=== PATIENT | male | born 1990 | race Caucasian/White ===

== ENCOUNTER 2018-07-18 16:07 | Emergency (ER) | payer BC, MEDICAID, SELFPAY ==
[2018-07-18 16:08] VITALS: BP 150/89; PULSE 78; RESP 16; TEMP 36.6; O2SAT 99; BMI 22.0
--- NOTE | 2018-07-18 16:44 | ED.VISSUMM ---
- ER Visit Summary Date of Service: 07/18/18 Chief Complaint: Right lower jaw dental pain. History of Present Illness: The patient is a 28 M lower jaw pain. Denies any fever. No swelling. Also pain radiating to his right ear. He does not have a primary care physician or a dentist. Physical Examination: Well appearing young male. Vital signs are stable. Afebrile. H EENT exam his face is unremarkable. There is no facial swelling. He is can easily open and close his mouth. There is no trismus. His right lower jaw the last molar on the right is very decayed. Large cavity large hole. The surrounding gum is swollen and tender. There is no drainable abscess. Other dentition are in reasonable shape. The upper dentition is unremarkable. Neck nontender no lymphadenopathy. Lungs clear to auscultation bilaterally. Heart regular rate and rhythm no murmur. Abdomen soft nontender. Otherwise exam unremarkable. Test Results: None Emergency Department Course and Treatment: Discharge follow-up with a oral surgeon. Treatment Plan: Evaluation by an oral surgeon at the right lower molar removed. Clindamycin for possible infection. Naprosyn for pain. Disposition: Discharge Impression: Right lower jaw molar pain secondary to dental cavity and dental infection This note was generated with [employer] dictation software. It may contain incorrect words, spelling, and punctuation that were not noted in review of the chart prior to signing ED Disposition - Plan for ED Patient: Chief Complaint: Dental Referrals: NOT,DEFINED [Primary Care Provider] -
--- NOTE | 2018-07-18 16:46 | ED.DEP ---
ED Disposition - Plan for ED Patient: Disposition: Home or Assisted Living Chief Complaint: Dental Instructions: ED Cavity Dental Prescriptions: Naproxen [Naprosyn] 500 mg PO BID PRN #20 tab Clindamycin [Cleocin] 300 mg PO 4X/DAY 10 Days cap Referrals: Bentley Milner DDS [STAFF PHYSICIAN] - As soon as possible Additional Instructions: Naprosyn for pain. Clindamycin for dental infection. Call and follow-up with Dr. Milner a local oral surgeon to be evaluated to possibly have that right lower molar tooth pulled.
[2018-07-18 16:59] VITALS: PULSE 82; RESP 17; O2SAT 98
== END 2018-07-18 17:00 | disposition home or self-care (01) ==
LOC: ED 16:56
PROVIDERS: Emergency Provider Emergency Medicine
DX: K02.9 Dental caries, unspecified (principal); K04.7 Periapical abscess without sinus; Z72.0 Tobacco use
CPT/HCPCS: 99282

== ENCOUNTER 2019-05-24 17:42 | Emergency (ER) | payer BC, MEDICAID, SELFPAY ==
[2019-05-24 17:43] VITALS: BP 129/84; PULSE 123; RESP 15; TEMP 36.6; O2SAT 97; BMI 22.0
--- NOTE | 2019-05-24 18:02 | ED.DCSUM_ITS ---
- ER Visit Summary Date of Service: 05/24/19 Chief Complaint: Left eye pain and swelling History of Present Illness: The patient is a 29 M who has pain and swelling of the left eye. Started a week ago. Is not getting any better. He is tried ibuprofen without any relief. Denies any visual changes. He denies any drainage. He does not wear any corrective lenses. He believes it may be a stye. Denies any injuries. Physical Examination: Vital signs reviewed. Left eye exam reveals a stye on the left lower eyelid. No drainage. No significant erythema. Extra ocular motions are intact without pain. Pupils are equal round reactive. Test Results: None performed Emergency Department Course and Treatment: Patient will be treated with bacitracin ophthalmic of the eye which will help on the lower eyelid. He will use warm compresses at home. Continue ibuprofen for pain. He will follow-up with ophthalmology Treatment Plan: [] Disposition: Discharge Impression: Left eye stye This note was generated with [employer] dictation software. It may contain incorrect words, spelling, and punctuation that were not noted in review of the chart prior to signing ED Disposition - Plan for ED Patient: Referrals: Care Physician,No Primary [Primary Care Provider] -
--- NOTE | 2019-05-24 18:04 | ED.DEP ---
ED Disposition - Plan for ED Patient: Disposition: Home or Assisted Living Instructions: Sty Referrals: Care Physician,No Primary [Primary Care Provider] - Butch Aguirre MD [STAFF PHYSICIAN] -
== END 2019-05-24 18:14 | disposition home or self-care (01) ==
LOC: ED 18:09
PROVIDERS: Emergency Provider Emergency Medicine
DX: H00.015 Hordeolum externum left lower eyelid (principal); Z72.0 Tobacco use
CPT/HCPCS: 99283

== ENCOUNTER 2019-07-16 22:45 | Emergency (ER) | payer BC, MEDICAID, SELFPAY ==
[2019-07-16 22:46] VITALS: BP 147/95; PULSE 114; RESP 16; TEMP 37.1; O2SAT 98; BMI 19.1
[2019-07-16 22:58] VITALS: TEMP 37.1
--- NOTE | 2019-07-16 23:13 | ED.DCSUM_ITS ---
- ER Visit Summary Date of Service: 07/16/19 Chief Complaint: Rash History of Present Illness: The patient is a 29 M with no primary care physician. He reports that last night he was stacking wood. States that he went to bed fine. Woke up this morning at 8 AM and had 2 lesions on his left arm and one on his right thumb. Reports that over the day he has had a red line that has extended from these. These areas do itch. He took a dose of Benadryl at 5 PM with relief of the itching. However, the red streaking continued to extend. Patient denies any constitutional symptoms. No fever, chills, nausea, or vomiting. On review of systems he does complain of pain to his left mandibular third molar. He states that he was supposed to have this pulled by Dr. Milner, but he had to reschedule this because his kids have been ill. Physical Examination: Vitals: Stable. Afebrile. General: Well-nourished and well-developed. Head: Normocephalic atraumatic. Dental: Left mandibular third molar is eroded to the gumline. There is no focal abscess. He has no trismus or edema the floor of his mouth. Neck: Supple, no lymphadenopathy. No JVD. Nontender. Cardiovascular: Regular rate and rhythm. No murmurs. Respiratory: No respiratory distress. Clear to auscultation bilaterally. Abdominal: Soft, nontender, nondistended, normal bowel sounds. No guarding, rebound, or peritoneal signs. Back: Nontender. Extremities: Nontender, no edema. Skin: Distal medial left forearm there is approximately 7 mm hive with what appears to be a 1 to 2 mm puncture in the middle of this. There is mild erythema. There is no induration or fluctuance. There is lymphangitic spread from this up into the antecubital fossa. The medial proximal left forearm there is a 4 cm hive. This looks similar to the other. There is no induration or fluctuance. However, there is no lymphangitic spread from this. On the lateral side of his right first metacarpal there is a 5 mm high. There is no induration or fluctuance here. However he has lymphangitic spread all the way up to the medial bicep. Neurologic: Alert and oriented ?3. Cranial nerves II through XII are intact. Normal strength and sensation. Psych: Normal affect. Emergency Department Course and Treatment: Patient was given a dose of clindamycin and prednisone p.o. Had a prolonged discussion with him about the possibility Jaelyn brown recluse bite. Clinically this does not appear to be c onsistent with this. There is no necrotic tissue. This appears to be a localized allergic reaction with lymphangitic spread. Treatment Plan: Patient will be discharged on clindamycin and 5 days of prednisone. Instructed to follow-up with Dr. Rain, who is next on list for no doc, in 2 days for a wound check. He is instructed to follow-up with Dr. Milner as previously scheduled for his dental extraction. He is also given the name of Dr. de to follow-up with that if this does end up being a brown recluse bite. He is instructed to return to the emergency department for any worsening symptoms. Disposition: To home in improved and stable condition. Impression: 1. Localized allergic reaction with lymphangitic spread to upper extremities bilaterally. 2. Dental pain. This note was generated with [employer] dictation software. It may contain incorrect words, spelling, and punctuation that were not noted in review of the chart prior to signing ED Disposition - Plan for ED Patient: Disposition: Home or Assisted Living Instructions: ALLERGIC REACTION, Other (Local) Prescriptions: Clindamycin [Cleocin] 300 mg PO 4X/DAY #80 cap Prescription Printed Prednisone [Deltasone] 60 mg PO DAILY #15 tab Prescription Printed Referrals: Mushtaq Galloway MD [STAFF PHYSICIAN] - 1 Week if not improving Bentley Milner DDS [STAFF PHYSICIAN] - Keep Rigoberto appointment Blessing Rain DO [STAFF PHYSICIAN] - 2 Days for wound check
[2019-07-16] MEDS: predniSONE 20 MG Tablet 60 MG PO (23:29)
[2019-07-16] MEDS: Clindamycin HCl 150 MG Capsule 300 MG PO (23:29)
[2019-07-16 23:33] VITALS: RESP 15
== END 2019-07-16 23:34 | disposition home or self-care (01) ==
LOC: ED 23:06
PROVIDERS: Emergency Provider Emergency Medicine
DX: T78.40XA Allergy, unspecified, initial encounter (principal); X58.XXXA Exposure to other specified factors, initial encounter; K08.89 Other specified disorders of teeth and supporting structures; Z72.0 Tobacco use
CPT/HCPCS: 99283

== ENCOUNTER 2021-04-04 19:06 | Emergency (ER) | payer BC, MEDICAID, SELFPAY ==
[2021-04-04 19:06] VITALS: BP 139/79; PULSE 92; RESP 18; TEMP 36.7; O2SAT 98; BMI 21.2
[2021-04-04 19:25] LABS: Bacteria 0 SEEN /hpf (None Seen); Mucous, Urine 0 SEEN /hpf (<or=2+); Red Blood Cells-Urine 0 SEEN /hpf (0-5); Squamous Epithelial Cells - UA 0 SEEN /hpf (0-5); White Blood Cells 0 SEEN /hpf (0-5)
[2021-04-04 19:27] LABS: Color, Urine Yellow (Yellow); Glucose, Dipstick Normal (Normal); Ketone-Dipstick Negative (Negative); Leukocyte Esterase-Dipstick Negative /ul (Negative); Nitrite-Dipstick Negative (Negative); Occult Blood-Urine Negative /ul (Negative); Protein-Dipstick Negative (Negative); Specific Gravity, Urine 1.005 (1.002-1.030); Urine Bilirubin Dipstick Negative (Negative); Urine Clarity Sl. Cloudy (Clear); Urine Urobilinogen Normal (Normal)
[2021-04-04 20:21] LABS: Absolute Lymphocyte Count 3.26 X10^3/uL (0.83-4.51); Absolute Neutrophil Count 7.7 X10^3/uL (2.0-7.7); Basophil# 0.06 X10^3/uL; Basophil% 0.5 % (0-1); Eosinophil# 0.18 X10^3/uL; Eosinophils% 1.5 % (0-5); Hematocrit 42.8 % (40-54); Hemoglobin 14.8 g/dL (13.0-16.5); Lymphocyte # 3.26 X10^3/ul (0.83-4.51); Lymphocyte % 27.2 % (19-41); Mean Corp Hgb Conc 34.6 g/dL (32-36); Mean Corpuscular Hgb 31.1 pg (27.0-32.0); Mean Corpuscular Volume 89.9 fL (80-94); Mean Platelet Vol. 9.5 fl (6.2-12.0); Monocyte# 0.72 X10^3/uL; NRBC Flagged by Analyzer 0 % (0-5); Neutrophil # 7.74 X10^3/uL (2.7-7.7); Neutrophil % 64.5 % (47-70); Platelet Count 271 K/mm3 (150-450); RBC Distribution Width CV 12.7 % (11.6-14.6); RBC Distribution Width SD 42.3 fl (35.1-43.9); Red Blood Count 4.76 M/mm3 (4.6-6.2)
[2021-04-04 20:34] LABS: Anion Gap 6 (5-15); BUN 14 mg/dL (7-18); BUN/Creat Ratio 14.3 RATIO (10-20); Chloride 106 mmol/L (98-107); Creatinine, Serum 0.98 mg/dL (0.70-1.30); EST Glomerular Filtration Rate 95 mL/min (>60); Est Glom Filt Rate - Afr Amer 116 mL/min (>60); Glucose 91 mg/dL (74-106); Potassium 3.9 mmol/L (3.5-5.1); Sodium Level 138 mmol/L (136-145)
[2021-04-04 21:54] LABS: AST(SGOT) 29 U/L (15-37); Alanine Aminotransfer ALT/SGPT 38 U/L (16-61); Albumin, Serum 4.3 g/dL (3.2-5.0); Alkaline Phosphatase 121 U/L (45-117); Bilirubin, Direct 0.19 mg/dL (0.00-0.30); Globulin 3.2 g/dL (2.2-4.2); Lipase 68 U/L (73-393); Protein, Total 7.5 g/dL (6.4-8.2)
--- NOTE | 2021-04-04 21:57 | EDS_ITS ---
HPI History of Present Illness Chief Complaint: Abd Pain Informant: patient Narrative Narrative: Patient is a 31-year-old male who presents to the emergency department for epigastric abdominal discomfort. This has been going on since this past Wednesday. This happens after eating. He is currently denying any significant pain. He denies any episodes of vomiting. He has not been nauseous. He denies any fevers or chills. No chest pain or shortness of breath. No radiation of the pain to his back. He had a few episodes of loose stools. No urinary symptoms. He states he does have a history of duodenal ulcers. He did take some Pepcid which gave him some mild relief. He does have a history of right inguinal hernia repair but no other abdominal surgeries. No urinary symptoms. PFSH PFSH Home Medications pantoprazole [Protonix] 40 mg PO DAILY #30 tab 04/04/21 [Rx Last Taken Unknown] Allergy/AdvReac Type Severity Reaction Status Date / Time Penicillins Allergy Hives Verified 04/04/21 19:08 Social History Smoking Status: Current every day smoker tobacco type: cigarettes ROS ROS ED Constitutional Constitutional ED: Denies chills or fever(s) Eyes Eyes: Denies change in vision ENT ENT ED: Denies epistaxis or rhinorrhea Cardiovascular Cardiovascular: Denies chest pain or palpitations Respiratory/Chest Respiratory/Chest: Denies cough, dyspnea or dyspnea on exertion Gastrointestinal Gastrointestinal: Reports abdominal pain and diarrhea; Denies constipation, melena or vomiting Genitourinary Genitourinary ED: Denies dysuria, hematuria or urinary frequency Musculoskeletal Musculoskeletal: Denies back pain or neck pain Integumentary Denies rash Neurologic Neurologic: Denies dizziness, headache(s) or weakness EXAM Physical Exam Const Vital Signs: 04/04/21 19:06 04/04/21 23:02 Temperature 98.1 F Temperature Source Temporal Pulse Rate 92 74 Respiratory Rate 18 17 Blood Pressure 139/79 H 123/71 H Blood Pressure Mean 99 Pulse Ox 98 99 Oxygen Delivery Method Room Air Positive well nourished and well developed General Appearance ED: well developed and NAD HEENT Reports normocephalic, head/scalp atraumatic and moist mucous membranes Eyes PERRL and EOMs intact bilaterally Neck supple Resp normal respiratory effort and clear to auscultation bilaterally Auscultation: Negative for rales, rhonchi or wheezes Cardio regular rate, regular rhythm and no murmurs GI normal to inspection, nondistended, normoactive bowel sounds and non-tender GI Narrative: Negative Kat sign. No pain over McBurney's point. Palpation: soft; Negative for guarding or rebound tenderness present Back/Spine no CVA tenderness Extremity normal to inspection General Extremety ED: Negative for edema or tenderness General Extremity: Negative for edema Neuro oriented x3, CN's II-XII intact bilaterally and no sensory deficits noted Sensorium / Orientation: alert Motor Exam: strength 5/5 throughout Psych mental status grossly normal Skin no rashes or lesions noted MDM MDM MDM Narrative Medical decision making narrative: Patient presents to the emergency department for epigastric pain. This is worse after eating. On arrival he is feeling better. He has no reproducible pain on my examination. Vital signs within normal limits. Basic lab work obtained. Patient's lab work did not reveal any significant acute abnormality. His white blood cell count was only minimally high. No elevation of his bilirubin or AST/ALT. His alkaline phos is mildly elevated. No urinary tract infection. He is resting comfortably in no symptoms throughout ED stay. Will recommend Protonix. This continues he may need ultrasound or EGD. He is to follow-up with his PCP. Return precautions are reviewed. He understands and is agreeable this plan. Lab Data Labs: Laboratory Results - last 24 hr 04/04/21 04/04/21 04/04/21 19:20 20:12 20:12 WBC 12.0 H RBC 4.76 Hgb 14.8 Hct 42.8 MCV 89.9 MCH 31.1 MCHC 34.6 RDW Std Deviation 42.3 RDW Coeff of Pipp[place] 12.7 Plt Count 271 MPV 9.5 Immature Gran % (Auto) 0.300 Neut % (Auto) 64.5 Lymph % (Auto) 27.2 [place] % (Auto) 6.0 Eos % (Auto) 1.5 Baso % (Auto) 0.5 Absolute Neuts (auto) 7.7 Absolute Lymphs (auto) 3.26 Nucleated RBC % 0 Sodium 138 Potassium 3.9 Chloride 106 Carbon Dioxide 26.0 Anion Gap 6 BUN 14 Creatinine 0.98 Estim Creat Clear Calc 99.00 Est GFR (MDRD) Af Amer 116 Est GFR (MDRD) Non-Af 95 BUN/Creatinine Ratio 14.3 Glucose 91 Calcium 9.0 Total Bilirubin Direct Bilirubin AST ALT Alkaline Phosphatase Total Protein Albumin Globulin Lipase Urine Color Yellow Urine Clarity Sl. Cloudy Urine pH 7.0 Ur Specific [place] 1.005 Urine Protein Negative Urine Glucose (UA) Normal Urine Ketones Negative Urine Occult Blood Negative Urine Nitrite Negative Urine Bilirubin Negative Urine Urobilinogen Normal Ur Leukocyte Esterase Negative Urine RBC 0 SEEN Urine WBC 0 SEEN Ur Squamous Epith Cells 0 SEEN Urine Bacteria 0 SEEN Urine Mucus 0 SEEN 04/04/21 20:12 WBC RBC Hgb Hct MCV MCH MCHC RDW Std Deviation RDW Coeff of [place] Plt Count MPV Immature Gran % (Auto) Neut % (Auto) Lymph % (Auto) [place] % (Auto) Eos % (Auto) Baso % (Auto) Absolute Neuts (auto) Absolute Lymphs (auto) Nucleated RBC % Sodium Potassium Chloride Carbon Dioxide Anion Gap BUN Creatinine Estim Creat Clear Calc Est GFR (MDRD) Af Amer Est GFR (MDRD) Non-Af BUN/Creatinine Ratio Glucose Calcium Total Bilirubin 0.60 Direct Bilirubin 0.19 AST 29 ALT 38 Alkaline Phosphatase 121 H Total Protein 7.5 Albumin 4.3 Globulin 3.2 Lipase 68 L Urine Color Urine Clarity Urine pH Ur Specific [place] Urine Protein Urine Glucose (UA) Urine Ketones Urine Occult Blood Urine Nitrite Urine Bilirubin Urine Urobilinogen Ur Leukocyte Esterase Urine RBC Urine WBC Ur Squamous Epith Cells Urine Bacteria Urine Mucus Discharge Plan Triage Chief Complaint: Abd Pain ED Provider: Santiago Childers Dx/Rx/DC Orders Clinical Impression: Abdominal pain Instructions: Abdominal Pain Prescriptions: New pantoprazole [Protonix] 40 mg tablet,delayed release (DR/EC) 40 mg PO DAILY Qty: 30 RF: 0 Primary Care Provider: Care Physician,No Primary Referrals: Care Physician,No Primary [Primary Care Provider] - 3-5 Days Disposition Disposition: Home, Self Care Discharge Date/Time: 04/04/21 23:02
[2021-04-04 23:02] VITALS: BP 123/71; PULSE 74; RESP 17; O2SAT 99
== END 2021-04-04 23:02 | disposition home or self-care (01) ==
PROVIDERS: Emergency Provider Emergency Medicine
DX: R10.13 Epigastric pain (principal); F17.210 Nicotine dependence, cigarettes, uncomplicated; Z87.11 Personal history of peptic ulcer disease
CPT/HCPCS: 80048; 80076; 81001; 83690; 85025; 99282; A4216

== ENCOUNTER 2021-12-18 07:28 | Emergency (ER) | payer BC, MEDICAID, SELFPAY ==
[2021-12-18 07:28] VITALS: BP 152/82; PULSE 71; RESP 16; TEMP 36.2; O2SAT 99; BMI 19.8
--- NOTE | 2021-12-18 08:03 | RAD_ITS ---
EXAM: XR CERVICAL SPINE, 4 OR 5 VIEWS CLINICAL INDICATION: neck pain TECHNIQUE: Frontal, lateral and bilateral oblique views of the cervical spine. This report was created using [employer] report generation technology. COMPARISON: None. FINDINGS: VERTEBRAE: Mild cervical kyphosis. Normal vertebral body heights and endplates. No spondylolisthesis. No significant facet arthropathy. DISC SPACES: Minimal C5-C6 disc space height narrowing. Normal remaining disc space heights. Normal bilateral cervical intervertebral neural foramina. SOFT TISSUES: Unremarkable. No prevertebral soft tissue widening. LUNG APICES: Clear. RAD/Cerv Spine 4 or 5 Views IMPRESSION: Minimal narrowing of the C5-C6 disc space height otherwise negative cervical spine radiographs. Electronically Signed: Db Garcia MD at 8:40 EDT ,
--- NOTE | 2021-12-18 08:04 | EX.ED.GENINJ ---
HPI History of Present Illness Chief Complaint: Other, Pain/Inj Narrative Narrative: 31-year-old male presenting with neck pain. He states it started after he was lifting heavy object on Wednesday. He states the pain is in his left trapezius and radiates to the lateral aspect of his left elbow. He denies any neck trauma. He states that he worked overnight and he was having trouble finishing his shift due to pain. He tried to make a appointment with his primary care physician but cannot get in until Wednesday. PFSH [facility] Medical History (Updated 12/18/21 @ 10:00 by Kitty Shaffer) Neck ache Home Medications pantoprazole [Protonix] 40 mg PO DAILY #30 tab 04/04/21 [Rx Last Taken Unknown] naproxen [Naprosyn] 500 mg PO BID PRN #20 tab 12/18/21 [Rx Last Taken Unknown] tizanidine [Zanaflex] 4 mg PO QHS PRN #14 tab 12/18/21 [Rx Last Taken Unknown] Allergy/AdvReac Type Severity Reaction Status Date / Time Penicillins Allergy Hives Verified 04/04/21 19:08 Social History Smoking Status: Current every day smoker tobacco type: cigarettes ROS ROS ED Constitutional Constitutional ED: Denies chills or fever(s) Eyes Eyes: Denies blurry vision ENT ENT ED: Denies rhinorrhea or sore throat Cardiovascular Cardiovascular: Denies chest pain or palpitations Respiratory/Chest Respiratory/Chest: Denies cough or dyspnea Gastrointestinal Gastrointestinal: Denies abdominal pain, nausea or vomiting Genitourinary Genitourinary ED: Denies dysuria or hematuria Musculoskeletal Musculoskeletal: Reports neck pain; Denies back pain Integumentary Denies rash Neurologic Neurologic: Denies headache(s), paresthesias or weakness EXAM Physical Exam Const Vital Signs: 12/18/21 07:28 Temperature 97.1 F L Temperature Source Temporal Pulse Rate 71 Respiratory Rate 16 Blood Pressure 152/82 H Blood Pressure Mean 105 Pulse Ox 99 Oxygen Delivery Method Room Air Positive well nourished General Appearance ED: NAD HEENT atraumatic Eyes PERRL and EOMs intact bilaterally Neck Neck Narrative: No midline spinal tenderness, deformity, step-off. There is tenderness to the left trapezius centrally. Left shoulder is nontender. He has full range of motion of the left shoulder. No pain palpated in the left upper extremity. Resp normal respiratory effort and clear to auscultation bilaterally Cardio regular rhythm Rate: regular rate Extremity normal to inspection and full ROM Neuro oriented x3 and CN's II-XII intact bilaterally Sensorium / Orientation: alert Skin no rashes or lesions noted and No no jaundice MDM MDM MDM Narrative Medical decision making narrative: Patient presenting with pain in the trapezius that radiates to the left side of his arm. It does not radiate into the hand. Patient given Toradol and Norflex IM. I obtained x-rays of the cervical spine which on my interpretation show no fracture or subluxation. The radiologist reads this as minimal disc narrowing at C5-C6. Patient felt improved with treatment. He is given Naprosyn and Zanaflex for home. Patient will follow up with PCP to resolution. Impression: 1. Cervical strain Radiography Diagnostic Testing: Clinical Impression(s) from Imaging Studies Cervical Spine X-Ray 12/18/21 08:03 IMPRESSION: Minimal narrowing of the C5-C6 disc space height otherwise negative cervical spine radiographs. Electronically Signed: Db Garcia MD at 8:40 EDT , Discharge Plan Triage Chief Complaint: Other, Pain/Inj ED Provider: Tani Merida Dx/Rx/DC Orders Instructions: Radiculopathy Cervical Prescriptions: New tizanidine [Zanaflex] 4 mg tablet 4 mg PO QHS PRN (Reason: muscle spasticity) Qty: 14 RF: 0 naproxen [Naprosyn] 500 mg tablet 500 mg PO BID PRN (Reason: pain) Qty: 20 RF: 0 No Action pantoprazole [Protonix] 40 mg tablet,delayed release (DR/EC) 40 mg PO DAILY Qty: 30 RF: 0 Stand Alone Forms: ED Work / School Excuse Primary Care Provider: Aristides Black Referrals: Aristides Black, PA [Primary Care Provider] - Disposition Disposition: Home, Self Care Discharge Date/Time: 12/18/21 10:01
[2021-12-18] MEDS: Orphenadrine 60 MG/2 ML Ampul IM (09:41)
[2021-12-18] MEDS: Ketorolac 15 MG/ML Vial IM (09:41)
== END 2021-12-18 10:01 | disposition home or self-care (01) ==
PROVIDERS: Emergency Provider Student in an Organized Health Care Education/Training Program; PCP Physician Assistant; Visit Provider Student in an Organized Health Care Education/Training Program
DX: S16.1XXA Strain of muscle, fascia and tendon at neck level, initial encounter (principal); F17.210 Nicotine dependence, cigarettes, uncomplicated; X58.XXXA Exposure to other specified factors, initial encounter
CPT/HCPCS: 72050; 96372; 99282

== ENCOUNTER → 2022-01-28 | Outpatient (CLI) | payer BC, MEDICAID, SELFPAY ==
--- NOTE | 2022-01-28 13:04 | MRI_ITS ---
STUDY: MRI CERVICAL SPINE WITHOUT CONTRAST REASON FOR EXAM: Male, 31 years old. pain, HNP c5-c6 left; neck and left arm pain TECHNIQUE: Standardized fat and water weighted pulse sequences were obtained in the sagittal and axial planes. Mild motion artifact is present. COMPARISON: Cervical spine x-ray dated December 18, 2021 FINDINGS: Normal foramen magnum and brainstem-cervical cord junction. Normal craniovertebral junction. Normal anterior atlantoaxial articulation. Normal odontoid process. There is straightening of the normal cervical lordosis. C2-3: Normal endplates. Mild disc desiccation. Normal disc height and morphology. Normal central canal and intervertebral neural foramina. C3-4: Normal endplates. Mild disc desiccation. Normal disc height and morphology. Normal central canal and intervertebral neural foramina. C4-5: Normal endplates. Mild disc desiccation. Normal disc height and morphology. Mild intrinsic central canal stenosis. Normal bilateral intervertebral neural foramina. C5-6: Normal endplates. Diffuse disc desiccation, mild disc space narrowing, and minimal annular bulging contributing to mild mass effect on anterior aspect of the cord and mild central canal stenosis. Moderate left foraminal stenosis at the origin with nerve root compression secondary to uncovertebral hypertrophy. Normal right neural foramen. C6-7: Normal endplates. Diffuse disc desiccation with mild disc space narrowing, with a left paracentral/foraminal disc protrusion contributing to moderate foraminal stenosis and compression of the nerve root at its origin. Mild intrinsic central canal stenosis and mass effect is also present on the anterior aspect of the cord asymmetric to the left. Normal right neural foramen. C7-T1: Normal endplates. Diffuse disc desiccation and mild posterior disc space narrowing with a shallow midline disc protrusion. Normal central canal and intervertebral neural foramina. Normal cervical cord. There is no demonstrated cervical cord syrinx cavity. Normal visualized soft tissue structures. MRI/Spine Cervical (Routine) IMPRESSION: 1. Multilevel degenerative changes, as described above. 2. C5-C6 and C6-C7 mild central canal stenosis and mild mass effect on anterior aspect of the cord and left foraminal stenosis with nerve root compression Electronically Signed: Miller Salinas MD at 16:09 EDT ,
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
== END | disposition home or self-care (01) ==
LOC: MRI 13:04
PROVIDERS: PCP Physician Assistant; Referring Provider Orthopaedic Surgery; Visit Provider Orthopaedic Surgery
DX: M50.222 Other cervical disc displacement at C5-C6 level (principal)
CPT/HCPCS: 70030; 72141

== ENCOUNTER 2022-02-17 07:29 | Observation (INO) | payer BC, MEDICAID, SELFPAY ==
--- NOTE | 2022-02-12 09:42 | EKG12_ITS ---
Test Reason : PREOP Blood Pressure : / mmHG Vent. Rate : 094 BPM Atrial Rate : 094 BPM P-R Int : 130 ms QRS Dur : 088 ms QT Int : 346 ms P-R-T Axes : 070 054 046 degrees QTc Int : 432 ms Normal sinus rhythm Normal ECG Confirmed by MELBA JARQUIN, SAMARA ([id number]), subeditor KORTNEY BRANNON [id number]) on 02/13/2022 10:33:40 A M Referred By: DOMINGUEZ Confirmed By:EMILY REILLY MD
[2022-02-12 10:15] LABS: Absolute Lymphocyte Count 2.39 X10^3/uL (0.83-4.51); Absolute Neutrophil Count 4.2 X10^3/uL (2.0-7.7); Basophil# 0.06 X10^3/uL; Basophil% 0.8 % (0-1); Eosinophil# 0.29 X10^3/uL; Eosinophils% 3.9 % (0-5); Hematocrit 44.1 % (40-54); Hemoglobin 15.2 g/dL (13.0-16.5); Lymphocyte # 2.39 X10^3/ul (0.83-4.51); Lymphocyte % 32.3 % (19-41); Mean Corp Hgb Conc 34.5 g/dL (32-36); Mean Corpuscular Hgb 32.5 pg (27.0-32.0); Mean Corpuscular Volume 94.2 fL (80-94); Mean Platelet Vol. 11.7 fl (6.2-12.0); Monocyte# 0.46 X10^3/uL; Monocyte% 6.2 % (0-10); NRBC Flagged by Analyzer 0 % (0-5); Neutrophil # 4.18 X10^3/uL (2.7-7.7); Neutrophil % 56.5 % (47-70); POSITIVE COUNT YES; Platelet Count 181 K/mm3 (150-450); RBC Distribution Width CV 14.2 % (11.6-14.6); RBC Distribution Width SD 49.1 fl (35.1-43.9); Red Blood Count 4.68 M/mm3 (4.6-6.2); White Blood Count 7.4 K/mm3 (4.4-11.0)
[2022-02-12 10:21] LABS: Prothrombin Time (Protime)PT. 12.9 SECONDS (11.7-14.9)
[2022-02-12 10:22] LABS: Partial Thromboplast Time 29.3 Seconds (24.1-36.2)
[2022-02-12 10:39] LABS: AST(SGOT) 26 U/L (15-37); Alanine Aminotransfer ALT/SGPT 38 U/L (16-61); Alkaline Phosphatase 108 U/L (45-117); Bilirubin, Direct 0.14 mg/dL (0.00-0.30); Globulin 3.2 g/dL (2.2-4.2); Magnesium 2.1 mg/dL (1.6-2.6); Protein, Total 7.2 g/dL (6.4-8.2)
[2022-02-12 10:54] LABS: Differential Indicated SCAN CRITERIA MET
[2022-02-12 11:08] LABS: Anion Gap 9 (5-15); BUN 10 mg/dL (7-18); BUN/Creat Ratio 12.1 RATIO (10-20); Calcium,Total 8.9 mg/dL (8.5-10.1); Chloride 109 mmol/L (98-107); Creatinine, Serum 0.83 mg/dL (0.70-1.30); EST Glomerular Filtration Rate 115 mL/min (>60); Est Glom Filt Rate - Afr Amer 140 mL/min (>60); Glucose 103 mg/dL (74-106); Sodium Level 141 mmol/L (136-145)
[2022-02-12 11:11] LABS: HIV - WCH Non-Reactive (Nonreactive); Hepatitis B Surface Antibody Non-Reactive; Hepatitis C Antibody Non-Reactive (Nonreactive)
[2022-02-12 14:38] LABS: Differential Comment SCANNED
[2022-02-13 11:06] LABS: Hepatitis A AB, Total Negative (Negative)
--- NOTE | 2022-02-16 14:18 | PCM.HP.BLA ---
History and Physical Date of Admission: 02/16/22 Wo Intake Vital Signs 01/09/22 08:31 Height 5 ft 8 in Weight: 131 lb BMI 19.9 Intake Visit Reasons: CERVICAL SPINE Allergies No Known Allergies Allergy (Verified 01/09/22 08:37) COUNTS INCLUDE 234 BEDS AT THE [facility] Medical History Neck ache Social History Smoking Status: Current every day smoker tobacco type: cigarettes HPI CERVICAL SPINE Details: Parts of this documentation were recorded by a scribe, this documentation accurately reflects the service provided and the decisions made by me, Dr. Oswaldo Snyder, DO 01/09/22 0829. RAMOS BLAKE is a 31 year old M NEW Pt here today for neck pain. Pt states 3 weeks ago he was moving a heavy TV and noticed a gradual pain in his neck which worsened over a few days. Pt states pain is on the left side with a burning nerve pain down his left arm and numbness in his thumb, index, and middle fingers. Pt states he has gone to 2 sessions of PT. Pt denies any previous injuries, surgeries, or injections on neck. Pt has had x-rays and a CT scan which he brought the disc for today. 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 This means he has to look up all the time. Is been very difficult to do of late after 3 weeks ago when he had the problem start lifting the heavy television. He describes a perfect C6 dermatome. The patient's pain has been severe. Medrol Dosepak barely touched it. On examination he has positive Spurling's to the left. He has pain down the arm with extension of his cervical spine. He has some weakness of the extensors of the wrist on the left. However the strange thing is that he also has weakness of the triceps with atrophy of the triceps on the left as compared to the right suggesting that its not only C6 but possibly also C7 nerve root unless he has an anomalous innervation. He has no long tract signs. Clonus is absent Babinski's are downgoing. 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 This completely straightens up the neck. We will order an MRI scan of the cervical spine as soon as is reasonably possible. He has 2 neurological deficits including the C6 and C7 nerve roots. Note that I can easily overpower his left triceps. I will see him after the MRI scan. He will probably need surgical intervention. Incidentally I will review the CT scan that was ordered but an MRI is still necessary. Ortho Exam General General: Yes no acute distress Neurologic: Yes alert and Yes oriented x3 Psychologic: Yes reasonable and appropriate Coding Level of Care Code Off vis,new,level 3 Diagnoses Herniated nucleus pulposus, Time Spent (min) 30 Assessment and Plan Assessment and Plan (1) Herniated nucleus pulposus,
[2022-02-17] VITALS (15 sets, daily range): BP systolic 111–134; BP diastolic 60–87; PULSE 79–93; RESP 12–18; TEMP 36.7–37.3; O2SAT 90–100; BMI 20.4
--- NOTE | 2022-02-17 | DISC_PTH ---
PATIENT: THELMA BLAKE LOC: MS3 U#:[id number] AGE/SX: 31/M [place] [facility] [place] [place]02/17/[address]: Dr. Oswaldo Snyder DO : 1990 BED: 1 DIS: 02/18/2022 SPEC #: [id number] RECD: 02/17/22 12:51 STATUS: MIO REShawna #: [id number] NATALIE: 02/17/22 00:[address]: Oswaldo Snyder DEPT: SURGICAL PATHOLOGY RECD BY: Jhon Bolaños ENTERED: 02/17/22 12:51 SP TYPE: DISC OTHR DR: ALIYA Zee Tissues: Intervertebral disc, NOS Procedures: Surgery Specimen Level III HEADER OPERATION: ERAS, anterior cervical fusion C6-7 PRE-OP DIAGNOSIS: Herniated nucleus polposus C6-7 TISSUE SUBMITTED: Cervical disc MICROSCOPIC DIAGNOSIS Intervertebral disc, C6-7, discectomy: Degenerative and reparative change. AM:mia 02/18/2022 MICROSCOPIC DESCRIPTION Slides are reviewed. GROSS DESCRIPTION Received in fixative is one container labeled with the patient's name and designated cervical disc. The specimen consists of multiple irregular fragments of shelton, indurated tissue that in aggregate measure 4 x 3.5 x 1 cm. Materials Tech sections are submitted in two cassettes. / SJ:mia 02/17/2022 TC:5 CPT: 53118
[2022-02-17] MEDS: dexAMETHasone 10 MG/ML Vial 8 MG IV (06:02)
[2022-02-17] MEDS: Lactated Ringers 1,000 ML 15 ML IV ×2 (06:04→11:13)
[2022-02-17] MEDS: Acetaminophen 500 MG Tablet 1000 MG PO (06:20)
[2022-02-17 06:21] LABS: Bedside Glucose 109 mg/dL (74-106)
[2022-02-17] MEDS: Clindamycin 900 MG/50 ML BAG 75 MG IV ×2 (08:00→16:13)
--- NOTE | 2022-02-17 08:15 | RAD_ITS ---
STUDY: X-RAY - CERVICAL SPINE REASON FOR EXAM: Male, 31 years old. POSITION CHECK #1 C6-7 ERAS, CERVICAL FUSION TECHNIQUE: 1 lateral view(s) of the cervical spine were obtained. COMPARISON: MRI of the cervical spine dated JANUARY 28, 2022 FINDINGS: The patient is intubated. A radiopaque/metallic surgical marker overlies the C6-C7 anterior aspect and intervertebral disc space. Normal anterior atlantoaxial articulation. Normal odontoid process. Normal cervical lordosis. There is multi-level endplate spondylosis. Minimal disc space narrowing at several levels. The soft tissue structures are unremarkable. RAD/Spine 1 View Any Level IMPRESSION: 1. A radiopaque/metallic surgical marker overlies the C6-C7 anterior aspect and intervertebral disc space Electronically Signed: Miller Salinas MD at 8:46 EDT ,
[2022-02-17] MEDS: Heparin 10,000 UNITS/10 ML Vial 10000 UNITS (08:46)
[2022-02-17] MEDS: THROMBIN (RECOMBINANT) 20,000 UNIT VIAL 20000 UNIT TOPICAL (08:46)
--- NOTE | 2022-02-17 09:05 | RAD_ITS ---
INDICATION: ERAS, ANTERIOR CERVICAL FUSION C5-7, C6-7 EXAMINATION/TECHNIQUE: X-RAY - XR Spine Cervical 1 View COMPARISON: Intraoperative single lateral view cervical spine radiograph from same day. FINDINGS: Intraoperative single lateral view of the left cervical spine was obtained for position check of the surgical pin. Surgical pin terminates in the C6-C7 intervertebral disc space. Remainder of the exam is unchanged. RAD/Spine 1 View Any Level IMPRESSION: Surgical pin now terminates in the C6-C7 intervertebral disc space.. Electronically Signed: Joce Connolly, at 9:42 EDT ,
--- NOTE | 2022-02-17 10:15 | RAD_ITS ---
EXAM: XR CERVICAL SPINE, 1 VIEW CLINICAL INDICATION: IMAGE 3 neck pain fusion TECHNIQUE: Lateral view of the cervical spine. This report was created using [employer] report generation technology. COMPARISON: Study done earlier today. FINDINGS: VERTEBRAE: Unremarkable. Preserved vertebral body height. No acute fracture. No spondylolisthesis. Preservation of the normal cervical lordosis. No significant facet arthropathy. DISC SPACES: Spinal fixation hardware noted in the spine at C6-7. There is/ are disc spacer(s) in place. SOFT TISSUES: Unremarkable. No prevertebral soft tissue widening. LUNG APICES: Clear. RAD/Spine 1 View Any Level IMPRESSION: Spinal fixation hardware noted in the spine at C6-7. There is/ are disc spacer(s) in place. Electronically Signed: Pietro Nath MD at 16:49 EDT ,
--- NOTE | 2022-02-17 10:42 | OP.PCM_ITS ---
Report of Operation Date of Procedure: 02/17/22 Description of Surgical Findings:: Preoperative diagnosis: Herniated disc C6-7 with severe left C7 radiculopathy Postoperative diagnosis: The same Procedures: #1 anterior cervical fusion C6-7 CPT code 07903 #2 anterior spine plate C6-7 CPT code 12920/59 #3 insertion of titanium cage C6-7 CPT code 24601 Surgeon: Dr. Snyder First assistants: No PISANO and Court Maloney NP Anesthesia: General endotracheal anesthesia administered by [facility] Estimated blood loss: Less than 30 cc Drains: 1/4 inch Turtlepoint Complications: None Procedure: Patient was taken to the OR where he was placed in the supine position on the operating table he was then placed under general endotracheal anesthesia. A Goldsmith catheter was inserted. Neuro monitoring placed their leads on the patient. A Kerlix was placed from 1 wrist to the other around the feet purposes of pulling down the shoulders during x-ray taking. Then prepped the right crest and the cervical area in the standard fashion. Initially was made a small incision over the right iliac crest and unit using a Jamshidi needle through the small incision and then into the bone and tamped into place 60 cc of BMA were obtained that were handed off to the technicians in the room the the stem cells from the rest of the cells and concentrated the stem cells 8-10 times. These were returned to us. Alignment incision starting in the midline at the predetermined point. At that point was made with a very small incision using the end of a needle and it was done preoperatively prior to the prep. Incision was carried to the right sternocleidomastoid muscle subcutaneous tissues were incised length of skin incision. We then elevated the subcutaneous tissues both cephalad and caudad exposing the platysma. Platysma was split along its medial border and the planes then exploited. First I opened the superficial cervical fascia followed by the exploitation of the pretracheal fascia. This fashion the trachea and esophagus were pulled to the left the carotid which was of course identified was then pulled to the right exposing the precervical fascia. We then identified what was thought to be C6-7 however needle was placed in there and the x-ray demonstrated that we were at C7-T1 so we simply moved up 1 level took another x-ray to confirm that it was 6 7 which it was before removal of the needle then cauterized a hole in the center of the disc to prevent losing the level. I then first to cauterize the anterior longitudinal ligament and periosteum above and below the space I then cauterized the edge of the coli muscles on each side and elevated them gently off of the disc space. Self-retaining belt maker retractors were then put in place giving us good access. We used a 15 blade to cut the anterior annulus removed it with pituitary rongeurs and then removed more nucleus from within the disc space with pituitary rongeurs and eventually with curettes. The curettes were also used to remove the thickened cartilage off of both endplates. Gave us good access by putting a distractor in on the right side giving us more exposure. Using a carlos bur I was able to remove the uncinate process posteriorly and large it and remove a little bit also of C6. In this fashion we took the pressure completely off of the base of the C7 nerve root. It was then checked with a nerve hook was found to be quite open in its foramen. I then used the carlos bur to bur the anterior osteophytes and flatten them out. I then used a trial 14 x 16-1/2 cage first we used an 8 and then we trialed up to a 9. This was the correct size. We had anesthesia pulled on the head for this of course. We then used the broaches to broach the space and the appropriate 9 mm large cage was opened. Filled it with demineralized bone matrix and we then soaked the bone matrix in the patient's own stem cells. Esthesia pulling on the head it was then tamped into place and countersunk a couple of millimeters. We then used a 26 mm spider plate centered at placed [address] and then used the awl to punch the other 3 holes 1 at a time followed by insertion of 14mm screws at each point and lastly we removed the locking pin and replaced it with another 14 mm screw. This was observed with a lateral x-ray was found to be satisfactory with excellent position of the cage the plate and the screws. Irri gation was carried out we then used a amniotic membrane on top of the plate to prevent adhesions to the trachea or the esophagus. Closure was then begun noted we did put in 1/4 inch Turtlepoint drain. Was platysma running fashion with 5-0 Vicryl and the skin was approximated using 5-0 Vicryl in interrupted fashion. 0 dressings were then applied and a safety pin was placed through the drain to prevent a suction into the wound. The patient was then recovered in the OR moved to his hospital bed and taken to recovery in satisfactory condition. This is the end of operative summary on Ramos Ruggiero. This is Dr. Snyder dictating.
--- NOTE | 2022-02-17 13:32 | PN.HOSP_ITS ---
Subjective Subjective Follow-up on postop medical management: 31y/o male with no significant PMHx except for nicotine dependence who comes in for elective neck surgery. Patient has been having neck pain that was noticed after moving a heavy TV. Associated with burning nerve pain down his left arm and numbness in his thumb index and middle fingers. 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 MRI of the cervical spine showed multilevel degenerative changes. There was C5-C6 and C6-7 mild central canal stenosis mass-effect on anterior protocol and left foraminal stenosis with nerve root compression. He had evidence of left triceps with weakness and atrophy. He had anterior cervical fusion of C6-7, anterior spine plate C6-C7, insertion of titanium cage C6-C7. Patient was seen in the postop period. He denied any new pain. He stated that his numbness and tingling was gone. He is able to move his upper extremities and lower extremities. Rest of review of systems is negative. Objective Data Objective Data Vital Signs: Vital Signs Temp Pulse Resp BP Pulse Ox 98.3 F 89 18 121/71 H 94 02/17/22 13:08 02/17/22 13:08 02/17/22 13:08 02/17/22 13:08 02/17/22 13:08 Oxygen Flow Rate (L/min) 4 Oxygen Delivery Method Room Air Weight: 61 kg Body Mass Index (BMI) 20.4 Intake & Output: Intake and Output for Last 24 Hours 02/15/22 02/16/22 02/17/22 23:59 23:59 23:59 Intake Total 2152 / 2152 Output Total 1000 / 1000 Balance 1152 / 1152 Lab / Micro Data Result Diagrams: 02/12/22 09:28 02/12/22 09:28 Labs: Laboratory Results - last 24 hr 02/17/22 06:10: POC Glucose 109 H Micro: Microbiology 02/12/22 09:28 Swab (Method) Nasal Screen MRSA/MSSA - Final Radiography Diagnostic Testing: Radiology Impression Spine X-Ray 02/17/22 08:15 IMPRESSION: 1. A radiopaque/metallic surgical marker overlies the C6-C7 anterior aspect and intervertebral disc space Electronically Signed: Miller Salinas MD at 8:46 EDT Reading Location ID and State: [facility] / [place] , Service support , Spine X-Ray 02/17/22 09:05 IMPRESSION: Surgical pin now terminates in the C6-C7 intervertebral disc space.. Electronically Signed: Joce Connolly, at 9:42 EDT , Physical Exam Narrative Physical exam: General: Alert, Oriented x3, Cooperative, No apparent distress HEENT: Soft cervical spine in place Oral: Moist Mucosa Neck: Supple Lungs: Clear to auscultation Cardiovascular: HS I+II, regular, no murmurs Abdomen: Bowel Sounds Present, Soft, Non Tender Extremities: No edema Skin: No rashes, No breakdown Neurological: Grossly intact Psych/Mental Status: Appropriate Assessment & Plan Assessment/Plan (1) Herniated nucleus pulposus, C5-6 left: (2) Herniated nucleus pulposus, C6-7 left: PLAN: 1. POD #0, s/p cervical spine surgery?anterior cervical fusion, anterior cervical plate C6-C7 Patient with herniated disc (C6-7)with severe left C7 radiculopathy Pain is fairly controlled, continue on dexamethasone, pain medication, IV fluids PT and OT to evaluate and treat Follow-up on recommendations from neurosurgery. 2. Nicotine dependence, on replacement 3. DVT prophylaxis?SCDs Charges/Coding Visit Charges Office Visits / Consults: 44873 OV L4 New
[2022-02-17] MEDS: oxyCODONE 5 MG Tablet PO ×3 (13:37→21:40)
[2022-02-17] MEDS: dexAMETHasone 4 MG/ML Vial IV ×2 (13:38→18:46)
[2022-02-17] MEDS: 0.9% Saline Lock 10 ML Syringe IV ×2 (13:38→22:44)
[2022-02-17] MEDS: Nicotine Polacrilex 2 MG GUM PO ×2 (15:23→18:45)
[2022-02-17] MEDS: Lactated Ringers 1,000 ML 100 ML IV (16:13)
[2022-02-17] MEDS: Ensure Surgery 237 ML LIQUID PO (16:13)
[2022-02-17] MEDS: Morphine 2 MG/ML Syringe IV (22:44)
[2022-02-18] MEDS: Clindamycin 900 MG/50 ML BAG 75 MG IV (00:02)
[2022-02-18] MEDS: 0.9% Saline Lock 10 ML Syringe IV ×3 (00:02→09:09)
[2022-02-18] MEDS: dexAMETHasone 4 MG/ML Vial 2 MG IV ×2 (00:03→05:44)
[2022-02-18] MEDS: Lactated Ringers 1,000 ML 100 ML IV (03:28)
[2022-02-18] MEDS: oxyCODONE 5 MG Tablet PO ×3 (03:30→13:31)
[2022-02-18 03:42] VITALS: BP 119/74; PULSE 67; RESP 18; TEMP 36.8; O2SAT 98
[2022-02-18 05:17] LABS: Absolute Lymphocyte Count 0.86 X10^3/uL (0.83-4.51); Absolute Neutrophil Count 14.2 X10^3/uL (2.0-7.7); Basophil# 0.01 X10^3/uL; Basophil% 0.1 % (0-1); Hematocrit 38.6 % (40-54); Hemoglobin 13.3 g/dL (13.0-16.5); Lymphocyte # 0.86 X10^3/ul (0.83-4.51); Lymphocyte % 5.3 % (19-41); Mean Corp Hgb Conc 34.5 g/dL (32-36); Mean Corpuscular Hgb 32.5 pg (27.0-32.0); Mean Corpuscular Volume 94.4 fL (80-94); Monocyte# 1.01 X10^3/uL; Monocyte% 6.2 % (0-10); NRBC Flagged by Analyzer 0 % (0-5); Neutrophil # 14.17 X10^3/uL (2.7-7.7); Neutrophil % 87.7 % (47-70); Platelet Count 230 K/mm3 (150-450); RBC Distribution Width CV 14.1 % (11.6-14.6); RBC Distribution Width SD 49.2 fl (35.1-43.9); Red Blood Count 4.09 M/mm3 (4.6-6.2); White Blood Count 16.2 K/mm3 (4.4-11.0)
[2022-02-18 05:40] LABS: ALB/GLOB Ratio 1.1 RATIO (0.9-2.4); AST(SGOT) 25 U/L (15-37); Alanine Aminotransfer ALT/SGPT 36 U/L (16-61); Albumin, Serum 3.4 g/dL (3.2-5.0); Alkaline Phosphatase 92 U/L (45-117); Anion Gap 6 (5-15); BUN 7 mg/dL (7-18); BUN/Creat Ratio 12.7 RATIO (10-20); Calcium,Total 8.7 mg/dL (8.5-10.1); Chloride 106 mmol/L (98-107); Creatinine, Serum 0.55 mg/dL (0.70-1.30); EST Glomerular Filtration Rate 184 mL/min (>60); Est Glom Filt Rate - Afr Amer 223 mL/min (>60); Estimated Creatinine Clearance 169.44 ml/min; Glucose 147 mg/dL (74-106); Potassium 4.1 mmol/L (3.5-5.1); Protein, Total 6.4 g/dL (6.4-8.2); Sodium Level 138 mmol/L (136-145)
[2022-02-18 09:08] VITALS: BP 111/75; PULSE 81; RESP 18; TEMP 37; O2SAT 99
--- NOTE | 2022-02-18 09:51 | PN.HOSP_ITS ---
Subjective Subjective Follow-up on postop medical management: Patient was seen and examined. Patient complained of neck pain. He denied any fever or chills. He is able to move all extremities. Objective Data Objective Data Vital Signs: Vital Signs Temp Pulse Resp BP Pulse Ox 98.6 F 81 18 111/75 99 02/18/22 09:08 02/18/22 09:08 02/18/22 09:08 02/18/22 09:08 02/18/22 09:08 Oxygen Flow Rate (L/min) 4 Oxygen Delivery Method Room Air Weight: 61 kg Body Mass Index (BMI) 20.4 Intake & Output: Intake and Output for Last 24 Hours 02/16/22 02/17/22 02/18/22 23:59 23:59 23:59 Intake Total 4175.33 / 4175.33 1090.00 / 1090.00 Output Total 3800 / 5650 2550 / 2550 Balance 375.33 / -1474.67 -1460.00 / -1460.00 Lab / Micro Data Result Diagrams: 02/18/22 05:06 02/18/22 05:06 Labs: Laboratory Results - last 24 hr 02/18/22 05:06: WBC 16.2 H, RBC 4.09 L, Hgb 13.3, Hct 38.6 L, MCV 94.4 H, MCH 32.5 H, MCHC 34.5, RDW Std Deviation 49.2 H, RDW Coeff of Pippa 14.1, Plt Count 230, MPV 10.0, Immature Gran % (Auto) 0.700, Neut % (Auto) 87.7 H, Lymph % (Auto) 5.3 L, [place] % (Auto) 6.2, Eos % (Auto) 0.0, Baso % (Auto) 0.1, Absolute Neuts (auto) 14.2 H, Absolute Lymphs (auto) 0.86, Nucleated RBC % 0 02/18/22 05:06: Sodium 138, Potassium 4.1, Chloride 106, Carbon Dioxide 26.0, Anion Gap 6, BUN 7, Creatinine 0.55 L, Estim Creat Clear Calc 169.44, Est GFR (MDRD) Af Amer 223, Est GFR (MDRD) Non-Af 184, BUN/Creatinine Ratio 12.7, Glucose 147 H, Calcium 8.7, Total Bilirubin 0.70, AST 25, ALT 36, Alkaline Phosphatase 92, Total Protein 6.4, Albumin 3.4, Globulin 3.0, Albumin/Globulin Ratio 1.1 Micro: Microbiology 02/12/22 09:28 Swab (Method) Nasal Screen MRSA/MSSA - Final Radiography Diagnostic Testing: Radiology Impression Spine X-Ray 02/17/22 10:15 IMPRESSION: Spinal fixation hardware noted in the spine at C6-7. There is/ are disc spacer(s) in place. Electronically Signed: Pietro Nath MD at 16:49 EDT Reading Location ID and State: [facility] / [place] , Service support , Physical Exam Narrative General: Alert, Oriented x3, Cooperative, No apparent distress HEENT: Soft cervical spine in place Oral: Moist Mucosa Neck: Supple Lungs: Clear to auscultation Cardiovascular: HS I+II, regular, no murmurs Abdomen: Bowel Sounds Present, Soft, Non Tender Extremities: No edema Skin: No rashes, No breakdown Neurological: Grossly intact Psych/Mental Status: Appropriate Assessment & Plan Assessment/Plan (1) Herniated nucleus pulposus, C5-6 left: (2) Herniated nucleus pulposus, C6-7 left: PLAN: 1. POD #1, s/p cervical spine surgery?anterior cervical fusion, anterior cervical plate C6-C7 Patient with herniated disc (C6-7)with severe left C7 radiculopathy Continue on dexamethasone, pain medication, IV fluids PT/OT to evaluate and treat Follow-up on recommendations from neurosurgery. 2. Nicotine dependence, on replacement 3. DVT prophylaxis?SCDs Charges/Coding Visit Charges Inpatient E&M: 60711 Subs Hosp L2
--- NOTE | 2022-02-18 10:30 | CASEMGMT ---
RN STEPHANIE Assessment: Face to Face with pt for initial transition planning/care coordination assessment. RN CM introduced self and role at [facility], pt voices understanding and consents to assessment. Pt is A/O x4 and answers all questions appropriately at this time. Pt sitting up in bed in no distress. Care providers, pharmacy, and demographics verified/updated. Admitting Dx: Anterior cervical fusion PCP:ALIYA Cates Specialists:Claudio, spine surgeon Preferred Pharmacy: [facility] Retail Insurance: [employer] [place] [employer] Prescription Benefit: yes LW/HPOA: Pt denies having a LW/DPOA and denies need for info regarding AD. LNOK: Froylan Ruggiero, father; Emily Ruggiero, Living Arrangements: Pt lives with and 4 children in a three story home with 5 steps to enter with a rail. Pt reports he is I in ADL's and denies concerns at home. Transportation: Pt drives self and denies concerns with transportation. Pt able to transport until pt able to drive. DME/HHC/SNF: Pt has crutches at home, does not typically use AD. Pt denies hx of HHC or SNF stays. Pt states no concerns with going home at time of dc. Pt states no further concerns/needs. CM to follow. Advised pt to ask CM if any further question/concerns/needs arise, voices understanding. Pt Goal: Home Plan: Home
[2022-02-18] MEDS: Acetaminophen 500 MG Tablet 1000 MG PO (12:17)
--- NOTE | 2022-02-18 13:03 | PCM.DC ---
Discharge Instructions Follow Up Care Test Results: Test results from this visit will be discussed in further detail at your follow-up appointment, if applicable. Discharge Plan Admission Admit Date/Time: 02/17/22 07:29 Primary Reason for Your Visit: cervical fusion Attending Provider: Oswaldo Snyder Primary Care Provider: Aristides Black Consulting Providers: Kaya Yepez Discharge Orders/Prescriptions Prescriptions: No Action cyclobenzaprine 10 mg Tablet 10 mg PO TID PRN (Reason: Pain) RF: 0 naproxen 500 mg Tablet,Delayed Release (Dr/Ec) 500 mg PO BID RF: 0 Referrals / Follow Up: Aristides Black, PA [Primary Care Provider] - Disposition Disposition (needs filled in before D/C Order can be placed): Home, Self Care
--- NOTE | 2022-02-18 13:04 | PCM.DC.SUM ---
Providers Date of Admission: 02/17/22 Primary Care Physician: ALIYA Zee Consultations 02/17/22 12:52 Consult: Hospitalist Routine Consulting Provider: Kaya Yepez Reason for Consult: med management EMERGENT Consult: No MD Notified: Yes Date Notified: 02/17/22 Time Notified: 13:12 Method of Notification: Text Reason For Visit: ANTERIOR CERVICAL FUSION Diagnosis Discharge Diagnosis (1) Herniated nucleus pulposus, C5-6 left: Status: Acute Code(s): M50.222 - Other cervical disc displacement at C5-C6 level (2) Herniated nucleus pulposus, C6-7 left: Status: Acute Code(s): M50.223 - Other cervical disc displacement at C6-C7 level Medications at Discharge Home Medications cyclobenzaprine 10 mg PO TID PRN 02/09/22 naproxen 500 mg PO BID 02/09/22 Hospital Course Summary of Care Provided Hospital Course: This patient was admitted yesterday. He underwent anterior cervical fusion at the C6-7 level. He tolerated the procedure well. Today he reports his his left arm pain is completely gone. His tricep strength has increased. His voice is clear. He has no Carl syndrome. Change the dressing and remove the drain. Incision is dry and healing well. I gave him directions regarding his activities. He is also to make an appointment 1 week from to see me in the office. He is given oxycodone 01/27/2025's for pain #40. Weight / BMI Weight Weight: 134 lb 7.712 oz Body Mass Index (BMI) 20.4 ABG / Lab / Microbiology Data Result Diagrams: 02/18/22 05:06 02/18/22 05:06 Laboratory: Laboratory Results - last 24 hr 02/18/22 05:06: WBC 16.2 H, RBC 4.09 L, Hgb 13.3, Hct 38.6 L, MCV 94.4 H, MCH 32.5 H, MCHC 34.5, RDW Std Deviation 49.2 H, RDW Coeff of Pippa 14.1, Plt Count 230, MPV 10.0, Immature Gran % (Auto) 0.700, Neut % (Auto) 87.7 H, Lymph % (Auto) 5.3 L, [place] % (Auto) 6.2, Eos % (Auto) 0.0, Baso % (Auto) 0.1, Absolute Neuts (auto) 14.2 H, Absolute Lymphs (auto) 0.86, Nucleated RBC % 0 02/18/22 05:06: Sodium 138, Potassium 4.1, Chloride 106, Carbon Dioxide 26.0, Anion Gap 6, BUN 7, Creatinine 0.55 L, Estim Creat Clear Calc 169.44, Est GFR (MDRD) Af Amer 223, Est GFR (MDRD) Non-Af 184, BUN/Creatinine Ratio 12.7, Glucose 147 H, Calcium 8.7, Total Bilirubin 0.70, AST 25, ALT 36, Alkaline Phosphatase 92, Total Protein 6.4, Albumin 3.4, Globulin 3.0, Albumin/Globulin Ratio 1.1 Microbiology: Microbiology 02/12/22 09:28 Swab (Method) Nasal Screen MRSA/MSSA - Final Radiography Diagnostic Testing: Radiology Impression Spine X-Ray 02/17/22 10:15 IMPRESSION: Spinal fixation hardware noted in the spine at C6-7. There is/ are disc spacer(s) in place. Electronically Signed: Pietro Nath MD at 16:49 EDT Reading Location ID and State: [facility] [place] / [place] , Service support , Meaningful Use Info Meaningful Use Diagnoses (Choose all that apply): None applicable Discharge Plan Admission Admit Date/Time: 02/17/22 07:29 Primary Reason for Your Visit: cervical fusion Attending Provider: Oswaldo Snyder Primary Care Provider: Aristides Black Consulting Providers: Kaya Yepez Discharge Orders/Prescriptions Prescriptions: No Action cyclobenzaprine 10 mg Tablet 10 mg PO TID PRN (Reason: Pain) RF: 0 naproxen 500 mg Tablet,Delayed Release (Dr/Ec) 500 mg PO BID RF: 0 Referrals / Follow Up: Aristides Black PA [Primary Care Provider] - Disposition Disposition (needs filled in before D/C Order can be placed): Home, Self Care
[2022-02-18 15:21] VITALS: BP 115/73; PULSE 78; RESP 18; TEMP 36.9; O2SAT 98
== END 2022-02-18 16:38 | disposition home or self-care (01) ==
LOC: SDC 11:35 → MS3 11:35
PROVIDERS: Anesthesiology; Internal Medicine; Admitting Provider Orthopaedic Surgery; PCP Physician Assistant; Referring Provider Orthopaedic Surgery; Visit Provider Orthopaedic Surgery
PROC: (CPT 22551; principal; 2022-02-17 07:00)
DX: M47.22 Other spondylosis with radiculopathy, cervical region (principal); F17.210 Nicotine dependence, cigarettes, uncomplicated; M48.02 Spinal stenosis, cervical region; M50.222 Other cervical disc displacement at C5-C6 level
CPT/HCPCS: 22551; 22845; 22853; 00670; 20931; 36415; 72020; 80048; 80053; 80076; 82962; 83735; 85025; 85610; 85730; 86703; 86706; 86708; 86803; 87081; 88304; 93005; 96361; 96365; 96366; 96375; 96376; 97161; 99218; 99251; 99406; C1713; J7120; A4216; G0378; G0463; J3475

== ENCOUNTER 2025-05-19 13:49 | Emergency (ER) | payer BC, MEDICAID, SELFPAY ==
[2025-05-19 13:50] VITALS: BP 148/103; PULSE 92; RESP 16; TEMP 37.2; O2SAT 100; BMI 21.4
--- NOTE | 2025-05-19 13:59 | RAD_ITS ---
PROCEDURE: HAND MIN 3 VIEWS 05/19/2025 REASON FOR EXAM: FALL, PAIN/SWELLING. Initial encounter. TECHNIQUE: HAND MIN 3 VIEWS Laterality: Right COMPARISON: None. FINDINGS: Bones: No fracture appreciated. Joints: No significant arthritis Soft tissues: Difficult to assess soft tissues. Palmar surface swelling may be present. Other: RAD/Hand Min 3 Views IMPRESSION: No acute fracture appreciated. Reading Location: [facility]
--- NOTE | 2025-05-19 15:33 | EX.ED.UPPERE ---
HPI History of Present Illness Chief Complaint: Upper Extremity Injury Narrative Narrative: 35-year-old male who denies significant past medical history, [id number], presents with injury to his right hand that he sustained yesterday evening. He states that he was in a foot race, running in the street, when he fell forward and tumbled falling onto his hands. He now has pain in his right hand at the base of his right thumb. He denies other injuries. He states he is here because he wants to make sure that his hand is not broken. His pain is located in the thenar eminence and he denies any wrist pain or elbow pain. [facility] Medical History Anxiety Alcohol use History of steroid therapy Arthritis Excessive bleeding Injury of head and neck Heartburn Smoker Neck ache Allergy/AdvReac Type Severity Reaction Status Date / Time Penicillins Allergy Hives Verified 05/19/25 13:50 horseradish AdvReac PT UNSURE Verified 05/19/25 13:50 OF REACTION tramadol (From Ultram) AdvReac Swelling Verified 05/19/25 13:50 Family History no significant family his Surgical History Hx of wisdom tooth extraction Hx of inguinal hernia surgery Social History Smoking Status: Current every day smoker tobacco type: cigarettes ROS ROS ED ROS Narrative Review of systems positive for right hand pain at the base of the right thumb. Worse with palpation and movement of his right thumb. No wrist pain, no elbow pain, denies other injuries. EXAM Physical Exam Narrative Exam Narrative: GCS 15. ABCs are intact. Cardiovascular examination regular rate and rhythm. Lungs clear to auscultation bilaterally. Abdomen soft nontender without guarding or rebound. Positive bowel sounds. Focused examination of the right hand does show mild tenderness to palpation in the right palmar thenar eminence. He is able to oppose his thumb. Good capillary refill of thumb. No tenderness to distal radius. Full range of motion of wrist. Palpable radial pulse. Const Vital Signs: 05/19/25 13:50 Temperature 99.0 F Temperature Source Oral Pulse Rate 92 Respiratory Rate 16 Blood Pressure 148/103 H Blood Pressure Mean 118 Pulse Ox 100 Oxygen Delivery Method Room Air MDM MDM MDM Narrative Medical decision making narrative: Differential diagnosis includes but not limited to hand contusion versus fracture versus sprain/strain. Patient declines any oral analgesics and declined ice pack. X-rays were obtained of the right hand and 3 views per protocol and interpreted by myself independently. On my independent interpretation of x-rays of the right hand, there is no evidence of acute fracture or dislocation. I reviewed the radiology report which confirms my independent interpretation. At this point in time I feel he can be discharged to take [id number] medications like Tylenol and ibuprofen and continue ice and elevation as needed for pain. He was agreeable to a Velcro thumb spica splint for support. He will follow-up with his primary care provider. Return instructions reviewed. Disposition is discharged home in stable condition. History & Record Review Discussion w/independent historian: Patient Discharge Plan Triage Chief Complaint: Upper Extremity Injury ED Provider: Db Lund Dx/Rx/DC Orders Clinical Impression: Contusion of hand, right, Sprain of right thumb Instructions: ED Hand Contusion Primary Care Provider: Care Physician,No Primary Referrals: Aristides Black PA [Non-Staff] - 1 Week if not improving Activity Restrictions/Additional Instructions: [id number] medications like Tylenol or ibuprofen as needed for pain. Wear the thumb spica splint for support. You may remove it for bathing and sleeping. Exercise your right thumb a few times a day. Follow-up with your primary care provider. Return with new or worsening symptoms. Print Language: Liberian Disposition Disposition: Home, Self Care
--- OUTSIDE RECORDS SUMMARY | 2025-05-19 15:41 | XMS RPT_ITS | CCD ---
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 or subluxations are noted. The disc spaces are well preserved. There is mild osteophyte formation. The neural foramina are patent. The prevertebral soft tissues are normal. IMPRESSION IMPRESSION: Status post C6-7 anterior spinal fusion. Cervical spine mild degenerative changes. Mall Plant Caretaker: [facility] Transcribe Date/Time: Feb 16 2023 1:51P Dictated by : DOMINICK KELSEY MD This examination was interpreted and the report reviewed and electronically signed by: DOMINICK KELSEY MD on Feb 16 2023 1:53PM [facility] XR HAND 3V PA/LAT/OBL LTon 0 02-16-2023 XR HAND 3V PA/LAT/OBL LT * * *Final Report* * * DATE OF EXAM: Feb 16 2023 1:49PM WOX 5345 - XR HAND 3V PA/LAT/OBL LT / PROCEDURE REASON: Fall, initial encounter * * * * Physician Interpretation * * * * Examination: XR WRIST 3V PA/LAT/OBL LT, XR HAND 3V PA/LAT/OBL LT History: Fall, initial encounter Technique: XR WRIST 3V PA/LAT/OBL LT, XR HAND 3V PA/LAT/OBL LT Comparison: None RESULT: 3 views of the left hand and 3 views of the left wrist show no fracture or focal bony abnormality. Normal mineralization and alignment. Joint spaces are maintained IMPRESSION: NO EVIDENCE OF ACUTE FRACTURE Mall Plant Caretaker: [place] Transcribe Date/Time: Feb 16 2023 1:53P Dictated by : ZANDRA KWAN MD This examination was interpreted and the report reviewed and electronically signed by: ZANDRA KWAN MD on Feb 16 2023 1:56PM EST [id number] Normal [facility] XR Hand - left PA and Latera l and Obliqueon 02-16-2023 * * *Final Report* * * DATE OF EXAM: Feb 16 2023 1:49PM WOX 5345 - XR HAND 3V PA/LAT/OBL LT / PROCEDURE REASON: Fall, initial encounter * * * * Physician Interpretation * * * * Examination: XR WRIST 3V PA/LAT/OBL LT, XR HAND 3V PA/LAT/OBL LT History: Fall, initial encounter Technique: XR WRIST 3V PA/LAT/OBL LT, XR HAND 3V PA/LAT/OBL LT Comparison: None RESULT: 3 views of the left hand and 3 views of the left wrist show no fracture or focal bony abnormality. Normal mineralization and alignment. Joint spaces are maintained DIVISION OF RADIOLOGY Provider, [facility] - 02/16/2023 * * *Final Report* * * DATE OF EXAM: Feb 16 2023 1:49PM WOX 5345 - XR HAND 3V PA/LAT/OBL LT / PROCEDURE REASON: Fall, initial encounter * * * * Physician Interpretation * * * * Examination: XR WRIST 3V PA/LAT/OBL LT, XR HAND 3V PA/LAT/OBL LT History: Fall, initial encounter Technique: XR WRIST 3V PA/LAT/OBL LT, XR HAND 3V PA/LAT/OBL LT Comparison: None RESULT: 3 views of the left hand and 3 views of the left wrist show no fracture or focal bony abnormality. Normal mineralization and alignment. Joint spaces are maintained IMPRESSION IMPRESSION: NO EVIDENCE OF ACUTE FRACTURE Mall Plant Caretaker: [facility] Transcribe Date/Time: Feb 16 2023 1:53P Dictated by : ZANDRA KWAN MD This examination was interpreted and the report reviewed and electronically signed by: ZANDRA KWAN MD on Feb 16 2023 1:56PM EST [facility] XR WRIST 3V PA/LAT/OBL LTon 02-16-2023 XR WRIST 3V PA/LAT/OBL LT * * *Final Report* * * DATE OF EXAM: Feb 16 2023 1:49PM WOX 5270 - XR WRIST 3V PA/LAT/OBL LT / PROCEDURE REASON: Fall, initial encounter * * * * Physician Interpretation * * * * Examination: XR WRIST 3V PA/LAT/OBL LT, XR HAND 3V PA/LAT/OBL LT History: Fall, initial encounter Technique: XR WRIST 3V PA/LAT/OBL LT, XR HAND 3V PA/LAT/OBL LT Comparison: None RESULT: 3 views of the left hand and 3 views of the left wrist show no fracture or focal bony abnormality. Normal mineralization and alignment. Joint spaces are maintained IMPRESSION: NO EVIDENCE OF ACUTE FRACTURE Mall Plant Caretaker: [facility] Transcribe Date/Time: Feb 16 2023 1:53P Dictated by : ZANDRA KWAN MD This examination was interpreted and the report reviewed and electronically signed by: ZANDRA KWAN MD on Feb 16 2023 1:56PM EST [id number] Normal [facility] XR Wrist - left PA and Later al and Obliqueon 02-16-2023 * * *Final Report* * * DATE OF EXAM: Feb 16 2023 1:49PM WOX 5270 - XR WRIST 3V PA/LAT/OBL LT / PROCEDURE REASON: Fall, initial encounter * * * * Physician Interpretation * * * * Examination: XR WRIST 3V PA/LAT/OBL LT, XR HAND 3V PA/LAT/OBL LT History: Fall, initial encounter Technique: XR WRIST 3V PA/LAT/OBL LT, XR HAND 3V PA/LAT/OBL LT Comparison: None RESULT: 3 views of the left hand and 3 views of the left wrist show no fracture or focal bony abnormality. Normal mineralization and alignment. Joint spaces are maintained DIVISION OF RADIOLOGY Provider, [facility] - 02/16/2023 * * *Final Report* * * DATE OF EXAM: Feb 16 2023 1:49PM WOX 5270 - XR WRIST 3V PA/LAT/OBL LT / PROCEDURE REASON: Fall, initial encounter * * * * Physician Interpretation * * * * Examination: XR WRIST 3V PA/LAT/OBL LT, XR HAND 3V PA/LAT/OBL LT History: Fall, initial encounter Technique: XR WRIST 3V PA/LAT/OBL LT, XR HAND 3V PA/LAT/OBL LT Comparison: None RESULT: 3 views of the left hand and 3 views of the left wrist show no fracture or focal bony abnormality. Normal mineralization and alignment. Joint spaces are maintained IMPRESSION IMPRESSION: NO EVIDENCE OF ACUTE FRACTURE Mall Plant Caretaker: [place] Transcribe Date/Time: Feb 16 2023 1:53P Dictated by : ZANDRA KWAN MD This examination was interpreted and the report reviewed and electronically signed by: ZADNRA KWAN MD on Feb 16 2023 1:56PM [facility] US ABD RIGHT UPPER QUADRANTo n 05-18-2022 US ABD RIGHT UPPER QUADRANT * * *Final Report* * * DATE OF EXAM: May 18 2022 4:39PM WRU 1032 - US ABD RIGHT UPPER QUADRANT / PROCEDURE REASON: RUQ abdominal pain * * * * Physician Interpretation * * * * EXAM TITLE: US ABD RIGHT UPPER QUADRANT, US ABD SPLEEN -NB HISTORY: Right upper quadrant abdominal pain. TECHNIQUE: Sonography of the right upper quadrant and spleen was performed. Images were obtained and stored in a permanent archive. MQ: URUQ_1 COMPARISON: None. RESULT: Pancreas: Normal sonographic appearance in the visualized portions. Portions obscured: tail Liver: Echotexture: Homogeneous Echogenicity: Normal Surface contour: Smooth Lesions: None. Biliary: No intrahepatic biliary duct dilation. CBD: 3 mm in diameter. Gallbladder: Normal caliber -Contents: No cholelithiasis -Wall: 1 mm in thickness -Other: Negative sonographic Kat's sign. Kidneys: Within normal limits, measuring 11 cm in length of the right kidney and 12.2 cm in length of the left kidney. Spleen: No splenomegaly or mass lesion identified. The spleen measures 9.1 x 4.7 x 8.6 cm. IMPRESSION: Unremarkable sonographic exam of the upper abdomen. Mall Plant Caretaker: [facility] Transcribe Date/Time: May 18 2022 4:53P Dictated by : DOMINICK KELSEY MD This examination was interpreted and the report reviewed and electronically signed by: DOMINICK KELSEY MD on May 18 2022 4:55PM EST [id number] Normal [facility] US ABD SPLEEN -NBon 05-18-20 US ABD SPLEEN -NB * * *Final Report* * * DATE OF EXAM: May 18 2022 4:39PM [facility] 1232 - US ABD SPLEEN -NB / PROCEDURE REASON: RUQ abdominal pain * * * * Physician Interpretation * * * * EXAM TITLE: US ABD RIGHT UPPER QUADRANT, US ABD SPLEEN -NB HISTORY: Right upper quadrant abdominal pain. TECHNIQUE: Sonography of the right upper quadrant and spleen was performed. Images were obtained and stored in a permanent archive. MQ: URUQ_1 COMPARISON: None. RESULT: Pancreas: Normal sonographic appearance in the visualized portions. Portions obscured: tail Liver: Echotexture: Homogeneous Echogenicity: Normal Surface contour: Smooth Lesions: None. Biliary: No intrahepatic biliary duct dilation. CBD: 3 mm in diameter. Gallbladder: Normal caliber -Contents: No cholelithiasis -Wall: 1 mm in thickness -Other: Negative sonographic Kat's sign. Kidneys: Within normal limits, measuring 11 cm in length of the right kidney and 12.2 cm in length of the left kidney. Spleen: No splenomegaly or mass lesion identified. The spleen measures 9.1 x 4.7 x 8.6 cm. IMPRESSION: Unremarkable sonographic exam of the upper abdomen. Mall Plant Caretaker: [facility] Transcribe Date/Time: May 18 2022 4:53P Dictated by : DOMINICK KELSEY MD This examination was interpreted and the report reviewed and electronically signed by: DOMINICK KELSEY MD on May 18 2022 4:55PM EST [id number] Normal [facility] RAM[facility] RUGG[facility]ERO ([id number]) 1990 M Date Time Provider Department 05/11/22 Aristides BLACK During your visit today, we recorded the following information about you: Aristides Black PA-C 05/11/2022 6:09 PM Signed Called regarding patient questions, left message. See myc message. ThanksJohnny PA-C Allergies As of Date: 05/11/2022 Noted Allergy Reaction PENICILLIN 01/18/2019 4 - Hives Date Reviewed: 05/07/2022 Reviewed by: Leslie Venegas Ma - Fully Assessed Reason for Visit: Results [95] Prescriptions as of 05/11/2022 - gabapentin (NEURONTIN) 300 mg capsule Take 1 capsule by mouth three times daily for 90 days. - pantoprazole DR (PROTONIX) 20 mg tablet Take 1 tablet by mouth daily before breakfast. Take on empty stomach, 1/2 hr before meal. 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] 01/01/2022 Encounter Status:Closed by Aristides BLACK on 05/11/22 [facility]20[facility]FAMFrank & OakWS[facility] RAMOS RUGGIERO ([id number]) 1990 M Date Time Provider Department 05/08/22 Aristides BLACK During your visit today, we recorded the following information about you: Aristides Black PA-C 05/08/2022 6:46 PM [facility] week Telephone on 05/08/22 ALK PHOS ISOENZYM BL HEPATIC FUNCTION PNL Johnny Black PA-C Allergies As of Date: 05/08/2022 Noted Allergy Reaction PENICILLIN 01/18/2019 4 - Hives Date Reviewed: 05/07/2022 Reviewed by: Leslie Venegas Ma - Fully Assessed Reason for Visit: Orders [681] Primary Visit Diagnosis:RUQ abdominal pain [R10.11] Other Visit Diagnosis:Elevated alkaline phosphatase level [R74.8] Order(s):ALK PHOS ISOENZYM BL [SQALKISO] Order #: [id number] FUTURE HEPATIC FUNCTION PNL [SQHFP] Order #: [id number] FUTURE Prescriptions as of 05/08/2022 - gabapentin (NEURONTIN) 300 mg capsule Take 1 capsule by mouth three times daily for 90 days. - pantoprazole DR (PROTONIX) 20 mg tablet Take 1 tablet by mouth daily before breakfast. Take on empty stomach, 1/2 hr before meal. 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 CBC W Auto Differential pane l (Bld)on 05-07-2022 Basophils (Bld) [#/Vol] 0.08 10*3/uL Normal <0.[address] [facility] Comment on above: Order Comment: Speci men Type: BLOOD SPECIMENOrdering Facility: [facility] Address: [address] [place] [address] Performed By: #### 5 7021-8 ####[facility] LABCLIA [id number] [place] [address] [place] Basophils/100 WBC (Bld) 0.7 % Normal [facility] Comment on above: Order Comment: Speci men Type: BLOOD SPECIMENOrdering Facility: [facility] Address: [address] [address] Performed By: #### 5 7021-8 ####[facility] LABCLIA [id number] [place] [id number] [place] Differential cell count method Nom (Bld) Auto Normal [facility] Comment on above: Order Comment: Speci men Type: BLOOD SPECIMENOrdering Facility: [facility] Address: [address] [place] [address] Performed By: #### 5 7021-8 ####[facility] LABCLIA [id number] [place] [address] [place] Eosinophils (Bld) [#/Vol] 0.21 10*3/uL Normal <0.[address] [facility] Comment on above: Order Comment: Speci men Type: BLOOD SPECIMENOrdering Facility: [facility] Address: [address] [place] [address] Performed By: #### 5 7021-8 ####[facility] LABCLIA [id number] [address] [place] Eosinophils/100 WBC (Bld) 1.9 % Normal [facility] Comment on above: Order Comment: Speci men Type: BLOOD SPECIMENOrdering Facility: [facility] Address: [address] [place], [place] [address] Performed By: #### 5 7021-8 ####[facility] LABCLIA [id number] [place] [address] [place] Erythrocyte distribution width (RBC) [Ratio] 13.1 % Normal 11.5-15.[address] [facility] Comment on above: Order Comment: Speci men Type: BLOOD SPECIMENOrdering Facility: [facility] Address: [address] [place], [place] [address] Performed By: #### 5 7021-8 ####[facility] LABCLIA [id number] [place] [address] [place] Hematocrit (Bld) [Volume fraction] 41.8 % Normal 39.0-51.[address] [facility] Comment on above: Order Comment: Speci men Type: BLOOD SPECIMENOrdering Facility: [facility] Address: [address] [place], [place] [address] Performed By: #### 5 7021-8 ####[facility] LABCLIA [id number] [place] [address] [place] Hemoglobin (Bld) [Mass/Vol] 14.2 g/dL Normal 13.0-17.[address] [facility] Comment on above: Order Comment: Speci men Type: BLOOD SPECIMENOrdering Facility: [facility] Address: [address] [place] [address] Performed By: #### 5 7021-8 ####[facility] LABIA [id number] [address] [place] IMMATURE GRAN % 1.4 % Normal [facility] Comment on above: Order Comment: Speci men Type: BLOOD SPECIMENOrdering Facility: [facility] Address: [address] [place], [place] [address] Performed By: #### 5 7021-8 ####[facility] LABIA [id number] [place] [address] [place] IMMATURE GRAN ABS 0.16 k/uL High <0.10 [facility] Comment on above: Order Comment: Speci men Type: BLOOD SPECIMENOrdering Facility: [facility] Address: [address] [place], [place] [address] Performed By: #### 5 7021-8 ####[facility] LABIA [id number] [place] [address] [place] Lymphocytes (Bld) [#/Vol] 2.29 10*3/uL Normal 1.00-4.[address] [facility] Comment on above: Order Comment: Speci men Type: BLOOD SPECIMENOrdering Facility: [facility] Address: [address] [place], [place] [address] Performed By: #### 5 7021-8 ####[facility] LABCLIA [id number] [place] [address] [place] Lymphocytes/100 WBC (Bld) 20.7 % Normal [facility] Comment on above: Order Comment: Speci men Type: BLOOD SPECIMENOrdering Facility: [facility] Address: [address] [place], [place] [address] Performed By: #### 5 7021-8 ####[facility] LABIA [id number] [address] STATES [facility] MCH (RBC) [Entitic mass] 33.5 pg Normal 26.0-34.[address] [facility] Comment on above: Order Comment: Speci men Type: BLOOD SPECIMENOrdering Facility: [facility] Address: [address] [place] [address] Performed By: #### 5 7021-8 ####[facility] LABIA [id number] [place] [address] [place] MCHC (RBC) [Mass/Vol] 34.0 g/dL Normal 30.5-36.0 [facility] Comment on above: Order Comment: Speci men Type: BLOOD SPECIMENOrdering Facility: [facility] Address: [address] [place], [place] [address] Performed By: #### 5 7021-8 ####[facility] LABIA [id number] [place] [address] [place] MCV (RBC) [Entitic vol] 98.6 fL Normal 80.0-100.[address] [facility] Comment on above: Order Comment: Speci men Type: BLOOD SPECIMENOrdering Facility: [facility] Address: [address] [place], [place] [address] Performed By: #### 5 7021-8 ####[facility] LABCLIA [id number] [place] [address] [place] Monocytes (Bld) [#/Vol] 1.02 10*3/uL High <0.[address] [facility] Comment on above: Order Comment: Speci men Type: BLOOD SPECIMENOrdering Facility: [facility] Address: [address] [place] [address] Performed By: #### 5 7021-8 ####[facility] LABCLIA [id number] [place] [address] [place] Monocytes/100 WBC (Bld) 9.2 % Normal [facility] Comment on above: Order Comment: Speci men Type: BLOOD SPECIMENOrdering Facility: [facility] Address: [address] [place], [place] [address] Performed By: #### 5 7021-8 ####[facility] LABIA [id number] [place] [address] [place] Neutrophils (Bld) [#/Vol] 7.29 10*3/uL Normal 1.45-7.[address] [facility] Comment on above: Order Comment: Speci men Type: BLOOD SPECIMENOrdering Facility: [facility] Address: [address] [place], [place] [address] Performed By: #### 5 7021-8 ####[facility] LABCLIA [id number] [place] [address] [place] Neutrophils/100 WBC (Bld) 66.1 % Normal [facility] Comment on above: Order Comment: Speci men Type: BLOOD SPECIMENOrdering Facility: [facility] Address: [address] [place] [address] Performed By: #### 5 7021-8 ####[facility] LABCLIA [id number] [place] [address] [place] Nucleated RBC (Bld) [#/Vol] 10*3/uL Normal <0.[address] [facility] Comment on above: Order Comment: Speci men Type: BLOOD SPECIMENOrdering Facility: [facility] Address: [address] [place] [address] Performed By: #### 5 7021-8 ####[facility] LABIA [id number] [place] [address] [place] Nucleated RBC/100 WBC (Bld) [Ratio] 0.0 /100 WBC Normal [facility] Comment on above: Order Comment: Speci men Type: BLOOD SPECIMENOrdering Facility: [facility] Address: [address] [place], [place] [address] Performed By: #### 5 7021-8 ####[facility] LABIA [id number] [place] [address] [place] Platelet mean volume (Bld) [Entitic vol] 10.5 fL Normal 9.0-12.[address] [facility] Comment on above: Order Comment: Speci men Type: BLOOD SPECIMENOrdering Facility: [facility] Address: [address] [place] [address] Performed By: #### 5 7021-8 ####[facility] LABIA [id number] [place] [address] [place] Platelets (Bld) [#/Vol] 276 10*3/uL Normal 150-[address] [facility] Comment on above: Order Comment: Speci men Type: BLOOD SPECIMENOrdering Facility: [facility] Address: [address] [place], [place] [address] Performed By: #### 5 7021-8 ####[facility] LABIA [id number] [place] [address] [place] RBC (Bld) [#/Vol] 4.24 10*6/uL Normal 4.20-6.00 [facility] Comment on above: Order Comment: Speci men Type: BLOOD SPECIMENOrdering Facility: [facility] Address: [address] [place], [place] [address] Performed By: #### 5 7021-8 ####[facility] LABIA [id number] [address] [place] WBC (Bld) [#/Vol] 11.05 10*3/uL High 3.70-11.00 [facility] Comment on above: Order Comment: Speci men Type: BLOOD SPECIMENOrdering Facility: [facility] Address: [address] [place] [address] Performed By: #### 5 7021-8 ####[facility] LABCLIA [id number] [facility] [address] [facility] CNOVon 05-07-2022 CNOV Office Visit (FAMPWS ) RAMOS RUGGIERO ([id number]) 1990 Aristides Date Time Provider Department 05/07/22 10:00 AM [facility] visit today, we recorded the following information about you: Temperature Pulse Respiration Blood pressure 98 degrees 71/minute 16/minute 118/66 Weight 65.3 kg M Jeyson Black PA-C 05/07/2022 11:04 AM Signed 32 year old male with c/o pain in right upper stomach indicating lateral upper right. Annoying , gnawing, dull pain. Comes and goes, 5-10 minutes and a few hours later recurrent. No heartburn or acid reflux. No nausea or vomiting. Light yellow colored stool, no change in pattern otherwise Hx right inguinal hernia, no other surgeries. Rare use NSAIDS. ETOH 2 beers a day, 12 pk on Wednesday PGF cirrhosis. No Fh IBD or colorectal cancer Doing well following cervical laminectomy. Only pain at surgical site: very happy with results. This was first week back to work. HISTORIES FAMILY HISTORY Problem Relation Age of Onset Emphysema Father Hypertension Father other (lung mass) Father unsure if it is cancer Heart Maternal Grandmother Osteoporosis Maternal Grandmother Heart Failure Maternal Grandfather Emphysema Paternal Grandmother other (cirrhosis) Paternal Grandfather Hypertension Mother PAST MEDICAL HISTORY Diagnosis Date NEGATIVE MEDICAL HISTORY PAST SURGICAL HISTORY Procedure Laterality Date EXTRACTION ERUPTED TOOTH/EXR 09/2019 RPR 1ST INGUN HRNA AGE 5 YRS/> REDUCIBLE 11/14/2019 Hernia repair, inguinal Social History Tobacco Use Smoking status: Every Day Packs/day: 0.50 Years: 11.00 Pack years: 5.50 Types: Cigarettes Start date: 11/02/2008 Smokeless tobacco: Never Vaping Use Vaping Use: Never used Substance Use Topics Alcohol use: Yes Alcohol/week: 15.0 - 30.0 standard drinks Types: 6 - 12 Cans of Beer (12oz) per week Comment: every weekend Drug use: Never ACTIVE PROBLEM LIST Cervical Disc Disorder At C6-C7 Level With Radiculopathy Foraminal Stenosis of Cervical Region Current Outpatient Medications Medication Sig Dispense Refill gabapentin (NEURONTIN) 300 mg capsule Take 1 capsule by mouth three times daily for 90 days. [address] (PROTONIX) 20 mg tablet Take 1 tablet by mouth daily before breakfast. Take on empty stomach, 1/2 hr before meal. (Patient not taking: Reported on 05/07/2022) 30 tablet 1 No current facility-administered medications for this visit. HEPATITIS B(1 of 3 - 3-dose series) Never done EXAM: BP 118/66 Pulse 71 Temp 36.7 ?C (98 ?F) (Tympanic) Resp 16 Wt 65.3 kg (144 lb) SpO2 98% BMI 21.90 kg/m? Pleasant well appearing young man in no acute distress. Alert and oriented all spheres. Normal affect and cognition. Speech normal. No deficits to learning or comprehension. Skin warm, dry, pink to lips and nailbeds. Normal turgor. Respirations regular and unlabored. HEENT: NCAT. No scleral icterus or conjunctival injection. TM's clear. Nose and oropharynx free from injection or lesion. Oral membranes moist and pink. No cervical lymph nodes. Thyroid non-tender, no masses, or enlargement. Carotids pulses 2+/4+ without bruits. Chest is normal shape. Lungs are clear to all oliva with good air exchange through out. HRRR without murmur or gallop. No lifts, heaves, or rubs. Abdomen: active bowel sounds throughout, soft, nontender, no masses or organomegaly. No CVAT. No inguinal nodes or pulsatile masses. Extrem: no clubbing or cyanosis. Edema: none. Extremities are warm and pink with prompt capillary refill. ASSESSMENT/PLAN: 1. RUQ abdominal pain - ICD9: 789.01, ICD10: R10.11 Cut ETOH - CBC + DIFF - COMP METABOLIC PANEL - LIPASE BLD - US ABD RT UPPER QUADRANT Soft,bland diet, Cut back on ETOH- discussed risks of more than 7-10 per week. F/u after results LORETTA Zee PA-C 05/07/2022 10:36 AM Signed Try to cut back on alcohol to half at least. Soft , bland diet with avoidance of fatty foods particularly. If any severe pain, vomiting, fever: go to ER Referring Provider: SELF [200] Allergies As of Date: 05/07/2022 Noted Allergy Reaction PENICILLIN 01/18/2019 4 - Hives Date Reviewed: 05/07/2022 Reviewed by: Leslie Venegas Ma - Fully Assessed Reason for Visit: Abdominal Pain [1] Cmt: RUQ, 1 month Primary Visit Diagnosis:RUQ abdominal pain [R10.11] Order(s):CBC + DIFF [SQCBCDIF] Order #: [id number] FUTURE COMP METABOLIC PANEL [SQCMP] Order #: [id number] FUTURE LIPASE BLD [SQLIPA] Order #: [id number] FUTURE US ABD RT UPPER QUADRANT [3060930] Order #: [id number] FUTURE Prescriptions as of 05/07/2022 - gabapentin (NEURONTIN) 300 mg capsule Take 1 capsule by mouth three times daily for 90 days. - pantoprazole DR (PROTONIX) 20 mg tablet Take 1 tablet by mouth daily before breakfast. Take on empty (more content not included)... Normal [facility] Comprehensive metabolic 2000 panelon 05-07-2022 Albumin [Mass/Vol] 4.8 g/dL Normal 3.9-4.9 [facility] Comment on above: Order Comment: Speci men Type: BLOOD SPECIMENOrdering Facility: [facility] Address: [address] [place] [place] [id number] Performed By: #### 2 4323-8, 3040-3 ####[facility] LABCLIA [id number] [place] [address] [place] ALP [Catalytic activity/Vol] 117 U/L High 38-[address] [facility] Comment on above: Order Comment: Speci men Type: BLOOD SPECIMENOrdering Facility: [facility] Address: [address] [place], [place] [address] Performed By: #### 2 4323-8, 3040-3 ####[facility] LABCLIA [id number] [place] [address] [place] ALT [Catalytic activity/Vol] 30 U/L Normal 10-[address] [facility] Comment on above: Order Comment: Speci men Type: BLOOD SPECIMENOrdering Facility: [facility] Address: [address] [place] [address] Performed By: #### 2 4323-8, 0-3 ####[facility] LABCLIA [id number] [place] [address] [place] Anion gap [Moles/Vol] 14 mmol/L Normal 9-18 [facility] Comment on above: Order Comment: Speci men Type: BLOOD SPECIMENOrdering Facility: [facility] Address: [address] [place], [place] [address] Performed By: #### 2 4323-8, 3040-3 ####[facility] LABCLIA [id number] [place] [address] [place] AST [Catalytic activity/Vol] 34 U/L Normal 14-[address] [facility] Comment on above: Order Comment: Speci men Type: BLOOD SPECIMENOrdering Facility: [facility] Address: [address] [place], [place] [address] Performed By: #### 2 4323-8, 3040-3 ####[facility] LABCLIA [id number] [place] [id number] [place] Bilirubin [Mass/Vol] 0.5 mg/dL Normal 0.2-1.3 [facility] Comment on above: Order Comment: Speci men Type: BLOOD SPECIMENOrdering Facility: [facility] Address: [address] [place] [address] Performed By: #### 2 4323-8, 3039-3 ####[facility] LABCLIA [id number] [place] [address] [place] Calcium [Mass/Vol] 9.9 mg/dL Normal 8.5-10.2 [facility] Comment on above: Order Comment: Speci men Type: BLOOD SPECIMENOrdering Facility: [facility] Address: [address] [place] [address] Performed By: #### 2 4323-8, 3039-3 ####[facility] LABCLIA [id number] [place] [address] [place] Chloride [Moles/Vol] 103 mmol/L Normal 97-105 [facility] Comment on above: Order Comment: Speci men Type: BLOOD SPECIMENOrdering Facility: [facility] Address: [address] [place], [place] [address] Performed By: #### 2 4323-8, 3039-3 ####[facility] LABCLIA [id number] [place] [address] [place] CO2 [Moles/Vol] 22 mmol/L Normal 22-[address] [facility] Comment on above: Order Comment: Speci men Type: BLOOD SPECIMENOrdering Facility: [facility] Address: [address] [place] [id number] Performed By: #### 2 4323-8, 3039-3 ####[facility] LABCLIA [id number] [place] [address] [place] Creatinine [Mass/Vol] 0.81 mg/dL Normal 0.73-1.22 [facility] Comment on above: Order Comment: Speci men Type: BLOOD SPECIMENOrdering Facility: [facility] Address: [address] [place] [address] Performed By: #### 2 4323-8, 3040-3 ####[facility] LABIA [id number] [place] [address] [place] ESTIMATED GLOMERULAR FILTRATION RATE 121 mL/min/1.73m??? Normal >=[address] [facility] Comment on above: Order Comment: Luke singletary Type: BLOOD SPECIMENOrdering Facility: [facility] Address: [address] [place] [address] Result Comment: Temitope mated Glomerular Filtration Rate (eGFR) is calculated using the 2020 CKD-EPI creatinine equation. This equation utilizes serum creatinine, sex, and age as parameters. The creatinine assay has traceable calibration to isotope dilution-mass spectrometry. Refer to KDIGO guidelines for clinical interpretation. In patients with unstable renal function, e.g. those with acute kidney injury, the eGFR may not accurately reflect actual GFR. Performed By: #### 2 4323-8, 3039-3 ####[facility] LABIA [id number] [place] [address] [place] Glucose [Mass/Vol] 82 mg/dL Normal 74-99 [facility] Comment on above: Order Comment: Luke singletary Type: BLOOD SPECIMENOrdering Facility: [facility] Address: [address] [place] [address] Result Comment: The [place] Diabetes Association (ADA) provides guidance for cutoff values for fasting glucose and random glucose. The ADA defines fasting as no caloric intake for at least 8 hours. Fasting plasma glucose results between 100 to 125 mg/dL indicate increased risk for diabetes (prediabetes). Fasting plasma glucose results greater than or equal to 126 mg/dL meet the criteria for diagnosis of diabetes. In the absence of unequivocal hyperglycemia, results should be confirmed by repeat testing. In a patient with classic symptoms of hyperglycemia or hyperglycemic crisis, random plasma glucose results greater than or equal to 200 mg/dL meet the criteria for diagnosis of diabetes. Reference: Standards of Medical Care in Diabetes 2016, [place] [employer]. Diabetes Care. 2016.39(Suppl 1). Performed By: #### 2 432-8, 3039-3 ####[facility] LABCLIA [id number] [place] [id number] [place] Potassium [Moles/Vol] 4.5 mmol/L Normal 3.7-5.1 [facility] Comment on above: Order Comment: Speci men Type: BLOOD SPECIMENOrdering Facility: [facility] Address: [address] [place] [address] Performed By: #### 2 8, 3039-3 ####[facility] LABCLIA [id number] [place] [address] [place] Protein [Mass/Vol] 6.9 g/dL Normal 6.3-8.0 [facility] Comment on above: Order Comment: Speci men Type: BLOOD SPECIMENOrdering Facility: [facility] Address: [address] [place], [place] [address] Performed By: #### 2 4323-04, 3 ####[facility] LABIA [id number] [place] [address] [place] Sodium [Moles/Vol] 139 mmol/L Normal 136-144 [facility] Comment on above: Order Comment: Speci men Type: BLOOD SPECIMENOrdering Facility: [facility] Address: [address] [place] [address] Performed By: #### 2 4323-04, 3 ####[facility] LABCLIA [id number] [place] [id number] [place] Urea nitrogen [Mass/Vol] 11 mg/dL Normal 9-[address] [facility] Comment on above: Order Comment: Speci men Type: BLOOD SPECIMENOrdering Facility: [facility] Address: [address] [place] [address] Performed By: #### 2 4328, 3039-3 ####[facility] LABCLIA [id number] [place] [address] [place] Lipase SerPl-cCncon 05-07-20 22 Lipase [Catalytic activity/Vol] 23 U/L Normal 16-[address] [facility] Comment on above: Order Comment: Speci men Type: BLOOD SPECIMENOrdering Facility: [facility] Address: [address] [place] [address] Performed By: #### 2 4323-8, 3040-3 ####[facility] LABCLIA [id number] [place] [address] [place] Cerv Spine 2 or 3 Viewson Cerv Spine 2 or 3 Views [facility] [address] [facility] [place] [place] [address] Cerv Spine 2 or 3 Views MR#: [id number] Acct: [id number] Name: RAMOS RUGGIERO Rep #: [id number] : 1990 M 32 From: Kemar narvaez MD PCP: ALIYA Zee Status: DEP AMB Study: Cerv Spine 2 or 3 Views Date of Exam: 04/01/22 Exam# [id number] Ordering Dr: Oswaldo Snyder DO STUDY: X-RAY - CERVICAL SPINE REASON FOR EXAM: Male, 32 years old. Pain TECHNIQUE: 2 view(s) of the cervical spine were obtained. COMPARISON: Comparison is made with prior study 12/18/2021. FINDINGS: Normal anterior atlantoaxial articulation. Normal odontoid process. There is straightening of the normal cervical lordosis. The patient is status post anterior fusion and prosthetic disc placement at the C6-C7 level. Normal visualized intervertebral neuroforamina. The soft tissue structures are unremarkable. RAD/Cerv Spine 2 or 3 Views IMPRESSION: Status post anterior fusion at the C6-C7 level with prosthetic disc placement. Electronically Signed: Kemar Dunham MD at 15:43 EDT Reading Location ID and State: [facility] / [place] , Service support , CC: ALIYA Black; Dr. 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 Oswaldo maurice DO Age/Sex: 32/M Location: [facility] [place] Status: Signed Intake Vital Signs 02/17/22 13:08 Height 5 ft 8 in Intake Visit Reasons: CERVICAL Allergies Penicillins Allergy (Verified 02/17/22 06:03) Hives horseradish Adverse Reaction (Verified 02/17/22 06:03) PT UNSURE OF REACTION tramadol [From Ultram] Adverse Reaction (Verified 02/18/22 11:30) Swelling PFSH Medical History Alcohol use Anxiety Arthritis Excessive bleeding Heartburn History of steroid therapy Injury of head and neck Neck ache Smoker Surgical History (Updated 02/27/22 @ 11:[address] Oswaldo Snyder DO) Hx of inguinal hernia surgery Hx of wisdom tooth extraction Social History Smoking Status: Current every day smoker tobacco type: cigarettes HPI CERVICAL Details: Parts of this documentation were recorded by a scribe, this documentation accurately reflects the service provided and the decisions made by me, Dr. Oswaldo Snyder DO 04/01/22 1041. RAMOS RUGGIERO is a 32 year old M here today for s/p anterior cervical fusion C6-7 dos 02/17/22. Patient notes that he is doing well. He has no complaints and is happy with the surgery procedure. Patient notes that he has no radiating pain. Ramos is doing remarkably well. His swallowing now is just about normal. His voice is clear. His left arm pain is completely gone. His tricep strength has increased dramatically I cannot even begin to overcome it as I used to before surgery. Incision is healing well. We had a discussion regarding activities at this point I will let him start using his compound bow of about 60 pounds to start practicing getting ready for . He starts his new job on 17 May. He will be able to do that I will see him just before that in about 6 weeks and x-rayed at that time. The x- ray taken today demonstrates good position of the plate the screws and the cage. I will see him again in 6 weeks. Coding Level of Care Code Global Post Op Diagnoses S/P cervical spinal fusion Z98.1 Time Spent (min) 20 Assessment and Plan Assessment and Plan (1) S/P cervical spinal fusion: Status: Acute Orders: Orders Cerv Spine 2 or 3 Views Today Z98.1 - Arthrodesis status 04/01/22 1114 Date Oswaldo Snyder DO [facility] Signature: Date (if applicable) CC: ALIYA Black Normal [facility] Orthopedic Visit Reporton Orthopedic Visit Report [facility] [address] [place] [address] OFFICE VISIT Date of Service: 03/02/22 MR#: [id number] Acct: [id number] Name: RAMOS RUGGIERO Rep #: [id number] : 1990 Provider: Dr. Oswaldo maurice DO Age/Sex: 31/M Location: [facility] [place] Status: Signed Intake Intake Visit Reasons: cervical Allergies Penicillins Allergy (Verified 02/17/22 06:03) Hives horseradish Adverse Reaction (Verified 02/17/22 06:03) PT UNSURE OF REACTION tramadol [From Ultram] Adverse Reaction (Verified 02/18/22 11:30) Swelling Medications naproxen 500 mg PO BID 02/09/22 [History Confirmed 03/02/22] hydrocodone-acetaminop hen 5-325mg 5mg-325mg 1 tab PO Q8H PRN 10 Days #30 tab 02/27/22 [Rx Confirmed 03/02/22] PFSH Medical History Alcohol use Anxiety Arthritis Excessive bleeding Heartburn History of steroid therapy Injury of head and neck Neck ache Smoker Surgical History (Updated 02/27/22 @ 11:[address] Oswlado Snyder DO) Hx of inguinal hernia surgery Hx of wisdom tooth extraction Social History Smoking Status: Current every day smoker tobacco type: cigarettes HPI cervical Details: Parts of this documentation were recorded by a scribe, this documentation accurately reflects the service provided and the decisions made by me, Dr. Oswaldo Snyder DO 03/02/22 0918. RAMOS RUGGIERO is a 31 year old M here today for 2 week post op from anterior cervical fusion C6-7. He denies any arm pain at this time. Denies numbness, tingling or other associated symptoms.He does have neck stiffness and states that his neck feels weak after wearing the cervical collar for 1 week post op. Denies any other concern at this time. Ramos is doing great about 2 weeks postop. His left arm pain is completely resolved. He states that his neck is just a tiny bit stiff and that is about it his only complaint is that he still has little trouble swallowing but that is getting better. His incision is dry and healing well. His tricep strength is increased. In addition of that he was offered a first shift job starting on 17 May. It will also provide a $10 an hour pay raise. He is extremely happy about that. I think he will be able to do that job. I will see him again in 4 weeks I would like an AP lateral cervical x-ray at that time. Coding Level of Care Code Global Post Op Diagnoses S/P cervical spinal fusion Z98.1 Time Spent (min) 15 Assessment and Plan Assessment and Plan (1) S/P cervical spinal fusion: Status: Acute 03/02/22935 Date [facility] Signature: Date (if applicable) CC: ALIYA Black Normal [facility] Absolute lymphocyte counton 02-18-2022 Lymphocytes Auto (Unsp spec) [#/Vol] 0.86 10*3/uL 0.83-4.51 [facility] Work Phone: Basophil percentageon 2021 Basophils/100 WBC (Bld) 0.1 % 0-1 [facility] Work Phone: Bilirubin [Mass/Vol] 0.70 mg/dL 0.20-1.00 [facility] Work Phone: Comment on above: For patients on eltr ombopag therapy, use of Dimension Purcell TBIL is not recommended. Chloride [Moles/Vol] 106 mmol/L 98-107 [facility] Work Phone: Eosinophils/100 WBC (Bld) 0.0 % 0-5 [facility] Work Phone: Glucose [Mass/Vol] 147 mg/dL 74-106 [facility] Work Phone: [phone] Comment on above: Fasting Glucose resu lt greater than or equal to 126 mg/dL suggests DIABETES MELLITUS per A.D.A. criteria. Neutrophils (Bld) [#/Vol] 14.2 10*3/uL 2.0-7.7 [facility] Work Phone: [phone] Neutrophils/100 WBC (Bld) 87.7 % 47-70 [facility] Work Phone: Potassium [Moles/Vol] 4.1 mmol/L 3.5-5.1 [facility] Work Phone: Protein [Mass/Vol] 6.4 g/dL 6.4-8.2 [facility] Work Phone: Sodium [Moles/Vol] 138 mmol/L 136-145 [facility] Work Phone: WBC (Bld) [#/Vol] 16.2 10*3/uL 4.4-11.0 [facility] Work Phone: Blood erythrocytes count (nu mber/volume)on 02-18-2022 RBC (Bld) [#/Vol] 4.09 10*6/uL 4.6-6.2 [facility] Work Phone: Blood hemoglobin measurement (mass/volume)on 02-18-2022 Hemoglobin (Bld) [Mass/Vol] 13.3 g/dL 13.0-16.5 [facility] Work Phone: Blood lymphocytes/100 leukoc yteson 02-18-2022 Lymphocytes/100 WBC (Bld) 5.3 % 19-41 [facility] Work Phone: Blood monocytes/100 leukocyt eson 02-18-2022 Monocytes/100 WBC (Bld) 6.2 % 0-10 [facility] Work Phone: Blood platelet mean volumeon 02-18-2022 Platelet mean volume (Bld) [Entitic vol] 10.0 fL 6.2-12.0 [facility] Work Phone: CBC W/Diff, Automatedon - Absolute Lymph 0.86 X10 3/uL Normal 0.83-4.51 [facility] Comment on above: Performed By: #### L 500.4050, L100.0100 ####[facility] [address] [place], [address] Absolute Neut 14.2 X10 3/uL High 2.0-7.7 [facility] Comment on above: Performed By: #### L 500.4050, L100.0100 ####[facility] [address] [place], [address] Basophils/100 WBC (Bld) 0.1 % Normal 0-1 [facility] Comment on above: Performed By: #### L 500.4050, L100.0100 ####[facility] [address] [place], [address] Eosinophils/100 WBC (Bld) 0.0 % Normal 0-5 [facility] Comment on above: Performed By: #### L 500.4050, L100.0100 ####[facility] [address] [place], [address] Erythrocyte distribution width (RBC) [Ratio] 14.1 % Normal 11.6-14.6 [facility] Comment on above: Performed By: #### L 500.4050, L100.0100 ####[facility] [address] [place], [address] Hematocrit (Bld) [Volume fraction] 38.6 % Low 40-54 [facility] Comment on above: Performed By: #### L 500.4050, L100.0100 ####[facility] [address] [place], [address] Hemoglobin (Bld) [Mass/Vol] 13.3 g/dL Normal 13.0-16.5 [facility] Comment on above: Performed By: #### L 500.4050, L100.0100 ####[facility] [address] [place], [address] IG% 0.700 Normal 0.0-0.9 [facility] Comment on above: Result Comment: IG% - Immature Granulocytes (promyelocytes, myelocytes and metamyelocytes) > 1% indicates that a LEFT SHIFT is Present. Performed By: #### L 500.4050, L100.0100 ####[facility] [address] [place], [address] Lymphocytes/100 WBC (Bld) 5.3 % Low 19-41 [facility] Comment on above: Performed By: #### L 500.4050, L100.0100 ####[facility] [address] [place], [address] MCH (RBC) [Entitic mass] 32.5 pg High 27.0-32.0 [facility] Comment on above: Performed By: #### L 500.4050, L100.0100 ####[facility] [address] [place], [address] MCHC (RBC) [Mass/Vol] 34.5 g/dL Normal 32-36 [facility] Comment on above: Performed By: #### L 500.4050, L100.0100 ####[facility] [address] [place], [address] MCV (RBC) [Entitic vol] 94.4 fL High 80-94 [facility] Comment on above: Performed By: #### L 500.4050, L100.0100 ####[facility] [address] [place], [address] Monocytes/100 WBC (Bld) 6.2 % Normal 0-10 [facility] Comment on above: Performed By: #### L 500.4050, L100.0100 ####[facility] [address] [place], [address] Neutrophils/100 WBC (Bld) 87.7 % High 47-70 [facility] Comment on above: Performed By: #### L 500.4050, L100.0100 ####[facility] [address] [place], [address] Nucleated RBC (Bld) [#/Vol] 0 10*3/uL Normal 0-5 [facility] Comment on above: Performed By: #### L 500.4050, L100.0100 ####[facility] [address] [place], [address] Platelet mean volume (Bld) [Entitic vol] 10.0 fL Normal 6.2-12.0 [facility] Comment on above: Performed By: #### L 500.4050, L100.0100 ####[facility] [address] [place], [address] Platelets (Bld) [#/Vol] 230 10*3/uL Normal 150-450 [facility] Comment on above: Performed By: #### L 500.4050, L100.0100 ####[facility] [address] [place], [address] RBC (Bld) [#/Vol] 4.09 10*6/uL Low 4.6-6.2 [facility] Comment on above: Performed By: #### L 500.4050, L100.0100 ####[facility] [address] [place], [address] RDW SD 49.2 fl High 35.1-43.9 [facility] Comment on above: Performed By: #### L 500.4050, L100.0100 ####[facility] [address] [place], [address] WBC (Bld) [#/Vol] 16.2 10*3/uL High 4.4-11.0 [facility] Comment on above: Performed By: #### L 500.4050, L100.0100 ####[facility] [address] [place], [address] Comprehensive Metabolic Prof ilon 02-18-2022 Albumin [Mass/Vol] 3.4 g/dL Normal 3.2-5.0 [facility] Comment on above: Performed By: #### L 500.4050, L100.0100 ####[facility] [address] [place], [address] Albumin/Globulin [Mass ratio] 1.1 {ratio} Normal 0.9-2.4 [facility] Comment on above: Performed By: #### L 500.4050, L100.0100 ####[facility] [address] [place], [address] ALK P 92 U/L Normal 45-117 [facility] Comment on above: Performed By: #### L 500.4050, L100.0100 ####[facility] [address] [place], [address] ALT [Catalytic activity/Vol] 36 U/L Normal 16-61 [facility] Comment on above: Performed By: #### L 500.4050, L100.0100 ####[facility] [address] [place], [address] AST [Catalytic activity/Vol] 25 U/L Normal 15-37 [facility] Comment on above: Performed By: #### L 500.4050, L100.0100 ####[facility] [address] [place], [address] Bilirubin [Mass/Vol] 0.70 mg/dL Normal 0.20-1.00 [facility] Comment on above: Result Comment: For patients on eltrombopag therapy, use of Dimension Purcell TBIL is not recommended. Performed By: #### L 500.4050, L100.0100 ####[facility] [address] [place], [address] BUN/CRE 12.7 RATIO Normal 10-20 [facility] Comment on above: Performed By: #### L 500.4050, L100.0100 ####[facility] [address] [place], [address] CA,Total 8.7 mg/dL Normal 8.5-10.1 [facility] Comment on above: Performed By: #### L 500.4050, L100.0100 ####[facility] [address] [place], [address] Chloride [Moles/Vol] 106 mmol/L Normal 98-107 [facility] Comment on above: Performed By: #### L 500.4050, L100.0100 ####[facility] [address] [place], [address] CO2 [Moles/Vol] 26.0 mmol/L Normal 21.0-32.0 [facility] Comment on above: Performed By: #### L 500.4050, L100.0100 ####[facility] [address] [place], [address] Creatinine [Mass/Vol] 0.55 mg/dL Low 0.70-1.30 [facility] Comment on above: Result Comment: The validity of the calculated GFR GFRAA in patients over 70 years has not been determined. Clinical correlation is essential. Performed By: #### L 500.4050, L100.0100 ####[facility] [address] [place], [address] ECRCL 169.44 ml/min Normal [facility] Comment on above: Performed By: #### L 500.4050, L100.0100 ####[facility] [address] [place], [address] EST GFR - AA 223 mL/min Normal >60 [facility] Comment on above: Result Comment: Afri can Grenadian GFR Calc Performed By: #### L 500.4050, L100.0100 ####[facility] [address] [place], [address] GAP 6 Normal 5-15 [facility] Comment on above: Performed By: #### L 500.4050, L100.0100 ####[facility] [address] [place], [address] GFR/1.73 sq M.predicted among non-blacks MDRD (S/P/Bld) [Vol rate/Area] 184 mL/min/{1.73_m2} Normal >60 [facility] Comment on above: Result Comment: Non- GFR Calc Performed By: #### L 500.4050, L100.0100 ####[facility] [address] [place], [address] Globulin (S) [Mass/Vol] 3.0 g/dL Normal 2.2-4.2 [facility] Comment on above: Performed By: #### L 500.4050, L100.0100 ####[facility] [address] [place], [address] Glucose [Mass/Vol] 147 mg/dL High 74-106 [facility] Comment on above: Result Comment: Fast ing Glucose result greater than or equal to 126 mg/dL suggests DIABETES MELLITUS per A.D.A. criteria. Performed By: #### L 500.4050, L100.0100 ####[facility] [address] [place], [address] Potassium [Moles/Vol] 4.1 mmol/L Normal 3.5-5.1 [facility] Comment on above: Performed By: #### L 500.4050, L100.0100 ####[facility] [address] [place], [address] Sodium [Moles/Vol] 138 mmol/L Normal 136-145 [facility] Comment on above: Performed By: #### L 500.4050, L100.0100 ####[facility] [address] [place], [address] T PROT 6.4 g/dL Normal 6.4-8.2 [facility] Comment on above: Performed By: #### L 500.4050, L100.0100 ####[facility] [address] [place], [address] Urea nitrogen [Mass/Vol] 7 mg/dL Normal 7-18 [facility] Comment on above: Performed By: #### L 500.4050, L100.0100 ####[facility] [address] [place], [address] Determination of erythrocyte mean corpuscular volume (MCV)on 02-18-2022 MCV (RBC) [Entitic vol] 94.4 fL 80-94 [facility] Work Phone: Discharge Instructionon 01-26 Discharge Instruction [facility] Medical Records Department [address] [place] [address] Instructions for Home/Discharge Instructions 02/18/22 1303 MR#: [id number] Acct: [id number] Name: RAMOS RUGGIERO Rep #: [id number] : 1990 31 From: Oswaldo Snyder DO PCP: ALIYA Zee Status:ADM ANDRE Discharge Instructions Follow Up Care Test Results: Test results from this visit will be discussed in further detail at your follow-up appointment, if applicable. Discharge Plan Admission Admit Date/Time: 02/17/22 07:29 Primary Reason for Your Visit: cervical fusion Attending Provider: Oswaldo Snyder Primary Care Provider: Aristides Black Consulting Providers: Kaya Yepez Discharge Orders/Prescriptions Prescriptions: No Action cyclobenzaprine 10 mg Tablet 10 mg PO TID PRN (Reason: Pain) RF: 0 naproxen 500 mg Tablet,Delayed Release (Dr/Ec) 500 mg PO BID RF: 0 Referrals / Follow Up: Aristides Black PA [Primary Care Provider] - Disposition Disposition (needs filled in before D/C Order can be placed): Home, Self Care 02/18/22 1622 Oswaldo Snyder DO CC: ALIYA Black; Dr. Kaya Yepez MD Signed Normal [facility] Hematocrit Auto (Bld) [Volum e fraction]on 02-18-2022 Hematocrit (Bld) [Volume fraction] 38.6 % 40-54 [facility] Work Phone: Laboratory - Chemistry and C hemistry - challengeon 02-18-2022 ALP [Catalytic activity/Vol] 92 U/L 45-117 [facility] Work Phone: ALT [Catalytic activity/Vol] 36 U/L 16-61 [facility] Work Phone: CO2 [Moles/Vol] 26.0 mmol/L 21.0-32.0 [facility] Work Phone: Globulin (S) [Mass/Vol] 3.0 g/dL 2.2-4.2 [facility] Work Phone: Urea nitrogen/Creatinine [Mass ratio] 12.7 mg/mg 10-20 [facility] Work Phone: Laboratory - Hematology and Cell countson 02-18-2022 Erythrocyte distribution width (RBC) [Entitic vol] 49.2 fL 35.1-43.9 [facility] Work Phone: Erythrocyte distribution width (RBC) [Ratio] 14.1 % 11.6-14.6 [facility] Work Phone: Immature granulocytes/100 WBC (Bld) 0.700 % 0.0-0.9 [facility] Work Phone: Comment on above: IG% - Immature Granu locytes (promyelocytes, myelocytes and metamyelocytes) > 1% indicates that a LEFT SHIFT is Present. MCH (RBC) [Entitic mass] 32.5 pg 27.0-32.0 [facility] Work Phone: Nucleated RBC/100 WBC (Bld) [Ratio] 0 % 0-5 [facility] Work Phone: MCHC Auto (RBC) [Mass/Vol]on 02-18-2022 MCHC (RBC) [Mass/Vol] 34.5 g/dL 32-36 [facility] Work Phone: No Panel Informationon 02-18 Estimated Creatinine Clearance Calc 169.44 ml/min [facility] Work Phone: Estimated GFR (MDRD) Amer 223 mL/min >60 [facility] Work Phone: Comment on above: GFR Calc Estimated GFR (MDRD) Non-Af Amer 184 mL/min >60 [facility] Work Phone: Comment on above: Non- GFR Calc Platelets bldon 02-18-2022 Platelets (Bld) [#/Vol] 230 10*3/uL 150-450 [facility] Work Phone: Serum or plasma albumin nati urement (mass/volume)on 02-18-2022 Albumin [Mass/Vol] 3.4 g/dL 3.2-5.0 [facility] Work Phone: Serum or plasma albumin/glob ulin mass ratioon 02-18-2022 Albumin/Globulin [Mass ratio] 1.1 {ratio} 0.9-2.4 [facility] Work Phone: Serum or plasma calcium nati urement (mass/volume)on 02-18-2022 Calcium [Mass/Vol] 8.7 mg/dL 8.5-10.1 [facility] Work Phone: Serum or plasma creatinine m easurement (mass/volume)on 02-18-2022 Creatinine [Mass/Vol] 0.55 mg/dL 0.70-1.30 [facility] Work Phone: Comment on above: The validity of the calculated GFR & GFRAA in patients over 70 years has not been determined. Clinical correlation is essential. Serum or plasma urea nitroge n measurement (mass/volume)on 02-18-2022 Urea nitrogen [Mass/Vol] 7 mg/dL 7-18 [facility] Work Phone: Thin prep Papanicolaou smear with manual screeningon 02-18-2022 Thin prep Papanicolaou smear with manual screening 25 U/L 15-37 [facility] Work Phone: Thin prep Papanicolaou smear with manual screening 6 5-15 [facility] Work Phone: Bedside Glucoseon 02-17-2022 FINGERSTICK GLU 109 mg/dL High 74-106 [facility] Comment on above: Result Comment: OSCAR MCKEONGASTON OF PATIENT CARE PER NURSING PROTOCOL Performed By: #### L 501.080 ####[facility] [address] [place], [address] Glucose Glucometer (BldC) [M ass/Vol]on 02-17-2022 Glucose [Mass/Vol] 109 mg/dL 74-106 [facility] Work Phone: Comment on above: MANAGEMENT OF PATIEN T CARE PER NURSING PROTOCOL Operative Reporton 2 Operative Report [facility] Medical Records Department [address] [place] [address] Operative Report 02/17/22 1042 MR#: [id number] Acct: [id number] Name: RAMOS RUGGIERO Rep #: [id number] : 1990 31 From: Oswaldo Snyder DO PCP: ALIYA Zee Status:[facility] Location: [place] [address] Report of Operation Date of Procedure: 02/17/22 Description of Surgical Findings:: Preoperative diagnosis: 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 Snyder First assistants: No PISANO and Court Maloney NP Anesthesia: General endotracheal anesthesia administered by [facility] Estimated blood loss: Less than 30 cc Drains: 1/4 inch [place] Complications: None Procedure: Patient was taken to the OR where he was placed in the supine position on the operating table he was then placed under general endotracheal anesthesia. A Goldsmith catheter was inserted. Neuro monitoring placed their leads on the patient. A Kerlix was placed from 1 wrist to the other around the feet purposes of pulling down the shoulders during x-ray taking. Then prepped the right crest and the cervical area in the standard fashion. Initially was made a small incision over the right iliac crest and unit using a Jamshidi needle through the small incision and then into the bone and tamped into place 60 cc of BMA were obtained that were handed off to the technicians in the room the the stem cells from the rest of the cells and concentrated the stem cells 8-10 times. These were returned to us. Alignment incision starting in the midline at the predetermined point. At that point was made with a very small incision using the end of a needle and it was done preoperatively prior to the prep. Incision was carried to the right sternocleidomastoid muscle subcutaneous tissues were incised length of skin incision. We then elevated the subcutaneous tissues both cephalad and caudad exposing the platysma. Platysma was split along its medial border and the planes then exploited. First I opened the superficial cervical fascia followed by the exploitation of the pretracheal fascia. This fashion the trachea and esophagus were pulled to the left the carotid which was of course identified was then pulled to the right exposing the precervical fascia. We then identified what was thought to be C6-7 however needle was placed in there and the x-ray demonstrated that we were at C7-T1 so we simply moved up 1 level took another x- ray to confirm that it was 6 7 which it was before removal of the needle then cauterized a hole in the center of the disc to prevent losing the level. I then first to cauterize the anterior longitudinal ligament and periosteum above and below the space I then cauterized the edge of the coli muscles on each side and elevated them gently off of the disc space. Self-retaining sports marketing coordinator retractors were then put in place giving us good access. We used a 15 blade to cut the anterior annulus removed it with pituitary rongeurs and then removed more nucleus from within the disc space with pituitary rongeurs and eventually with curettes. The curettes were also used to remove the thickened cartilage off of both endplates. Gave us good access by putting a distractor in on the right side giving us more exposure. Using a carlos bur I was able to remove the uncinate process posteriorly and large it and remove a little bit also of C6. In this fashion we took the pressure completely off of the base of the C7 nerve root. It was then checked with a nerve hook was found to be quite open in its foramen. I then used the carlos bur to bur the anterior osteophytes and flatten them out. I then used a trial 14 x 16-1/2 cage first we used an 8 and then we trialed up to a 9. This was the correct size. We had anesthesia pulled on the head for this of course. We then used the broaches to broach the space and the appropriate 9 mm large cage was opened. Filled it with demineralized bone matrix and we then soaked the bone matrix in the patient's own stem cells. Esthesia pulling on the head it was then tamped into place and countersunk a couple of millimeters. We then used a 26 mm spider plate centered at placed [address] and then used the awl to punch the other 3 holes 1 at a time followed by insertion of 14mm screws at each point and lastly we removed the locking pin and replaced it with another 14 mm screw. This was observed with a lateral x-ray was found to be satisfactory with excellent position of the cage the plate and the screws. Irrigation was carried out we then used a amniotic membrane on top of the plate to prevent adhesions to the trachea or the esopha (more content not included)... Normal [facility] Spine 1 View Any Levelon Spine 1 View Any Level [facility] Imaging Services [address] [place] [address] Spine 1 View Any Level MR#: [id number] Acct: [id number] Name: RAMOS RUGGIERO Rep #: [id number] : 1990 M 31 From: Pietro Tomlin PCP: ALIYA Zee Status: ADM ANDRE Study: Spine 1 View Any Level Date of Exam: 02/17/22 Exam# [id number] Ordering Dr: Oswaldo Snyder DO EXAM: XR CERVICAL SPINE, 1 VIEW CLINICAL INDICATION: IMAGE 3 neck pain fusion TECHNIQUE: Lateral view of the cervical spine. This report was created using [employer] report generation technology. COMPARISON: Study done earlier today. FINDINGS: VERTEBRAE: Unremarkable. Preserved vertebral body height. No acute fracture. No spondylolisthesis. Preservation of the normal cervical lordosis. No significant facet arthropathy. DISC SPACES: Spinal fixation hardware noted in the spine at C6-7. There is/ are disc spacer(s) in place. SOFT TISSUES: Unremarkable. No prevertebral soft tissue widening. LUNG APICES: Clear. RAD/Spine 1 View Any Level IMPRESSION: Spinal fixation hardware noted in the spine at C6-7. There is/ are disc spacer(s) in place. Electronically Signed: Pietro Nath MD at 16:49 EDT , CC: ALIYA Black; Dr. Oswaldo Snyder DO Mall Plant Caretaker: Signed Normal [facility] Spine 1 View Any Level [facility] Imaging Services [address] [place] [address] Spine 1 View Any Level MR#: [id number] Acct: [id number] Name: RAMOS RUGGIERO Rep #: [id number] : 1990 M 31 From: Joce Connolly DO PCP: ALIYA Zee Status: [facility] Study: Spine 1 View Any Level Date of Exam: 02/17/22 Exam# [id number] Ordering Dr: Oswaldo Snyder DO INDICATION: ERAS, ANTERIOR CERVICAL FUSION C5-7, C6-7 EXAMINATION/TECHNIQUE: X-RAY - XR Spine Cervical 1 View COMPARISON: Intraoperative single lateral view cervical spine radiograph from same day. FINDINGS: Intraoperative single lateral view of the left cervical spine was obtained for position check of the surgical pin. Surgical pin terminates in the C6-C7 intervertebral disc space. Remainder of the exam is unchanged. RAD/Spine 1 View Any Level IMPRESSION: Surgical pin now terminates in the C6-C7 intervertebral disc space.. Electronically Signed: Joce Connolly, at 9:42 EDT , CC: ALIYA Black; Dr. Oswaldo Snyder DO Mall Plant Caretaker: Signed Normal [facility] Spine 1 View Any Level [facility] Imaging Services [address] [place] [address] Spine 1 View Any Level MR#: [id number] Acct: [id number] Name: RAMOS RUGGIERO Rep #: [id number] : 1990 M 31 From: Miller pastor MD PCP: ALIYA Zee Status: [facility] Study: Spine 1 View Any Level Date of Exam: 02/17/22 Exam# [id number] Ordering Dr: Oswaldo Snyder DO STUDY: X-RAY - CERVICAL SPINE REASON FOR EXAM: Male, 31 years old. POSITION CHECK #1 C6-7 ERAS, CERVICAL FUSION TECHNIQUE: 1 lateral view(s) of the cervical spine were obtained. COMPARISON: MRI of the cervical spine dated JANUARY 28, 2022 FINDINGS: The patient is intubated. A radiopaque/metallic surgical marker overlies the C6-C7 anterior aspect and intervertebral disc space. Normal anterior atlantoaxial articulation. Normal odontoid process. Normal cervical lordosis. There is multi-level endplate spondylosis. Minimal disc space narrowing at several levels. The soft tissue structures are unremarkable. RAD/Spine 1 View Any Level IMPRESSION: 1. A radiopaque/metallic surgical marker overlies the C6-C7 anterior aspect and intervertebral disc space Electronically Signed: Miller Salinas MD at 8:46 EDT Reading Location ID and State: [facility] / [place] , Service support , CC: ALIYA Black; Dr. Oswaldo Snyder DO Mall Plant Caretaker: Signed [facility] Surgery Specimen Level IIIon 02-17-2022 Surgery Specimen Level III OPERATION: ERAS, anterior cervical fusion C6-7 PRE-OP DIAGNOSIS: Herniated nucleus polposus C6-7 TISSUE SUBMITTED: Cervical disc ---- Intervertebral disc, C6-7, discectomy: Degenerative and reparative change. AM:mia 02/18/2022 Slides are reviewed. Received in fixative is one container labeled with the patient's name and designated cervical disc. The specimen consists of multiple irregular fragments of shelton, indurated tissue that in aggregate measure 4 x 3.5 x 1 cm. Cage Maker Machine sections are submitted in two cassettes. / SJ:mia 02/17/2022 TC:5 CPT: 73235 ---- Signed (signature on file) Dr. Bryan Shetty, 02/18/22 1236 ---- Normal [facility] Comment on above: Performed By: #### P SUIII ####[facility] [address] [place], [place], [id number] Hepatitis A AB, Totalon 05 HEPATITIS A,TOT Negative Normal Negative [facility] Comment on above: Result Comment: Perf ormed at: [facility] [address], [place], [place] [id number] Lead Android Developer: Bentley Angeles PhD, Phone: [phone] Performed By: #### L 3890.6200, L100.0100, L3890.6005, M100.651, L500.2500, L3890.6300, L3100.0300 ####[facility] [address] [place], [address] MRSA/SAID NASAL SCREENon MRSA+SAID SCRN Reason for Exam: PRE OP PREOP MRSA MRSA Negative S. AUREUS S. aureus Negative Normal [facility] Comment on above: Performed By: #### L 3890.6200, L100.0100, L3890.6005, M100.651, L500.2500, L3890.6300, L3100.0300 ####[facility] [address] [place], [address] 12 Lead EKGon 02-12-2022 12 Lead EKG [facility] Cardiovascular Services [address] [place] [address] 12 Lead EKG 02/12/22 0948 MR#: [id number] Acct: [id number] Name: RAMOS RUGGIERO Rep #: [id number] : 1990 31 From: Marsha Adkins MD Attending Dr: Dr. Oswaldo Snyder DO Status: PRE MEC Ordering Dr: Oswaldo Snyder DO Date: 02/12/22 [place] [facility] [place] Sex: M C Admitted: Test Reason : PREOP Blood Pressure : / mmHG Vent. Rate : 094 BPM Atrial Rate : 094 BPM P-R Int : 130 ms QRS Dur : 088 ms QT Int : 346 ms P-R-T Axes : 070 054 046 degrees QTc Int : 432 ms Normal sinus rhythm Normal ECG Confirmed by MELBA JARQUIN, SAMARA ([id number]), business editor KORTNEY BRANNON ([id number]) on 02/13/2022 10:33:40 AM Referred By: DOMINGUEZ Confirmed By:EMILY ADKINS MD 02/13/22 1033 Date Marsha Adkins MD CC: ALIYA Black; Dr. Oswaldo Snyder DO Signed Normal [facility] Basic Metabolic Profile (BMP )on 02-12-2022 BUN/CRE 12.1 RATIO Normal 10-20 [facility] Comment on above: Performed By: #### L 3890.6200, L100.0100, L3890.6005, M100.651, L500.2500, L3890.6300, L3100.0300 ####[facility] [address] [place], [address] CA,Total 8.9 mg/dL Normal 8.5-10.1 [facility] Comment on above: Performed By: #### L 3890.6200, L100.0100, L3890.6005, M100.651, L500.2500, L3890.6300, L3100.0300 ####[facility] [address] [place], [address] Chloride [Moles/Vol] 109 mmol/L High 98-107 [facility] Comment on above: Performed By: #### L 3890.6200, L100.0100, L3890.6005, M100.651, L500.2500, L3890.6300, L3100.0300 ####[facility] [address] [place], [address] CO2 [Moles/Vol] 23.0 mmol/L Normal 21.0-32.0 [facility] Comment on above: Performed By: #### L 3890.6200, L100.0100, L3890.6005, M100.651, L500.2500, L3890.6300, L3100.0300 ####[facility] [address] [place], [address] Creatinine [Mass/Vol] 0.83 mg/dL Normal 0.70-1.30 [facility] Comment on above: Result Comment: The validity of the calculated GFR GFRAA in patients over 70 years has not been determined. Clinical correlation is essential. Performed By: #### L 3890.6200, L100.0100, L3890.6005, M100.651, L500.2500, L3890.6300, L3100.0300 ####[facility] [address] [place], [place], [phone] EST GFR - AA 140 mL/min Normal >60 [facility] Comment on above: Result Comment: Afri can Grenadian GFR Calc Performed By: #### L 3890.6200, L100.0100, L3890.6005, M100.651, L500.2500, L3890.6300, L3100.0300 ####[facility] [address] [place], [phone] GAP 9 Normal 5-15 [facility] Comment on above: Performed By: #### L 3890.6200, L100.0100, L3890.6005, M100.651, L500.2500, L3890.6300, L3100.0300 ####[facility] [address] [place], [place], [phone] GFR/1.73 sq M.predicted among non-blacks MDRD (S/P/Bld) [Vol rate/Area] 115 mL/min/{1.73_m2} Normal >60 [facility] Comment on above: Result Comment: Non- GFR Calc Performed By: #### L 3890.6200, L100.0100, L3890.6005, M100.651, L500.2500, L3890.6300, L3100.0300 ####[facility] [address] [place], [place], [phone] Glucose [Mass/Vol] 103 mg/dL Normal 74-106 [facility] Comment on above: Result Comment: Fast ing Glucose result from 100 to 125 mg/dL suggests IMPAIRED HOMEOSTASIS per A.D.A. criteria. Performed By: #### L 3890.6200, L100.0100, L3890.6005, M100.651, L500.2500, L3890.6300, L3100.0300 ####[facility] [address] [place], [address] Potassium [Moles/Vol] 4.0 mmol/L Normal 3.5-5.1 [facility] Comment on above: Performed By: #### L 3890.6200, L100.0100, L3890.6005, M100.651, L500.2500, L3890.6300, L3100.0300 ####[facility] [address] [place], [address] Sodium [Moles/Vol] 141 mmol/L Normal 136-145 [facility] Comment on above: Performed By: #### L 3890.6200, L100.0100, L3890.6005, M100.651, L500.2500, L3890.6300, L3100.0300 ####[facility] [address] [place], [address] Urea nitrogen [Mass/Vol] 10 mg/dL Normal 7-18 [facility] Comment on above: Performed By: #### L 3890.6200, L100.0100, L3890.6005, M100.651, L500.2500, L3890.6300, L3100.0300 ####[facility] [address] [place], [place], [phone] Blood manual differential co mment interpretation (narrative result)on 02-12-2022 Manual differential comment Binu (Bld) [Interp] SCANNED [facility] Work Phone: CBC W/Diff, Automatedon 05- SMEAR COMMENT SCANNED Normal [facility] Comment on above: Performed By: #### L 3890.6200, L100.0100, L3890.6005, M100.651, L500.2500, L3890.6300, L3100.0300 ####[facility] [address] [place], [place], [address] Direct bilirubinon Bilirubin.direct [Mass/Vol] 0.14 mg/dL 0.00-0.30 [facility] Work Phone: HIV - WCHon 02-12-2022 HIV Non-Reactive Normal Nonreactive [facility] Comment on above: Order Comment: Reaso n for Exam: PAT Performed By: #### L 3890.6200, L100.0100, L3890.6005, M100.651, L500.2500, L3890.6300, L3100.0300 ####[facility] [address] [place], [address] HIV 1 and HIV-2 antibody ass ay with HIV-1 p24 antigen detectionon 02-12-2022 HIV 1+2 Ab+HIV1 p24 Ag IA Ql Non-Reactive Nonreactive [facility] Work Phone: Hepatitis B Surface Antibody on 02-12-2022 HEP B Surf Ab Non-Reactive Normal [facility] Comment on above: Order Comment: Reaso n for Exam: PAT Result Comment: Non Reactive: Inconsistent with immunity less than <10 mIU/mL Reactive: Consistent with immunity greater than or equal to 10 mIU/mL Performed By: #### L 3890.6200, L100.0100, L3890.6005, M100.651, L500.2500, L3890.6300, L3100.0300 ####[facility] [address] [place], [place], [phone] Hepatitis C Antibodyon 02-12 Hepatitis C Ab Non-Reactive Normal Nonreactive [facility] Comment on above: Order Comment: Reaso n for Exam: PAT Result Comment: Non Reactive: < 0.8 Equivocal: >/= 0.8 to < 1.0 Reactive: >/= 1.0 The CDC recommends that a reactive/equivocal HCV antibody result be followed up by the HCV Nucleic Acid Amplification test (894203) Performed By: #### L 3890.6200, L100.0100, L3890.6005, M100.651, L500.2500, L3890.6300, L3100.0300 ####[facility] [address] [place], [address] INR in Blood by Coagulation assayon 02-12-2022 INR Coag (Bld) [Relative time] 1.0 {INR} [facility] Work Phone: [phone] Laboratory - Chemistry and C hemistry - challengeon 02-12-2022 Magnesium [Mass/Vol] 2.1 mg/dL 1.6-2.6 [facility] Work Phone: [phone] Laboratory - Coagulationon 0 02-12-2022 aPTT Coag (Bld) [Time] 29.3 s 24.1-36.2 [facility] Work Phone: [phone] PT Coag (PPP) [Time] 12.9 s 11.7-14.9 [facility] Work Phone: [phone] Liver Profileon 02-12-2022 Albumin [Mass/Vol] 4.0 g/dL Normal 3.2-5.0 [facility] Comment on above: Performed By: #### L 300.3900, L500.3400, L501.5200, L300.4310 #### [facility] [address] [place], [address] ALK P 108 U/L Normal 45-117 [facility] Comment on above: Performed By: #### L 300.3900, L500.3400, L501.5200, L300.4310 #### [facility] [address] [place], [address] ALT [Catalytic activity/Vol] 38 U/L Normal 16-61 [facility] Comment on above: Performed By: #### L 300.3900, L500.3400, L501.5200, L300.4310 #### [facility] [address] [place], [address] AST [Catalytic activity/Vol] 26 U/L Normal 15-37 [facility] Comment on above: Performed By: #### L 300.3900, L500.3400, L501.5200, L300.4310 #### [facility] [address] [place], [address] Bilirubin [Mass/Vol] 0.50 mg/dL Normal 0.20-1.00 [facility] Comment on above: Result Comment: For patients on eltrombopag therapy, use of Dimension Purcell TBIL is not recommended. Performed By: #### L 300.3900, L500.3400, L501.5200, L300.4310 #### [facility] [address] [place], [address] Bilirubin.direct [Mass/Vol] 0.14 mg/dL Normal 0.00-0.30 [facility] Comment on above: Performed By: #### L 300.3900, L500.3400, L501.5200, L300.4310 #### [facility] [address] [place], [address] Globulin (S) [Mass/Vol] 3.2 g/dL Normal 2.2-4.2 [facility] Comment on above: Performed By: #### L 300.3900, L500.3400, L501.5200, L300.4310 #### [facility] [address] [place], [address] T PROT 7.2 g/dL Normal 6.4-8.2 [facility] Comment on above: Performed By: #### L 300.3900, L500.3400, L501.5200, L300.4310 #### [facility] [address] [place], [address] Magnesiumon 02-12-2022 Magnesium [Mass/Vol] 2.1 mg/dL Normal 1.6-2.6 [facility] Comment on above: Performed By: #### L 300.3900, L500.3400, L501.5200, L300.4310 ####[facility] [address] [place], [address] No Panel Informationon 02-12 Hepatitis A Antibody Total Negative Negative [facility] Work Phone: Comment on above: Performed at: [address] [id number] Director: Bentley Angeles PhD, Phone: [phone] Hepatitis C Antibody Non-Reactive Nonreactive [facility] Work Phone: Comment on above: Non Reactive: < 0.8 Equivocal: >/= 0.8 to < 1.0 Reactive: >/= 1.0The CDC recommends that a reactive/equivocal HCV antibody result be followed up by the HCV Nucleic Acid Amplificationtest (332168) Nasal Screen MRSA/MSSA [facility] Work Phone: Partial Thromboplast Timeon 02-12-2022 aPTT Coag (Bld) [Time] 29.3 s Normal 24.1-36.2 [facility] Comment on above: Performed By: #### L 300.3900, L500.3400, L501.5200, L300.4310 #### [facility] [address] [place], [address] Prothrombin Time w/INRon INR Coag (PPP) [Relative time] 1.0 {INR} Normal [facility] Comment on above: Performed By: #### L 300.3900, L500.3400, L501.5200, L300.4310 #### [facility] [address] [place], [place], [id number] PT Coag (PPP) [Time] 12.9 s Normal 11.7-14.9 [facility] Comment on above: Performed By: #### L 300.3900, L500.3400, L501.5200, L300.4310 #### [facility] [address] [place], [place], [id number] Serum hepatitis B virus surf ricardo antibody IgG detectionon 02-12-2022 HBV surface IgG Ql (S) Non-Reactive [facility] Work Phone: Comment on above: Non Reactive: Incons istent with immunity less than <10 mIU/mL Reactive: Consistent with immunity greater than or equal to 10 mIU/mL Orthopedic Visit Reporton Orthopedic Visit Report [facility] [address] [place] [address] [address] [place], [place] [address] OFFICE VISIT Date of Service: 02/11/22 MR#: [id number] Acct: [id number] Name: RAMOS RUGGIERO Rep #: [id number] : 1990 Provider: Dr. Oswaldo maurice DO Age/Sex: 31/M Location: [facility] [place] Status: Signed Intake Intake Visit Reasons: cervical Allergies Penicillins Allergy (Verified 02/09/22 11:05) Hives horseradish Adverse Reaction (Verified 02/09/22 11:05) PT UNSURE OF REACTION PFSH Medical History Alcohol use Anxiety Arthritis Excessive bleeding Heartburn History of steroid therapy Injury of head and neck Neck ache Smoker Surgical History (Updated 02/09/22 @ 11:17 by Maggie Pereira) Hx of inguinal hernia surgery Hx of wisdom tooth extraction Social History Smoking Status: Current every day smoker tobacco type: cigarettes HPI cervical Details: Parts of this documentation were recorded by a scribe, this documentation accurately reflects the service provided and the decisions made by me, Dr. Oswaldo Snyder DO 02/11/22 1108. RAMOS RUGGIERO is a 31 year old M here today for 1 week preop visit. He is scheduled for both C6-7 and C5-6 with decompression of the left C7 and C6 nerve roots. Denies any changes since is last visit on 02/11/22. Ramos is here for his preop visit. His neck and arm pain have actually improved. However his tricep strength is still very bad on the left as compared to the right with atrophy of that muscle. Because of the large size of the herniated disc we will proceed with surgical intervention. That combination is when the arm pain is improved but the weakness is not or is worse. That can mean that the nerve is dying. I did go over his films again. I am having some doubt that we need to do C5-6. As the problem is really from the 6 7 level. For now I will keep the surgery scheduled for a two-level fusion knowing that perhaps or even more than likely I will only do C6-7. I will see him again next Wednesday. Coding Level of Care Code Off vis,est,level 2 Diagnoses Herniated nucleus pulposus, C6-7 left M50.223 Time Spent (min) 20 Assessment and Plan Assessment and Plan (1) Herniated nucleus pulposus, C6-7 left: Status: Acute 02/11/22 1144 Date Oswaldo Delcid Signature: Date (if applicable) CC: ALIYA Black Normal [facility] Orthopedic Visit Reporton Orthopedic Visit Report [facility] Medicine [address] [place] [address] OFFICE VISIT Date of Service: 02/02/22 MR#: [id number] Acct: [id number] Name: RAMOS RUGGIERO Rep #: [id number] : 1990 Provider: Dr. Oswaldo maurice DO Age/Sex: 31/M Location: [facility] [place] [facility] Status: Signed Intake Intake Visit Reasons: cervical Allergies No Known Allergies Allergy (Verified 01/09/22 08:37) PFSH Medical History Neck ache Social History Smoking Status: Current every day smoker tobacco type: cigarettes HPI cervical Details: Parts of this documentation were recorded by a scribe, this documentation accurately reflects the service provided and the decisions made by me, Dr. Oswaldo Snyder, 02/02/22 1109. RAMOS RUGGIERO is a 31 year old M here today for F/U after having cervical MRI. Ramos returns for follow-up. I reviewed the MRI scan as expected he has a large herniation into the foramen at C6-7 on the left side. This is accounting for his severe left triceps weakness and atrophy. But he also has pain that goes right down his classic C6 pattern into the thumb index finger and long finger. At the at C5-6 he has foraminal stenosis on the left consistent with that C6 dermatome also. He will need surgical intervention of both C6-7 and C5-6 with decompression of the left C7 and C6 nerve roots. We will put him on the schedule as soon as that is feasible. For now we will take him off work. Coding Level of Care Code Off vis,est,level 2 Diagnoses Herniated nucleus pulposus, C5-6 left M50.222 Herniated nucleus pulposus, C6-7 left M50.223 Time Spent (min) 20 Assessment and Plan Assessment and Plan (1) Herniated nucleus pulposus, C5-6 left: Status: Acute (2) Herniated nucleus pulposus, C6-7 left: Status: Acute 02/02/22 1154 Date Oswaldo Snyder DO [facility] Signature: Date (if applicable) CC: ALIYA Black [facility] Orbits for Foreign Bodyon Orbits for Foreign Body [facility] Imaging Services [address] [place] [address] Orbits for Foreign Body MR#: [id number] Acct: [id number] Name: RAMOS RUGGIERO Rep #: [id number] : 1990 M 31 From: Kemar narvaez MD PCP: ALIYA Zee Status: REG CLI Study: Orbits for Foreign Body Date of Exam: 01/28/22 Exam# [id number] Ordering Dr: Oswaldo Snyder DO STUDY: X-RAY - ORBITS REASON FOR EXAM: Male, 31 years old. HX METAL TO EYE,,PRE MRI TECHNIQUE: 2 view(s) of the orbits were obtained. COMPARISON: None. FINDINGS: Normal bilateral orbits without a metallic orbital foreign body. Normal visualized facial bones. Normal paranasal sinuses. The soft tissue structures are unremarkable. RAD/Orbits for Foreign Body IMPRESSION: No demonstrated metallic orbital foreign body. The patient is cleared for an MRI examination. Electronically Signed: Kemar Dunham MD at 13:25 EDT Reading Location ID and State: [address] [place] [address] , Service support , CC: ALIYA Black; Dr. Oswaldo Snyder DO Mall Plant Caretaker: Signed Normal [facility] Spine Cervical (Routine)on 0 01-28-2022 Spine Cervical (Routine) [facility] Imaging Services [address] [place] [address] Spine Cervical (Routine) MR#: [id number] Acct: [id number] Name: RAMOS RUGGIERO Rep #: [id number] : 1990 M 31 From: Miller pastor MD PCP: ALIYA Zee Status: REG CLI Study: Spine Cervical (Routine) Date of Exam: Exam# [id number] Ordering Dr: Oswaldo Snyder DO STUDY: MRI CERVICAL SPINE WITHOUT CONTRAST REASON FOR EXAM: Male, 31 years old. pain, HNP c5-c6 left; neck and left arm pain TECHNIQUE: Standardized fat and water weighted pulse sequences were obtained in the sagittal and axial planes. Mild motion artifact is present. COMPARISON: Cervical spine x-ray dated December 18, 2021 FINDINGS: Normal foramen magnum and brainstem-cervical cord junction. Normal craniovertebral junction. Normal anterior atlantoaxial articulation. Normal odontoid process. There is straightening of the normal cervical lordosis. C2-3: Normal endplates. Mild disc desiccation. Normal disc height and morphology. Normal central canal and intervertebral neural foramina. C3-4: Normal endplates. Mild disc desiccation. Normal disc height and morphology. Normal central canal and intervertebral neural foramina. C4-5: Normal endplates. Mild disc desiccation. Normal disc height and morphology. Mild intrinsic central canal stenosis. Normal bilateral intervertebral neural foramina. C5-6: Normal endplates. Diffuse disc desiccation, mild disc space narrowing, and minimal annular bulging contributing to mild mass effect on anterior aspect of the cord and mild central canal stenosis. Moderate left foraminal stenosis at the origin with nerve root compression secondary to uncovertebral hypertrophy. Normal right neural foramen. C6-7: Normal endplates. Diffuse disc desiccation with mild disc space narrowing, with a left paracentral/foraminal disc protrusion contributing to moderate foraminal stenosis and compression of the nerve root at its origin. Mild intrinsic central canal stenosis and mass effect is also present on the anterior aspect of the cord asymmetric to the left. Normal right neural foramen. C7-T1: Normal endplates. Diffuse disc desiccation and mild posterior disc space narrowing with a shallow midline disc protrusion. Normal central canal and intervertebral neural foramina. Normal cervical cord. There is no demonstrated cervical cord syrinx cavity. Normal visualized soft tissue structures. MRI/Spine Cervical (Routine) IMPRESSION: 1. Multilevel degenerative changes, as described above. 2. C5-C6 and C6-C7 mild central canal stenosis and mild mass effect on anterior aspect of the cord and left foraminal stenosis with nerve root compression Electronically Signed: Miller Salinas MD at 16:09 EDT Reading Location ID and State: [facility] / [place] , Service support , CC: ALIYA Black; Dr. Oswaldo Snyder DO Mall Plant Caretaker: Signed Normal [facility] Orthopedic Visit Reporton Orthopedic Visit Report [facility] [address] [place] [address] [address] [place] [address] OFFICE VISIT Date of Service: 01/09/22 MR#: [id number] Acct: [id number] Name: RAMOS RUGGIERO Rep #: [id number] : 1990 Provider: Dr. Oswaldo maurice DO Age/Sex: 31/M Location: [facility] [place] [facility] Status: Signed Intake Vital Signs 01/09/22 08:31 Height 5 ft 8 in Weight: 131 lb BMI 19.9 Intake Visit Reasons: CERVICAL SPINE Allergies No Known Allergies Allergy (Verified 01/09/22 08:37) PFSH Medical History Neck ache Social History Smoking Status: Current every day smoker tobacco type: cigarettes HPI CERVICAL SPINE Details: Parts of this documentation were recorded by a scribe, this documentation accurately reflects the service provided and the decisions made by me, Dr. Oswaldo Snyder DO 01/09/22 0829. RAMOS RUGGIERO is a 31 year old M NEW Pt here today for neck pain. Pt states 3 weeks ago he was moving a heavy TV and noticed a gradual pain in his neck which worsened over a few days. Pt states pain is on the left side with a burning nerve pain down his left arm and numbness in his thumb, index, and middle fingers. Pt states he has gone to 2 sessions of PT. Pt denies any previous injuries, surgeries, or injections on neck. Pt has had x-rays and a CT scan which he brought the disc for today. 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 This means he has to look up all the time. Is been very difficult to do of late after 3 weeks ago when he had the problem start lifting the heavy television. He describes a perfect C6 dermatome. The patient's pain has been severe. Medrol Dosepak barely touched it. On examination he has positive Spurling's to the left. He has pain down the arm with extension of his cervical spine. He has some weakness of the extensors of the wrist on the left. However the strange thing is that he also has weakness of the triceps with atrophy of the triceps on the left as compared to the right suggesting that its not only C6 but possibly also C7 nerve root unless he has an anomalous innervation. He has no long tract signs. Clonus is absent Babinski's are downgoing. 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 This completely straightens up the neck. We will order an MRI scan of the cervical spine as soon as is reasonably possible. He has 2 neurological deficits including the C6 and C7 nerve roots. Note that I can easily overpower his left triceps. I will see him after the MRI scan. He will probably need surgical intervention. Incidentally I will review the CT scan that was ordered but an MRI is still necessary. Ortho Exam General General: Yes no acute distress Neurologic: Yes alert and Yes oriented x3 Psychologic: Yes reasonable and appropriate Coding Level of Care Code Off vis,new,level 3 Diagnoses Herniated nucleus pulposus, C5-6 left M50.222 Time Spent (min) 30 Assessment and Plan Assessment and Plan (1) Herniated nucleus pulposus, C5-6 left: Status: Acute 01/09/22 0912 Date Oswalod Delcid Signature: Date (if applicable) CC: ALIYA Black Normal [facility] Cerv Spine 4 or 5 Viewson Cerv Spine 4 or 5 Views [facility] Imaging Services [address] [place] [address] Cerv Spine 4 or 5 Views MR#: [id number] Acct: [id number] Name: RAMOS RUGGIERO Rep #: [id number] : 1990 M 31 From: Db Garcia MD PCP: ALIYA Zee Status: REG ER Study: Cerv Spine 4 or 5 Views Date of Exam: 12/18/21 Exam# [id number] Ordering Dr: Tani Merida DO EXAM: XR CERVICAL SPINE, 4 OR 5 VIEWS CLINICAL INDICATION: neck pain TECHNIQUE: Frontal, lateral and bilateral oblique views of the cervical spine. This report was created using [employer] report generation technology. COMPARISON: None. FINDINGS: VERTEBRAE: Mild cervical kyphosis. Normal vertebral body heights and endplates. No spondylolisthesis. No significant facet arthropathy. DISC SPACES: Minimal C5-C6 disc space height narrowing. Normal remaining disc space heights. Normal bilateral cervical intervertebral neural foramina. SOFT TISSUES: Unremarkable. No prevertebral soft tissue widening. LUNG APICES: Clear. RAD/Cerv Spine 4 or 5 Views IMPRESSION: Minimal narrowing of the C5-C6 disc space height otherwise negative cervical spine radiographs. Electronically Signed: Db Garcia MD at 8:40 EDT Reading Location ID and State: [facility] / [place] , Service support , CC: ALIYA Black; Dr. Tani Merida DO Mall Plant Caretaker: Signed Normal [facility] Emergency Department Summary on 12-18-2021 Emergency Department Summary [facility] Medical Records Department [address] [place] [address] Emergency Department Summary 12/18/21 MR#: [id number] Acct: [id number] Name: RAMOS RUGGIERO R Rep #: [id number] : 1990 31 From: Tani Merida DO PCP: ALIYA Zee Status:DEP ER Location: ED HPI History of Present Illness Chief Complaint: Other, Pain/Inj Narrative Narrative: 31-year-old male presenting with neck pain. He states it started after he was lifting heavy object on Wednesday. He states the pain is in his left trapezius and radiates to the lateral aspect of his left elbow. He denies any neck trauma. He states that he worked overnight and he was having trouble finishing his shift due to pain. He tried to make a appointment with his primary care physician but cannot get in until Wednesday. PFSH PFS Medical History (Updated 12/18/21 @ 10:00 by Kitty Shaffer) Neck ache Home Medications pantoprazole [Protonix] 40 mg PO DAILY #30 tab 04/04/21 [Rx Last Taken Unknown] naproxen [Naprosyn] 500 mg PO BID PRN #20 tab 12/18/21 [Rx Last Taken Unknown] tizanidine [Zanaflex] 4 mg PO QHS PRN #14 tab 12/18/21 [Rx Last Taken Unknown] Allergy/AdvReac Type Severity Reaction Status Date / Time Penicillins Allergy Hives Verified 04/04/21 19:08 Social History Smoking Status: Current every day smoker tobacco type: cigarettes ROS ROS ED Constitutional Constitutional ED: Denies chills or fever(s) Eyes Eyes: Denies blurry vision ENT ENT ED: Denies rhinorrhea or sore throat Cardiovascular Cardiovascular: Denies chest pain or palpitations Respiratory/Chest Respiratory/Chest: Denies cough or dyspnea Gastrointestinal Gastrointestinal: Denies abdominal pain, nausea or vomiting Genitourinary Genitourinary ED: Denies dysuria or hematuria Musculoskeletal Musculoskeletal: Reports neck pain; Denies back pain Integumentary Denies rash Neurologic Neurologic: Denies headache(s), paresthesias or weakness EXAM Physical Exam Const Vital Signs: 12/18/21 07:28 Temperature 97.1 F L Temperature Source Temporal Pulse Rate 71 Respiratory Rate 16 Blood Pressure 152/82 H Blood Pressure Mean 105 Pulse Ox 99 Oxygen Delivery Method Room Air Positive well nourished General Appearance ED: NAD HEENT atraumatic Eyes PERRL and EOMs intact bilaterally Neck Neck Narrative: No midline spinal tenderness, deformity, step-off. There is tenderness to the left trapezius centrally. Left shoulder is nontender. He has full range of motion of the left shoulder. No pain palpated in the left upper extremity. Resp normal respiratory effort and clear to auscultation bilaterally Cardio regular rhythm Rate: regular rate Extremity normal to inspection and full ROM Neuro oriented x3 and CN's II-XII intact bilaterally Sensorium / Orientation: alert Skin no rashes or lesions noted and No no jaundice MDM MDM MDM Narrative Medical decision making narrative: Patient presenting with pain in the trapezius that radiates to the left side of his arm. It does not radiate into the hand. Patient given Toradol and Norflex IM. I obtained x-rays of the cervical spine which on my interpretation show no fracture or subluxation. The radiologist reads this as minimal disc narrowing at C5-C6. Patient felt improved with treatment. He is given Naprosyn and Zanaflex for home. Patient will follow up with PCP to resolution. Impression: 1. Cervical strain Radiography Diagnostic Testing: Clinical Impression(s) from Imaging Studies Cervical Spine X-Ray 12/18/21 08:03 IMPRESSION: Minimal narrowing of the C5-C6 disc space height otherwise negative cervical spine radiographs. Electronically Signed: Db Garcia MD at 8:40 EDT , Discharge Plan Triage Chief Complaint: Other, Pain/Inj ED Provider: Tani Merida Dx/Rx/DC Orders Instructions: Radiculopathy Cervical Prescriptions: New tizanidine [Zanaflex] 4 mg tablet 4 mg PO QHS PRN (Reason: muscle spasticity) Qty: 14 RF: 0 naproxen [Naprosyn] 500 mg tablet 500 mg PO BID PRN (Reason: pain) Qty: 20 RF: 0 No Action pantoprazole [Protonix] 40 mg tablet,delayed release (DR/EC) 40 mg PO DAILY Qty: 30 RF: 0 Stand Alone Forms: ED Work / School Excuse Primary Care Provider: Aristides Black Referrals: Aristides Black PA [Primary Care Provider] - Disposition Disposition: Home, Self Care Discharge Date/Time: 12/18/21 10:01 What to do if you have Problems For any increased pain, shortness of breath, bleeding, nausea or vomiting, chest pain, or any unexpected problems, contact your Primar (more content not included)... Normal [facility] XR ANKLE AND FOOT [address] [facility] 03-24-2021 XR ANKLE AND FOOT 6 VIEWS LEFT ORIGINAL XR ANKLE AND FOOT 6 VIEWS LEFT CLINICAL STATEMENT: pain. COMPARISON: Left ankle radiograph 04/13/2017 FINDINGS: No acute fracture. Accessory ossicle or tiny remote fracture fragment adjacent to the distal fibula is unchanged. Normal alignment. Ankle mortise and talar dome are intact. Bipartite medial first proximal interphalangeal joint sesamoid. Normal bony mineralization. No suspicious osseous lesion. No radiopaque foreign body. IMPRESSION: No acute fracture or dislocation. I have personally reviewed the images of this examination and agree with the resident's findings and interpretation. Interpreted By: Corey Atkinson MD Preliminary Report By: Jefry King MD Electronically Signed By: Corey Atkinson MD Dictated Date: 2021 9:08:58 PM Prelim Date: 2021 9:12:38 PM Sign Date: 2021 10:06:39 PM Ordering Provider:Brett Seay [facility] ([place]) Vital Signs Date Time Vital Sign Value Performing Clinician Facility 05-07-2022 10:08-0400 Body temperature 98.01 [degF] NA Black PA-C Work Phone: [facility] 05-07-2022 10:08-0400 Body weight 65.32 kg NA Black PA-C Work Phone: [facility] 05-07-2022 10:08-0400 Diastolic blood pressure 66 mm[Hg] NA Black PA-C Work Phone: [facility] 05-07-2022 10:08-0400 Heart rate 71 /min NA Black PA-C Work Phone: [facility] 05-07-2022 10:08-0400 Respiratory rate 16 /min NA Black PA-C Work Phone: [facility] [facility] 05-07-2022 10:08-0400 SaO2% (BldA) [Mass fraction] 98 % NA Black PA-C Work Phone: [facility] 05-07-2022 10:08-0400 Systolic blood pressure 118 mm[Hg] NA Black PA-C Work Phone: [facility] 02-18-2022 15:21-0400 Body temperature 98.4 [degF] PA NA Black PA Work Phone: [facility] Work Phone: 02-18-2022 15:21-0400 Diastolic blood pressure 73 mm[Hg] PA NA Black PA Work Phone: [facility] Work Phone: 02-18-2022 15:21-0400 Heart rate 78 /min PA NA Black PA Work Phone: [facility] Work Phone: 02-18-2022 15:21-0400 Respiratory rate 18 /min PA NA Black PA Work Phone: [facility] Work Phone: 02-18-2022 15:21-0400 SaO2% (BldA) [Mass fraction] 98 % PA NA Black PA Work Phone: [facility] Work Phone: 02-18-2022 15:21-0400 Systolic blood pressure 115 mm[Hg] PA NA Black PA Work Phone: [facility] Work Phone: 02-17-2022 13:08-0400 Body height 172.72 cm PA NA Black PA Work Phone: [facility] Work Phone: 02-17-2022 13:08-0400 Body mass index (BMI) [Ratio] 20.4 kg/m2 PA NA Black PA Work Phone: [facility] Work Phone: 02-17-2022 13:08-0400 Body weight 61 kg PA NA Black PA Work Phone: [facility] Work Phone: 02-02-2022 13:17-0400 Body weight 61.69 kg NA Black PA-C Work Phone: [facility] 02-02-2022 13:17-0400 Diastolic blood pressure 82 mm[Hg] NA Black PA-C Work Phone: [facility] 02-02-2022 13:17-0400 Heart rate 118 /min NA Black PA-C Work Phone: [facility] 02-02-2022 13:17-0400 Respiratory rate 16 /min NA Black PA-C Work Phone: [facility] 02-02-2022 13:17-0400 SaO2% (BldA) [Mass fraction] 98 % NA Black PA-C Work Phone: [facility] 02-02-2022 13:17-0400 Systolic blood pressure 138 mm[Hg] NA Black PA-C Work Phone: [facility] 01-09-2022 08:31-0400 Body height 172.72 cm PA NA Black PA Work Phone: [facility] Work Phone: 01-09-2022 08:31-0400 Body mass index (BMI) [Ratio] 19.9 kg/m2 PA NA Black PA Work Phone: [facility] Work Phone: 01-09-2022 08:31-0400 Body weight 59.42 kg PA NA Black PA Work Phone: [facility] Work Phone: 01-01-2022 16:57-0400 Body weight 60.33 kg NA Black PA-C Work Phone: [facility] 01-01-2022 16:57-0400 Diastolic blood pressure 84 mm[Hg] NA Black PA-C Work Phone: [facility] 01-01-2022 16:57-0400 Heart rate 116 /min NA Black PA-C Work Phone: [facility] 01-01-2022 16:57-0400 SaO2% (BldA) [Mass fraction] 97 % NA Black PA-C Work Phone: [facility] 01-01-2022 16:57-0400 Systolic blood pressure 130 mm[Hg] NA Black PA-C Work Phone: [facility] 12-26-2021 11:12-0400 Body weight 60.33 kg NA Black PA-C Work Phone: [facility] 12-26-2021 11:12-0400 Diastolic blood pressure 80 mm[Hg] NA Black PA-C Work Phone: [facility] 12-26-2021 11:12-0400 Heart rate 116 /min NA Black PA-C Work Phone: [facility] 12-26-2021 11:12-0400 SaO2% (BldA) [Mass fraction] 100 % NA Black PA-C Work Phone: [facility] 12-26-2021 11:12-0400 Systolic blood pressure 148 mm[Hg] NA Black PA-C Work Phone: [facility] 12-18-2021 07:28-0400 Body height 172.72 cm [facility] Work Phone: 12-18-2021 07:28-0400 Body mass index (BMI) [Ratio] 19.8 kg/m2 [facility] Work Phone: 12-18-2021 07:28-0400 Body temperature 97.1 [degF] [facility] Work Phone: 12-18-2021 07:28-0400 Body weight 58.96 kg [facility] Work Phone: 12-18-2021 07:28-0400 Diastolic blood pressure 82 mm[Hg] [facility] Work Phone: 12-18-2021 07:28-0400 Heart rate 71 /min [facility] Work Phone: 12-18-2021 07:28-0400 Respiratory rate 16 /min [facility] Work Phone: 12-18-2021 07:28-0400 SaO2% (BldA) [Mass fraction] 99 % [facility] Work Phone: 12-18-2021 07:28-0400 Systolic blood pressure 152 mm[Hg] [facility] Work Phone: Encounters Encounter Date Encounter Type Care Provider Facility Start: 03-18-2023 Telephone encounter Juliana alanis PA-C Work Phone: Orthopaedics Comment on above: Patient Question (Ne alexisg FMLA paperwork) Start: 03-01-2023 End: 03-01-2023 ambulatory Juliana Darekvitz PA-C Work Phone: Orthopaedics Comment on above: Work release Start: 03-01-2023 End: 03-01-2023 Patient encounter procedure Juliana Vetovitz PA-C Work Phone: Orthopaedics Comment on above: Left hand pain (Prim jaycee Dx); Fall down stairs, subsequent encounter Start: 02-16-2023 End: 02-16-2023 ambulatory [facility] Facility:[facility] Start: 02-16-2023 End: 02-17-2023 ambulatory Aristides SIEGELON Facility:[facility] Start: 02-16-2023 End: 02-16-2023 Subsequent hospital visit by physician [facility] Work Phone: Radiology Comment on above: Fall, initial encoun ter [W19.XXXA] Start: 05-18-2022 End: 05-18-2022 ambulatory Aristides BLACK Facility:[facility] Start: 05-11-2022 Telephone encounter Aristides PISANO-Michaela Work Phone: [facility] [place] Comment on above: Results Start: 05-08-2022 Telephone encounter Aristides Jeyson QUINONEZC Work Phone: [facility] Comment on above: Orders Start: 05-07-2022 End: 05-07-2022 ambulatory Aristides BLACK Facility:[facility] Start: 05-07-2022 End: 05-07-2022 Patient encounter procedure Aristides Jeyson PISANO-C Work Phone: [facility] Comment on above: RUQ abdominal pain ( Primary Dx) Start: 02-18-2022 Non-patient / Non-visit PA NA Black PA Work Phone: [facility] Start: 02-18-2022 Non-patient / Non-visit PA NA Black PA Work Phone: [facility] Start: 02-17-2022 Non-patient / Non-visit PA NA Black PA Work Phone: [facility] Start: 02-17-2022 Non-patient / Non-visit PA NA Black PA Work Phone: [facility] Start: 02-17-2022 End: 02-18-2022 Evaluation and management of inpatient PA NA Black PA Work Phone: [facility] 3 Start: 02-16-2022 Non-patient / Non-visit PA NA Black PA Work Phone: [facility] Start: 02-11-2022 End: 02-11-2022 Patient encounter procedure PA NA Black PA Work Phone: [facility] Start: 02-02-2022 End: 02-02-2022 Patient encounter procedure Aristides Jeyson PISANO-C Work Phone: [facility] Comment on above: Cervical radiculitis (Primary Dx) Start: 02-02-2022 End: 02-02-2022 Patient encounter procedure PA NA Black PA Work Phone: [facility] Start: 01-28-2022 End: 01-28-2022 Patient encounter procedure ALIYA PISANO Work Phone: [facility] Start: 01-09-2022 Telephone encounter Aristides PISANO-C Work Phone: [facility] Comment on above: Forms Start: 01-09-2022 End: 01-09-2022 Patient encounter procedure ALIYA PISANO Work Phone: [facility] Start: 01-08-2022 End: 01-08-2022 OT/PT/Speech Visit Pietro Chi PT Work Phone: [facility] Comment on above: Cervical disc disord er at C6-C7 level with radiculopathy (Primary Dx); Foraminal stenosis of cervical region Start: 01-05-2022 Telephone encounter Wade Bolden DO Work Phone: Cat Scan Comment on above: disc request Start: 01-01-2022 End: 01-01-2022 Patient encounter procedure Aristides PISANO-C Work Phone: [facility] Comment on above: Foraminal stenosis o f cervical region (Primary Dx); Radiculitis of left cervical region Start: 01-01-2022 End: 01-01-2022 OT/PT/Speech Visit Pietro Chi PT Work Phone: [facility] Comment on above: Cervical disc disord er at C6-C7 level with radiculopathy (Primary Dx); Foraminal stenosis of cervical region Start: 12-29-2021 Refill Aristides green PA-C Work Phone: [facility] Comment on above: Refill Request Start: 12-26-2021 Telephone encounter Aristides Black PA-C Work Phone: [facility] Comment on above: Orders Start: 12-26-2021 End: 12-26-2021 Patient encounter procedure Aristides PISANO-C Work Phone: [facility] Comment on above: Cervical disc disord er at C6-C7 level with radiculopathy (Primary Dx); Foraminal stenosis of cervical region Start: 12-24-2021 Telephone encounter Aristides Marcos Wayne BURGOS Work Phone: [facility] Comment on above: Results Start: 12-18-2021 End: 12-18-2021 Emergency department patient visit [facility] Start: 09-18-2017 End: 09-18-2017 Emergency department patient visit Darrell Sharma Alhaji Facility:[facility] Procedures Date Procedure Procedure Detail Performing Clinician Start: 02-16-2023 Radex spine cervical 4 or 5 views Marsha Sharpe APRN.CNP Work Phone: Start: 02-17-2022 Radiography of spine PA LINK PISANO Work Phone: Start: 02-17-2022 End: 02-17-2022 Radiography of spine PA LINK PISANO Work Phone: Start: 02-17-2022 Cervical arthrodesis by anterior technique PA LINK PISANO Work Phone: Start: 02-12-2022 Nasal Screen MRSA/MSSA PA LINK PISANO Work Phone: Start: 01-28-2022 X-ray of eye for for eign body PA LINK PISANO Work Phone: Start: 01-28-2022 MRI of cervical spine P A LINK PISANO Work Phone: Start: 12-18-2021 X-ray of cervical spine Start: 12-18-2021 Adult depression scr eening assessment LINK Black PA-C Work Phone: Plan of Treatment Date Care Activity Detail Author Start: 02-16-2033 Urine microalbumin profile [facility] Start: 04-06-2026 Urine microalbumin profile DTAP,TDAP,TD (2 - Td or Tdap) [facility] Start: 05-28-2024 Covid-19 Vaccine () Covid-19 Vaccine () [facility] Start: 05-28-2024 Influenza vaccination Influenza Vacc ine (#1) [facility] Start: 05-28-2023 Influenza vaccination INFLUENZ A (Season Ended) [facility] Start: 01-01-2023 COVID-19 VACCINE (#1) COVID-19 VACCI NE (#1) [facility] Comment on above: Postponed from 03/23 (Declined at this time) Postponed from 09/22 (Declined at this time) Start: 01-01-2023 COVID-19 VACCINE (1) COVID-19 VACCIN E (1) [facility] Comment on above: Postponed from 03/23 (Declined at this time) Start: 01-01-2023 HEPATITIS C SCREENING HEPATITIS C SC MAITE [facility] Comment on above: Postponed from 03/23 (Declined at this time) Start: 01-01-2023 HIV SCREENING HIV SCREENING [facility] Comment on above: Postponed from 03/23 (Declined at this time) Start: 01-01-2023 ONE PNEUMOVAX PRIOR TO AGE 65 ONE PNEUMOVAX PRIOR TO AGE 65 [facility] Comment on above: Postponed from 03/23 (Declined at this time) Start: 01-01-2023 PNEUMOCOCCAL (1 - PCV) PNEUMOCOCCAL (1 - PCV) [facility] Comment on above: Postponed from 03/23 (Declined at this time) Start: 12-18-2022 Adult depression screening assessment DEPRESSION SCREENING [facility] Start: 09-27-2022 DEPRESSION ASSESSMENT DEPRESSION ASS ESSMENT [facility] Start: 05-28-2022 Influenza vaccination C [facility] Start: 05-08-2022 End: 07-08-2022 ALK PHOS ISOENZYM BL ALK PHOS ISOENZYM BL Lab Routine RUQ abdominal pain Elevated alkaline phosphatase level Expected: 05/08/2022, Expires: 07/08/2022 [facility] Work Phone: Comment on above: Expected: 05/08/2022 , Expires: 07/08/2022 Start: 05-08-2022 End: 07-08-2022 Hepatic function 2000 panel - Serum or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 06/02/2022 [facility] PHYSICAL THERAPY DISCONTINUANCE OF CARE Plan of Care Period: Start of Care Date: 01/01/22 Last Visit Date: 01/08/2022 Therapy Program: The following is a summary of the interventions provided for this episode of care; Therapeutic exercise, Manual therapy, and Self-residential management Assessment: Based on most recent visit, patient was progressing slower than expected toward functional goals based on pain levels. Unable to formally assess goal achievement, as patient has not returned to therapy or scheduled additional follow-up appointments. Reason for Discontinuation of Care: Patient has not returned to therapy or scheduled additional follow-up appointments. Pietro Chi, PT [facility] 05-18-2022 Note HNO ID: [id number] Author: RT Jb(R) Service: ? Author Type: Factory Helper Type: Progress Notes Filed: 05/18/2022 4:35 PM Note Text: Radiology Service Progress Note PATIENT NAME: Ramos Ruggiero DATE OF SERVICE: May 18, 2022 TIME: 4:34 PM PATIENT IDENTITY VERIFICATION COMPLETED USING TWO (2) IDENTIFIERS: Name and Date of confirmed by patient verbally. FALL SCREENING: Has the patient had 2 falls in the last year or 1 fall with injury or currently using an Ambulatory Assistive Device (Walker, Cane, Wheelchair, Crutches, etc.)? No PATIENT GENDER DATA: Male PATIENT RELEVANT IMPLANT DATA REVIEWED: Not Applicable RADIOLOGY DEPARTMENT: Ultrasound PERIPHERAL IV DATA: Not applicable SIGNED BY: RT Jb(R) May 18, 2022 4:[address] [facility] 05-11-2022 Miscellaneous Notes Called regarding patient questions, left message. See myc message. Johnny Olivo PA-C documented in this encounter [facility] 05-08-2022 Miscellaneous Notes See mychart Recheck labs in next week Telephone on 05/08/22 ALK PHOS ISOENZYM BL HEPATIC FUNCTION PNL Johnny Black PA-C documented in this encounter [facility] 05-07-2022 Note HNO ID: [id number] Author: Aristides Black PA-C Service: ? Author Type: Physician Tube Bending Machine Operator Type: Progress Notes Filed: 05/07/2022 11:04 AM Note Text: 32 year old male with c/o pain in right upper stomach indicating lateral upper right. Annoying , gnawing, dull pain. Comes and goes, 5-10 minutes and a few hours later recurrent. No heartburn or acid reflux. No nausea or vomiting. Light yellow colored stool, no change in pattern otherwise Hx right inguinal hernia, no other surgeries. Rare use NSAIDS. ETOH 2 beers a day, 12 pk on Wednesday PGF cirrhosis. No Fh IBD or colorectal cancer Doing well following cervical laminectomy. Only pain at surgical site: very happy with results. This was first week back to work. HISTORIES FAMILY HISTORY Problem Relation Age of Onset Emphysema Father Hypertension Father other (lung mass) Father unsure if it is cancer Heart Maternal Grandmother Osteoporosis Maternal Grandmother Heart Failure Maternal Grandfather Emphysema Paternal Grandmother other (cirrhosis) Paternal Grandfather Hypertension Mother PAST MEDICAL HISTORY Diagnosis Date NEGATIVE MEDICAL HISTORY PAST SURGICAL HISTORY Procedure Laterality Date EXTRACTION ERUPTED TOOTH/EXR 09/2019 RPR 1ST INGUN HRNA AGE 5 YRS/> REDUCIBLE 11/14/2019 Hernia repair, inguinal Social History Tobacco Use Smoking status: Every Day Packs/day: 0.50 Years: 11.00 Pack years: 5.50 Types: Cigarettes Start date: 11/02/2008 Smokeless tobacco: Never Vaping Use Vaping Use: Never used Substance Use Topics Alcohol use: Yes Alcohol/week: 15.0 - 30.0 standard drinks Types: 6 - 12 Cans of Beer (12oz) per week Comment: every weekend Drug use: Never ACTIVE PROBLEM LIST Cervical Disc Disorder At C6-C7 Level With Radiculopathy Foraminal Stenosis of Cervical Region Current Outpatient Medications Medication Sig Dispense Refill gabapentin (NEURONTIN) 300 mg capsule Take 1 capsule by mouth three times daily for 90 days. [address] (PROTONIX) 20 mg tablet Take 1 tablet by mouth daily before breakfast. Take on empty stomach, 1/2 hr before meal. (Patient not taking: Reported on 05/07/2022) 30 tablet 1 No current facility-administered medications for this visit. HEPATITIS B(1 of 3 - 3-dose series) Never done EXAM: BP 118/66 Pulse 71 Temp 36.7 ?C (98 ?F) (Tympanic) Resp 16 Wt 65.3 kg (144 lb) SpO2 98% BMI 21.90 kg/m? Pleasant well appearing young man in no acute distress. Alert and oriented all spheres. Normal affect and cognition. Speech normal. No deficits to learning or comprehension. Skin warm, dry, pink to lips and nailbeds. Normal turgor. Respirations regular and unlabored. HEENT: NCAT. No scleral icterus or conjunctival injection. TM's clear. Nose and oropharynx free from injection or lesion. Oral membranes moist and pink. No cervical lymph nodes. Thyroid non-tender, no masses, or enlargement. Carotids pulses 2+/4+ without bruits. Chest is normal shape. Lungs are clear to all oliva with good air exchange through out. HRRR without murmur or gallop. No lifts, heaves, or rubs. Abdomen: active bowel sounds throughout, soft, nontender, no masses or organomegaly. No CVAT. No inguinal nodes or pulsatile masses. Extrem: no clubbing or cyanosis. Edema: none. Extremities are warm and pink with prompt capillary refill. ASSESSMENT/PLAN: 1. RUQ abdominal pain - ICD9: 789.01, ICD10: R10.11 Cut ETOH - CBC + DIFF - COMP METABOLIC PANEL - LIPASE BLD - US ABD RT UPPER QUADRANT Soft,bland diet, Cut back on ETOH- discussed risks of more than 7-10 per week. F/u after results Aristides Black PA-C [facility] 05-07-2022 Instructions Aristides Black PA-C - 05/07/2022 10:36 AM EDT Try to cut back on alcohol to half at least. Soft , bland diet with avoidance of fatty foods particularly. If any severe pain, vomiting, fever: go to ER documented in this encounter [facility] 05-07-2022 History of Presen t illness Narrative 32 year old male with c/o pain in right upper stomach indicating lateral upper right. Annoying , gnawing, dull pain. Comes and goes, 5-10 minutes and a few hours later recurrent. No heartburn or acid reflux. No nausea or vomiting. Light yellow colored stool, no change in pattern otherwise Hx right inguinal hernia, no other surgeries. Rare use NSAIDS. ETOH 2 beers a day, 12 pk on Wednesday PGF cirrhosis. No Fh IBD or colorectal cancer Doing well following cervical laminectomy. Only pain at surgical site: very happy with results. This was first week back to work. HISTORIES FAMILY HISTORY Problem Relation Age of Onset Emphysema Father Hypertension Father other (lung mass) Father unsure if it is cancer Heart Maternal Grandmother Osteoporosis Maternal Grandmother Heart Failure Maternal Grandfather Emphysema Paternal Grandmother other (cirrhosis) Paternal Grandfather Hypertension Mother PAST MEDICAL HISTORY Diagnosis Date NEGATIVE MEDICAL HISTORY PAST SURGICAL HISTORY Procedure Laterality Date EXTRACTION ERUPTED TOOTH/EXR 09/2019 RPR 1ST INGUN HRNA AGE 6 YRS/> REDUCIBLE 11/14/2019 Hernia repair, inguinal Social History Tobacco Use Smoking status: Every Day Packs/day: 0.50 Years: 11.00 Pack years: 5.50 Types: Cigarettes Start date: 11/02/2008 Smokeless tobacco: Never Vaping Use Vaping Use: Never used Substance Use Topics Alcohol use: Yes Alcohol/week: 15.0 - 30.0 standard drinks Types: 6 - 12 Cans of Beer (12oz) per week Comment: every weekend Drug use: Never ACTIVE PROBLEM LIST Cervical Disc Disorder At C6-C7 Level With Radiculopathy Foraminal Stenosis of Cervical Region Current Outpatient Medications Medication Sig Dispense Refill gabapentin (NEURONTIN) 300 mg capsule Take 1 capsule by mouth three times daily for 90 days. [address] (PROTONIX) 20 mg tablet Take 1 tablet by mouth daily before breakfast. Take on empty stomach, 1/2 hr before meal. (Patient not taking: Reported on 05/07/2022) 30 tablet 1 No current facility-administered medications for this visit. HEPATITIS B(1 of 3 - 3-dose series) Never done EXAM: BP 118/66 Pulse 71 Temp 36.7 C (98 F) (Tympanic) Resp 16 Wt 65.3 kg (144 lb) SpO2 98% BMI 21.90 kg/m Pleasant well appearing young man in no acute distress. Alert and oriented all spheres. Normal affect and cognition. Speech normal. No deficits to learning or comprehension. Skin warm, dry, pink to lips and nailbeds. Normal turgor. Respirations regular and unlabored. HEENT: NCAT. No scleral icterus or conjunctival injection. TM's clear. Nose and oropharynx free from injection or lesion. Oral membranes moist and pink. No cervical lymph nodes. Thyroid non-tender, no masses, or enlargement. Carotids pulses 2+/4+ without bruits. Chest is normal shape. Lungs are clear to all oliva with good air exchange through out. HRRR without murmur or gallop. No lifts, heaves, or rubs. Abdomen: active bowel sounds throughout, soft, nontender, no masses or organomegaly. No CVAT. No inguinal nodes or pulsatile masses. Extrem: no clubbing or cyanosis. Edema: none. Extremities are warm and pink with prompt capillary refill. ASSESSMENT/PLAN: 1. RUQ abdominal pain - ICD9: 789.01, ICD10: R10.11 Cut ETOH - CBC + DIFF - COMP METABOLIC PANEL - LIPASE BLD - US ABD RT UPPER QUADRANT Soft,bland diet, Cut back on ETOH- discussed risks of more than 7-10 per week. F/u after results Aristides Black PA-C documented in this encounter [facility] 02-18-2022 Note [facility] Medical Records Department [address] [place] [address] Discharge Summary 02/18/22 1304 MR#: [id number] Acct: [id number] Name: RAMOS RUGGIERO [place] Rep #: [id number] : 1990 31 From: Oswaldo Snyder DO PCP: ALIYA Zee Status:ADM ANDRE Location: MS3 [id number] Providers Date of Admission: 02/17/22 Primary Care Physician: ALIYA Zee Consultations 02/17/22 12:52 Consult: Hospitalist Routine Consulting Provider: Kaya Yepez Reason for Consult: med management EMERGENT Consult: No MD Notified: Yes Date Notified: 02/17/22 Time Notified: 13:12 Method of Notification: Text Reason For Visit: ANTERIOR CERVICAL FUSION Diagnosis Discharge Diagnosis (1) Herniated nucleus pulposus, C5-6 left: Status: Acute Code(s): M50.222 - Other cervical disc displacement at C5-C6 level (2) Herniated nucleus pulposus, C6-7 left: Status: Acute Code(s): M50.223 - Other cervical disc displacement at C6-C7 level Medications at Discharge Home Medications cyclobenzaprine 10 mg PO TID PRN 02/09/22 naproxen 500 mg PO BID 02/09/22 Hospital Course Summary of Care Provided Hospital Course: This patient was admitted yesterday. He underwent anterior cervical fusion at the C6-7 level. He tolerated the procedure well. Today he reports his his left arm pain is completely gone. His tricep strength has increased. His voice is clear. He has no Carl syndrome. Change the dressing and remove the drain. Incision is dry and healing well. I gave him directions regarding his activities. He is also to make an appointment 1 week from to see me in the office. He is given oxycodone 01/27/2025's for pain #40. Weight / BMI Weight Weight: 134 lb 7.712 oz Body Mass Index (BMI) 20.4 ABG / Lab / Microbiology Data Result Diagrams: 02/18/22 05:06 02/18/22 05:06 Laboratory: Laboratory Results - last 24 hr 02/18/22 05:06: WBC 16.2 H, RBC 4.09 L, Hgb 13.3, Hct 38.6 L, MCV 94.4 H, MCH 32.5 H, MCHC 34.5, RDW Std Deviation 49.2 H, RDW Coeff of Pippa 14.1, Plt Count 230, MPV 10.0, Immature Gran % (Auto) 0.700, Neut % (Auto) 87.7 H, Lymph % (Auto) 5.3 L, [place] % (Auto) 6.2, Eos % (Auto) 0.0, Baso % (Auto) 0.1, Absolute Neuts (auto) 14.2 H, Absolute Lymphs (auto) 0.86, Nucleated RBC % 0 02/18/22 05:06: Sodium 138, Potassium 4.1, Chloride 106, Carbon Dioxide 26.0, Anion Gap 6, BUN 7, Creatinine 0.55 L, Estim Creat Clear Calc 169.44, Est GFR (MDRD) Af Amer 223, Est GFR (MDRD) Non-Af 184, BUN/Creatinine Ratio 12.7, Glucose 147 H, Calcium 8.7, Total Bilirubin 0.70, AST 25, ALT 36, Alkaline Phosphatase 92, Total Protein 6.4, Albumin 3.4, Globulin 3.0, Albumin/Globulin Ratio 1.1 Microbiology: Microbiology 02/12/22 09:28 Swab (Method) Nasal Screen MRSA/MSSA - Final Radiography Diagnostic Testing: Radiology Impression Spine X-Ray 02/17/22 10:15 IMPRESSION: Spinal fixation hardware noted in the spine at C6-7. There is/ are disc spacer(s) in place. Electronically Signed: Pietro Nath MD at 16:49 EDT Reading Location ID and State: [facility] / [place] , Service support , Meaningful Use Info Meaningful Use Diagnoses (Choose all that apply): None applicable Discharge Plan Admission Admit Date/Time: 02/17/22 07:29 Primary Reason for Your Visit: cervical fusion Attending Provider: Oswaldo Snyder Primary Care Provider: Aristides Black Consulting Providers: Kaya Yepez Discharge Orders/Prescriptions Prescriptions: No Action cyclobenzaprine 10 mg Tablet 10 mg PO TID PRN (Reason: Pain) RF: 0 naproxen 500 mg Tablet,Delayed Release (Dr/Ec) 500 mg PO BID RF: 0 Referrals / Follow Up: Aristides Black PA [Primary Care Provider] - Disposition Disposition (needs filled in before D/C Order can be placed): Home, Self Care 02/18/22 1306 Cosigner Signature (if applicable): CC: ALIYA Black; Dr. Oswaldo Snyder DO Signed [facility] 02-16-2022 Note [facility] Medical Records Department [address] [place] [address] History Physical Exam 02/16/22 1418 MR#: [id number] Acct: [id number] Name: RAMOS RUGGIERO Rep #: [id number] : 1990 31 From: Oswaldo Snyder DO PCP: ALIYA Zee Status:PRE SD Location: [facility] History and Physical Date of Admission: 02/16/22 Wo Intake Vital Signs 01/09/22 08:31 Height 5 ft 8 in Weight: 131 lb BMI 19.9 Intake Visit Reasons: CERVICAL SPINE Allergies No Known Allergies Allergy (Verified 01/09/22 08:37) PFSH Medical History Neck ache Social History Smoking Status: Current every day smoker tobacco type: cigarettes HPI CERVICAL SPINE Details: Parts of this documentation were recorded by a scribe, this documentation accurately reflects the service provided and the decisions made by me, Dr. Oswaldo Snyder, 01/09/22 0829. RAMOS RUGGIERO is a 31 year old M NEW Pt here today for neck pain. Pt states 3 weeks ago he was moving a heavy TV and noticed a gradual pain in his neck which worsened over a few days. Pt states pain is on the left side with a burning nerve pain down his left arm and numbness in his thumb, index, and middle fingers. Pt states he has gone to 2 sessions of PT. Pt denies any previous injuries, surgeries, or injections on neck. Pt has had x-rays and a CT scan which he brought the disc for today. 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 This means he has to look up all the time. Is been very difficult to do of late after 3 weeks ago when he had the problem start lifting the heavy television. He describes a perfect C6 dermatome. The patient's pain has been severe. Medrol Dosepak barely touched it. On examination he has positive Spurling's to the left. He has pain down the arm with extension of his cervical spine. He has some weakness of the extensors of the wrist on the left. However the strange thing is that he also has weakness of the triceps with atrophy of the triceps on the left as compared to the right suggesting that its not only C6 but possibly also C7 nerve root unless he has an anomalous innervation. He has no long tract signs. Clonus is absent Babinski's are downgoing. 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 This completely straightens up the neck. We will order an MRI scan of the cervical spine as soon as is reasonably possible. He has 2 neurological deficits including the C6 and C7 nerve roots. Note that I can easily overpower his left triceps. I will see him after the MRI scan. He will probably need surgical intervention. Incidentally I will review the CT scan that was ordered but an MRI is still necessary. Ortho Exam General General: Yes no acute distress Neurologic: Yes alert and Yes oriented x3 Psychologic: Yes reasonable and appropriate Coding Level of Care Code Off vis,new,level 3 Diagnoses Herniated nucleus pulposus, Time Spent (min) 30 Assessment and Plan Assessment and Plan (1) Herniated nucleus pulposus, 02/16/22 1420 Cosigner Signature (if applicable): CC: ALIYA Black; Dr. Oswaldo Snyder, Signed [facility] 02-02-2022 Instructions Aristides Black PA-C - 02/02/2022 1:46 PM EDT Please continue to avoid any heavy lifting, pushing, pulling or strain involving our neck or left arm and shoulder. Follow up with Dr. Oswaldo Snyder for further treatment. documented in this encounter [facility] 02-02-2022 History of Presen t illness Narrative 31 year old male with c/o here for follow up on cervical Has been evaluated by Dr. Oswaldo Snyder: Has recommended patient remain off work and is expediting surgery as soon as schedule permits. Using ice. 3-4 hours sleep at night. Tried OTC TENS unit which did help somewhat. Patient is avoiding heavy lifting or straining, finds daily activities frustrating due to aggravation with discomfort. Notes significant weakness in his left hand grasp and his ability to hold his children in the left arm. HISTORIES FAMILY HISTORY Problem Relation Age of Onset Emphysema Father Hypertension Father other (lung mass) Father unsure if it is cancer Heart Maternal Grandmother Osteoporosis Maternal Grandmother Heart Failure Maternal Grandfather Emphysema Paternal Grandmother other (cirrhosis) Paternal Grandfather Hypertension Mother PAST MEDICAL HISTORY Diagnosis Date NEGATIVE MEDICAL HISTORY PAST SURGICAL HISTORY Procedure Laterality Date EXTRACTION ERUPTED TOOTH/EXR 09/2019 RPR 1ST INGUN HRNA AGE 5 YRS/> REDUCIBLE 11/14/2019 Hernia repair, inguinal Social History Tobacco Use Smoking status: Current Every Day Smoker Packs/day: 0.50 Years: 11.00 Pack years: 5.50 Start date: 11/02/2008 Smokeless tobacco: Never Used Vaping Use Vaping Use: Never used Substance Use Topics Alcohol use: Yes Alcohol/week: 15.0 - 30.0 standard drinks Types: 6 - 12 Cans of Beer (12oz) per week Comment: every weekend Drug use: Never ACTIVE PROBLEM LIST Cervical Disc Disorder At C6-C7 Level With Radiculopathy Foraminal Stenosis of Cervical Region Current Outpatient Medications Medication Sig Dispense Refill gabapentin (NEURONTIN) 300 mg capsule Take 1 capsule by mouth three times daily for 90 days. 90 capsule 5 oxyCODONE-acetaminophen (PERCOCET) 5-325 mg tablet Take 1 tablet by mouth every 6 hours as needed for pain. 28 tablet 0 cyclobenzaprine (FLEXERIL) 10 mg tablet Take 1 tablet by mouth three times daily as needed for muscle spasm. [address] (PROTONIX) 20 mg tablet Take 1 tablet by mouth daily before breakfast. Take on empty stomach, 1/2 hr before meal. 30 tablet 1 No current facility-administered medications for this visit. There are no preventive care reminders to display for this patient. EXAM: BP 138/82 Pulse 118 Resp 16 Wt 61.7 kg (136 lb) SpO2 98% BMI 20.68 kg/m Pleasant well appearing adult in no acute distress. Alert and oriented all spheres. Normal affect and cognition. Speech normal. No deficits to learning or comprehension. Skin warm, dry, pink to lips and nailbeds. Normal turgor. Respirations regular and unlabored. Cervical exam: Continues to be tender particular on the left side with moderate spasm in lateral and cervical and shoulder muscles. Extrem: no clubbing or cyanosis. Edema: none. Extremities are warm and pink with prompt capillary refill. Hand grasp, opposition of the little finger to thumb, resistance to biceps flexion and triceps extension are all weaker on left than right. ASSESSMENT/PLAN: 1. Cervical radiculitis - ICD9: 723.4, ICD10: M54.12 Herniated disc affecting C5-6, C6-7 Records reviewed from neurosurgery: Recommending that he remain off work. Patient asked me to write a letter although he thinks there may be a letter actually written in the packet of information received from the neurosurgeon. Letter was written. - TRAMADOL 50 MG TABLET Aristides Black PA-C documented in this encounter [facility] 01-12-2022 Miscellaneous Notes TC to patient. Patient states the last 3 OV pertaining to neck with PCP & work note need to be faxed to number below. МАРИНА notes printed with work note. Faxed to . I believe I completed his forms before I left for vacation and they were placed on nursing desk. Thanks, Johnny Black PA-C Patient calls to verify that his short term disability forms were faxed (the 4 week update and any additional notes about the spine) to [place]. Patient reports fax number is if not already completed. Bre Flynn RN documented in this encounter [facility] 01-08-2022 History of Presen t illness Narrative Episode Visit Count: 2 Therapist That Will Oversee The Plan Of Care: Pietro Alon Start of Care Date: 01/01/22 Onset Date: 12/11/21 Plan of Care Certification Date: 01/01/22 Next Certification Due Date: 03/03/22 REHABILITATION AND SPORTS THERAPY PHYSICAL THERAPY TREATMENT NOTE ASSESSMENT: Ramos Ruggiero tolerated the session with no change in pain and no issues. He demonstrated difficulty with finding relief and management of pain/symptoms with any interventions throughout today's treatment. The patient will continue to benefit from ongoing skilled physical therapy to progress toward set goals. PLAN FOR NEXT VISIT: Assess what how pt.'s consultation went with - Continue to trial interventions for pain relief SUBJECTIVE: Patient Reason for Visit: Pt. reports fair and bad days. Unsure of positioning that makes the pain worse. Lifting brings on the most pain. Was picking up sticks in the yard and experienced severe pain on Lt. side. States his pain and symptoms are constant in the Lt. elbow, and numbness in the first 3 digits. Neck fabiana has been slightly better. Has consultation with tomorrow for possible neck surgery. Pain: Pain Pain Level: 6 Pain Location: Arm - Left;Hand - Left Description: Numbness;Tingling Post Treatment Pain Post Treatment Pain Level: No Change Post Treatment Symptoms: Neck is better, arm and elbow are about the same. OBJECTIVE MEASURES WITH LEVEL OF FUNCTION: Sharp, burning pain stayed in the elbow throughout treatment. Prolonged holds of both tractions exacerbated pain/sxs in the elbow. TREATMENT: Therapeutic Exercise: 1: Cervical Retraction Iso Holds 5 sec 1x10 2: Cervical Retractions 3x15 Skilled Intervention: Patient was educated in proper exercise technique and purpose for exercises. Skilled judgment was provided in selection of appropriate interventions. Correct performance of therapeutic exercises was facilitated with verbal, visual and tactile cuing. Manual Therapy: 1: Supine straight line cervical traction. 2: Supine, head off the edge, traction w/ retraction and posterior translation. 3: Nerve Glides & Tensioners Skilled Intervention: Manual skills to improve joint mobility, ROM, and decrease pain. Utilized anatomy knowledge of the therapist, and assessment of patient's response to intervention. Billing Therapeutic Exercise Treatment Minutes: 10 Manual TherapyTreatment Minutes: 14 Total Treatment Time Minutes (timed/untimed): 24 HANNA Redmond Supervising therapist was present and guided the care of the patient for the entire session on this date. All documentation was reviewed and agreed upon. Pietro Alon, PT documented in this encounter [facility] 01-05-2022 Miscellaneous Notes CD READY FOR NON DESTRUCTIVE TESTING SCIENTIST AT [facility] Patient requesting disk from 12/24/2021 cervical spine copied to a disk documented in this encounter [facility] 01-01-2022 Instructions M Jeyson Black PA-C - 01/01/2022 5:21 PM EDT Gabapentin (Patient Education - Adult Medication) You must carefully read the Consumer Information Use and Disclaimer below in order to understand and correctly use this information Pronunciation (GA ba samantha pratt) Brand Names: USGralise; Gralise Starter; Neurontin Brand Names: [place]ACT Gabapentin [DSC]; AG-Gabapentin; APO-Gabapentin; Auro-Gabapentin; BCI Gabapentin [DSC]; BIO-Gabapentin; DOM-Gabapentin; GD-Gabapentin; GLN-Gabapentin; JAMP-Gabapentin; Mar-Gabapentin; MYLAN-Gabapentin [DSC]; Neurontin; PHL-Gabapentin [DSC]; PMS-Gabapentin; Priva-Gabapentin; PRO-Gabapentin; RAN-Gabapentin; OTIS-Gabapentin; TARO-Gabapentin; TEVA-Gabapentin; VAN-Gabapentin [DSC] What is this drug used for? It is used to treat seizures. It is used to treat painful nerve diseases. It may be given to you for other reasons. Talk with the doctor. What do I need to tell my doctor BEFORE I take this drug? If you have an allergy to gabapentin or any other part of this drug. If you are allergic to any drugs like this one, any other drugs, foods, or other substances. Tell your doctor about the allergy and what signs you had, like rash; hives; itching; shortness of breath; wheezing; cough; swelling of face, lips, tongue, or throat; or any other signs. If you have kidney disease or are on dialysis. This is not a list of all drugs or health problems that interact with this drug. Tell your doctor and pharmacist about all of your drugs (prescription or OTC, natural products, vitamins) and health problems. You must check to make sure that it is safe for you to take this drug with all of your drugs and health problems. Do not start, stop, or change the dose of any drug without checking with your doctor. What are some things I need to know or do while I take this drug? Tell all of your health care providers that you take this drug. This includes your doctors, nurses, pharmacists, and dentists. Avoid driving and doing other tasks or actions that call for you to be alert until you see how this drug affects you. This drug may affect certain lab tests. Tell all of your health care providers and lab workers that you take this drug. Have blood work checked as you have been told by the doctor. Talk with the doctor. Talk with your doctor before you drink alcohol or use other drugs and natural products that slow your actions. This drug is not the same as gabapentin enacarbil (Horizant ). Do not use in its place. Talk with the doctor. A severe and sometimes deadly reaction has happened. Most of the time, this reaction has signs like fever, rash, or swollen glands with problems in body organs like the liver, kidney, blood, heart, muscles and joints, or lungs. If you have questions, talk with the doctor. Do not stop taking this drug all of a sudden without calling your doctor. You may have a greater risk of side effects. If you need to stop this drug, you will want to slowly stop it as ordered by your doctor. If you are 65 or older, use this drug with care. You could have more side effects. Use with care in children. Talk with the doctor. Tell your doctor if you are or plan on getting . You will need to talk about the benefits and risks of using this drug while you are . Tell your doctor if you are breast-feeding. You will need to talk about any risks to your baby. What are some side effects that I need to call my doctor about right away? WARNING/CAUTION: Even though it may be rare, some people may have very bad and sometimes deadly side effects when taking a drug. Tell your doctor or get medical help right away if you have any of the following signs or symptoms that may be related to a very bad side effect: Signs of an allergic reaction, like rash; hives; itching; red, swollen, blistered, or peeling skin with or without fever; wheezing; tightness in the chest or throat; trouble breathing, swallowing, or talking; unusual hoarseness; or swelling of the mouth, face, lips, tongue, or throat. Signs of liver problems like dark urine, feeling tired, not hungry, upset stomach or stomach pain, light-colored stools, throwing up, or yellow skin or eyes. Signs of kidney problems like unable to pass urine, change in how much urine is passed, blood in the urine, or a big weight gain. Trouble controlling body movements, twitching, change in balance, trouble swallowing or speaking. Memory problems or loss. Change in eyesight. Feeling confused. Shakiness. Shortness of breath, a big weight gain, or swelling in the arms or legs. Feeling very tired or weak. Not able to control eye movements. If seizures are worse or not the same after starting this drug. Any unexplained bruising or bleeding. Swollen gland. Fever or chills. Sore throat. Muscle pain or weakness. Not able to focus. Very bad dizziness or passing out. Patients who take this drug may be at a greater risk of having thoughts or actions of suicide. The risk may be greater in people who have had these thoughts or actions in the past. Call the doctor right away if signs like low mood (depression), nervousness, restlessness, grouchiness, panic attacks, or changes in mood or actions are new or worse. Call the doctor right away if any thoughts or actions of suicide occur. What are some other side effects of this drug? All drugs may cause side effects. However, many people have no side effects or only have minor side effects. Call your doctor or get medical help if any of these side effects or any other side effects bother you or do not go away: Dizziness. Feeling sleepy. Upset stomach or throwing up. Diarrhea. Dry mouth. Feeling tired or weak. These are not all of the side effects that may occur. If you have questions about side effects, call your doctor. Call your doctor for medical advice about side effects. You may report side effects to your national health agency. How is this drug best taken? Use this drug as ordered by your doctor. Read all information given to you. Follow all instructions closely. All products: Keep taking this drug as you have been told by your doctor or other health care provider, even if you feel well. To gain the most benefit, do not miss doses. If you are taking an antacid that has aluminum or magnesium in it, take this drug at least 2 hours after taking the antacid. Gralise: Take with the evening meal. Swallow whole. Do not chew, break, or crush. All other products: Take with or without food. Take with food if it causes an upset stomach. Capsules: Swallow whole with a full glass of water. Tablets: You may break the tablet in half. Do not chew or crush. If you break the tablet in half, use the other half of the tablet for the next dose, as told by the doctor. Throw away half-tablets not used within 28 days. Liquid (solution): Measure liquid doses carefully. Use the measuring device that comes with this drug. If there is none, ask the pharmacist for a device to measure this drug. What do I do if I miss a dose? Take a missed dose as soon as you think about it. If it is close to the time for your next dose, skip the missed dose and go back to your normal time. Do not take 2 doses at the same time or extra doses. How do I store and/or throw out this drug? Liquid (solution): Store in a refrigerator. Do not freeze. All other products: Store at room temperature. Store in a dry place. Do not store in a bathroom. All dose forms: Keep all drugs in a safe place. Keep all drugs out of the reach of children and pets. Throw away unused or drugs. Do not flush down a toilet or pour down a drain unless you are told to do so. Check with your pharmacist if you have questions about the best way to throw out drugs. There may be drug take-back programs in your area. General drug facts If your symptoms or health problems do not get better or if they become worse, call your doctor. Do not share your drugs with others and do not take anyone else's drugs. Keep a list of all your drugs (prescription, natural products, vitamins, OTC) with you. Give this list to your doctor. Talk with the doctor before starting any new drug, including prescription or OTC, natural products, or vitamins. Some drugs may have another patient information leaflet. If you have any questions about this drug, please talk with your doctor, nurse, pharmacist, or other health care provider. If you think there has been an overdose, call your poison control center or get medical care right away. Be ready to tell or show what was taken, how much, and when it happened. Last Reviewed Date 2017-12-31 Start with 300mg at bedtime and add second in the morning if you feel okay the next day. If you feel okay through the day, add the third dose at none and then three times a day. If you don't feel right on the medication, add the doses at a slower pace. documented in this encounter [facility] 01-01-2022 History of Presen t illness Narrative 31 year old male with c/o here for follow up Percocet 5-325 mg tablets has been effective for pain, patient only using at bedtime. During the day using Tylenol or ibuprofen. Much his first physical therapy session today and actually has had some improvement, is able to lift his head slightly more than previous. The goes past neutral position and extension has significant and severe pain down the left arm into his fingers with tingling. Not as anxious today, has been sleeping. Remains off work. HISTORIES FAMILY HISTORY Problem Relation Age of Onset Emphysema Father Hypertension Father other (lung mass) Father unsure if it is cancer Heart Maternal Grandmother Osteoporosis Maternal Grandmother Heart Failure Maternal Grandfather Emphysema Paternal Grandmother other (cirrhosis) Paternal Grandfather Hypertension Mother PAST MEDICAL HISTORY Diagnosis Date NEGATIVE MEDICAL HISTORY PAST SURGICAL HISTORY Procedure Laterality Date EXTRACTION ERUPTED TOOTH/EXR 09/2019 RPR 1ST INGUN HRNA AGE 5 YRS/> REDUCIBLE 11/14/2019 Hernia repair, inguinal Social History Tobacco Use Smoking status: Current Every Day Smoker Packs/day: 0.50 Years: 11.00 Pack years: 5.50 Start date: 11/02/2008 Smokeless tobacco: Never Used Vaping Use Vaping Use: Never used Substance Use Topics Alcohol use: Yes Alcohol/week: 15.0 - 30.0 standard drinks Types: 6 - 12 Cans of Beer (12oz) per week Comment: every weekend Drug use: Never ACTIVE PROBLEM LIST Cervical Disc Disorder At C6-C7 Level With Radiculopathy Foraminal Stenosis of Cervical Region Current Outpatient Medications Medication Sig Dispense Refill oxyCODONE-acetaminophen (PERCOCET) 5-325 mg tablet Take 1 tablet by mouth every 6 hours as needed for pain. 28 tablet 0 cyclobenzaprine (FLEXERIL) 10 mg tablet Take 1 tablet by mouth three times daily as needed for muscle spasm. [address] (PROTONIX) 20 mg tablet Take 1 tablet by mouth daily before breakfast. Take on empty stomach, 1/2 hr before meal. 30 tablet 1 No current facility-administered medications for this visit. There are no preventive care reminders to display for this patient. EXAM: BP 130/84 Pulse 116 Wt 60.3 kg (133 lb) SpO2 97% BMI 20.22 kg/m Pleasant well-appearing adult male, in no acute distress. Alert and oriented all spheres. Normal affect and cognition. Speech normal. No deficits to learning or comprehension. Skin warm, dry, pink to lips and nailbeds. Normal turgor. Respirations regular and unlabored. Patient has neck nearly at neutral however slight hyperextension as mentioned above causes severe radicular pain. Extrem: no clubbing or cyanosis. Edema: none. Extremities are warm and pink with prompt capillary refill. Motor strength is compromised on the left hand grasp 4 out of 5, again no specific sensory loss. ASSESSMENT/PLAN: 1. Foraminal stenosis of cervical region - ICD9: 723.0, ICD10: M48.02 (primary diagnosis) 2. Radiculitis of left cervical region - ICD9: 723.4, ICD10: M54.12 Patient has significant exercise: Advised no straining or activity that could potentially aggravate his neck. New work slip was provided off 4 weeks while we evaluate physical therapy and neurosurgical consults. See recent messages, alternatives for referral were provided Start gabapentin and titrate to tolerance up to 300 mg 3 times daily and then reevaluate. New medication administration, common side effects, box warnings reviewed with patient. - GABAPENTIN 300 MG CAPSULE Aristides Black PA-C documented in this encounter [facility] 01-01-2022 History of Presen t illness Narrative Episode Visit Count: 1 Therapist That Will Oversee The Plan Of Care: Pietro Chi Start of Care Date: 01/01/22 Onset Date: 12/11/21 Plan of Care Certification Date: 01/01/22 Next Certification Due Date: 03/03/22 Patient Identified by Name and Date of : Yes REHABILITATION AND SPORTS THERAPY PHYSICAL THERAPY EVALUATION PLAN OF CARE: Assessment: Ramos Ruggiero presents with diagnosis of cervical disc herniation at C6-C7 level with radiculopathy radiating down the arm to digits I, II, & III. Symptoms are most severe in the elbow. This interferes with working;sleeping;heavy exertion;lifting;physical activities;recreational activities;use hand with arm at shoulder level;pulling;pushing;carrying . He presents with impairments in ADL's, overall function, range of motion and sleep issues. PROMIS (Patient-Reported Outcomes Measurement Information System) scores were reviewed and physical function domain and self efficacy domain identified as within normal limits. Prognosis for therapy is Fair due to: clinical presentation;limited tolerance to activity . He will benefit from skilled therapy services to meet the goals established for this plan of care as noted below. Goals for Episode of Care: created on 01/01/22 through 02/26/22 [place] in home exercise program. Patient will decrease pain rating by 2 points to meet minimal clinical important difference for numeric pain rating scale. Patient will be able to complete active ROM of C-Spine without pain to allow pt to to improve performance of ADLs and restore functional mobility. Improve postural awareness. Improve self-management of symptoms. Drive with no aggravation of pain/symptoms. Sleep throughout the night without pain/symptoms. Maintain proper sitting posture throughout the session. Patient Goals: Get rid of the pain. Return to work. Planned Interventions, Frequency, and Duration: Current Frequency: 1x/week Duration: 4 weeks Total Number of Visits Planned: 4 Planned Treatment Interventions: Therapeutic exercise (33907);Neuromuscular re-education (26919);Manual therapy (02602);Therapeutic activities (91846);Self-residential management (03988);Patient/Family/Caregiver Education;Body Mechanics Training PLAN FOR NEXT VISIT: Find interventions that centralize the patients pain & symptoms. Patient demonstrates good understanding of plan of care and treatment. The above goals and plan of care were discussed and agreed upon by patient/family. SUBJECTIVE: Ramos Ruggiero is a 31 year old male seen today for Pt. reports ongoing worsening of cervical radiculopathy. Patient states three+ weeks ago, he was moving and was lifting/moving heavy furniture - pt. states he shouldn't have been lifting some things by himself and reports poor lifting mechanics and posture, he awoke the next morning with this pain and it has progressed ever since. CT scan revealed disc herniation C6-C7 level. Only thing that relieves the patients pain/symptoms is prescribed pain medicine. States his pain ranges from 6-8/10 on NRS continously. Patient had previous nerve compression symptoms a while back, but reports he didn't see anyone for it. Patient Goals: Get rid of the pain. Return to work. 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 Previous Treatment: Self prescribed exercises;Pain meds Spine History Symptoms Location at Onset: Neck Symptoms Since Onset: Worsening Sleeping Position: Supine Sleep Affected by Pain: Pain keeps from falling asleep;Pain awakens Pain: Pain Pain Level: 6 Pain Location: Neck - Left;Shoulder - Left;Elbow - Left;Wrist - Left;Hand - Left Description: Numbness;Tingling Frequency: Continuous PROMIS Scales Higher is Better 10/13/2019 12/18/2021 GH Physical - Score 57.7 61.9 (Excellent) GH Physical - Percentile 78 % 88 % GH Mental - Score 56 62.5 (Excellent) GH Mental - Percentile 73 % 89 % T-scores: mean of general population = 50. 5 points is clinically meaningfully difference Percentiles provide an indication of how the patient's score ranks in relation to the general population. Higher percentile rankings indicate better function/quality of life. 50th percentile is the average of the general population and indicates half of respondents had a worse score. T-scores: mean of general population = 50. 5 points is clinically meaningfully difference Percentiles provide an indication of how the patient's score ranks in relation to the general population. Higher percentile rankings indicate better function/quality of life. 50th percentile is the average of the general population and indicates half of respondents had a worse score. OBJECTIVE MEASURES WITH LEVEL OF FUNCTION: Posture / Alignment Posture: Forward head;Rounded shoulders;Slump Cervical Spine ROM Cervical ROM : Limitation AROM Cervical Flexion AROM: Increased pain;Minimal limitation Cervical Extension AROM: Minimal limitation;Increased pain Cervical Side-Bend Left AROM: Increased pain;Moderate limitation Cervical Rotation Right AROM: Normal Cervical Rotation Left AROM: Minimal limitation;Increased pain Upper Cervical AROM: Decreased due to pain. UE AROM R UE AROM: WNL L UE AROM: WNL UE and Cervical Strength Strength Tested: Myotome Cervical/Shoulder R Shoulder Shrug (C4): 5/5 R Shoulder Abduction (C5): 5/5 R Elbow Extension (C7): 5/5 R Elbow Flexion (C6): 5/5 R Wrist Extension: 5/5 R Wrist Flexion: 5/5 R Thumb Extension (C8): 5/5 R Finger Adduction/Interossei (T1): 5/5 L Shoulder Shrug (C4): 5/5 L Shoulder Abduction (C5): 5/5 L Elbow Extension (C7): 4+/5 (Painful) L Elbow Flexion (C6): 4+/5 (Painful) L Wrist Extension: 4+/5 (Painful) L Wrist Flexion: 4+/5 (Painful) L Thumb Extension (C8): 5/5 L Finger Adduction/Interossei (T1): 5/5 Special Tests - Cervical Cervical Special Tests: Cervical Compression;Spurling;Median Nerve;Radial Nerve;Ulnar Nerve Cervical Compression: Positive Spurling: Left Positive Median Nerve: Left Positive Ulnar Nerve: Left Positive Radial Nerve: Left Positive Education: Education Learning/educational needs: Safety;Home exercise program;Plan of Care;Changes in Plan of Care;Posture;Body Mechanics Education Provided: Yes, see treatment interventions for education provided Education Provided To: Patient TREATMENT: PT Treatment Interventions: Therapeutic Exercise;Manual Therapy;Self-Longterm Management Evaluation Therapeutic Exercise: 1: Prone Progression w/ Towel build up: x3 minutes/towel (2 towels total) (Ceased after 2nd towel due to pain) 2: * Cervical Retractions 1x10 Skilled Intervention: Patient was educated in proper exercise technique and purpose for exercises. Reviewed and educated patient on additions for home exercise program as above (*). Skilled judgment was provided in selection of appropriate interventions. Provided written instruction for home exercise program to facilitate proper performance and compliance. Correct performance of therapeutic exercises was facilitated with verbal, visual and tactile cuing. Manual Therapy: 1: Supine straight line cervical traction. 2: Supine, head off the edge, traction w/ retraction and posterior translation. Skilled Intervention: Manual skills to improve joint mobility, ROM, and decrease pain. Utilized anatomy knowledge of the therapist, and assessment of patient's response to intervention. Self-Longterm Management: 1: Discussion and education on POC, HEP, centralization vs. peripherization symptoms, disc anatomy and physiology. Skilled Intervention: Skilled judgment in the selection of proper modification for activity of daily living/home management based on clinical presentation, deficits, and needs. Educated the patient regarding recommendations and provided written instruction to facilitate compliance. Billing * Evaluation Moderate Complexity: 1 Unit Therapeutic Exercise Treatment Minutes: 12 Manual TherapyTreatment Minutes: 8 Self-Care/Home Management Treatment Minutes: 8 Total Treatment Time Minutes (timed and untimed codes) : 48 HANNA Redmond Supervising therapist was present and guided the care of the patient for the entire session on this date. All documentation was reviewed and agreed upon. Pietro Chi PT documented in this encounter [facility] 12-30-2021 Miscellaneous Notes Patient has appointment with PCP on 01/01/22, will discuss then. Leslie Venegas Ma I can't continue to fill percocet. He needs to space it out with Ibuprofen in between. ' He needs to see a spine surgeon. No appointment has been scheduled from consult 12/26/2021- this was supposed to be done as he left office. Please get this done as soon as possible. ER may be a good choice: he might be able to see a neurosurgeon quicker in a [facility] facility ER. The following approved medication requests have been transmitted electronically. Signed Prescriptions Disp Refills oxyCODONE-acetaminophen (PERCOCET) 5-325 mg tablet 28 tablet 0 Sig: Take 1 tablet by mouth every 6 hours as needed for pain. EDUIN Class: C-II KAMINI: No Authorizing Provider: Aristides BLACK PA-C Spoke with and patient. Both concern about patient's pain. Patient reports its the radiating pain down his arm to his fingers that's bad. Reports he ran out of pain medication today, and the percocet is the only thing that allows him to sleep. Reports he has only slept 1 hour in the last 2 days. Is using ice and heat. Aware ER is an option, but feels it's a waste of time, since it is known what is causing the pain. Please phone patient to let him know when refill is sent. Patient has been identified by name and date of : Yes Pending Prescriptions Disp Refills OXYCODONE-ACETAMINOPHEN 5 MG-325 MG TABLET 28 tablet 0 Sig: Take 1 tablet by mouth every 6 hours as needed for pain. EDUIN Class: C-II KAMINI: No RX INSTRUCTIONS: Patient aware RX will be sent to pharmacy. No need to notify patient. Rosa Sheldon documented in this encounter [facility] 12-26-2021 Miscellaneous Notes Please schedule PT- discussed with spine- felt he might benefit. Office Visit on 12/26/21 CONSULT TO PHYSICAL THERAPY Johnny Olivo PA-C documented in this encounter [facility] 12-26-2021 History of Presen t illness Narrative 31 year old male with c/o returns to discuss CT neck: didn't understand message With results. Reviewed CT with patient and structural components. Discussed risks and benefits of possible surgical intervention. HISTORIES FAMILY HISTORY Problem Relation Age of Onset Emphysema Father Hypertension Father other (lung mass) Father unsure if it is cancer Heart Maternal Grandmother Osteoporosis Maternal Grandmother Heart Failure Maternal Grandfather Emphysema Paternal Grandmother other (cirrhosis) Paternal Grandfather Hypertension Mother PAST MEDICAL HISTORY Diagnosis Date NEGATIVE MEDICAL HISTORY PAST SURGICAL HISTORY Procedure Laterality Date EXTRACTION ERUPTED TOOTH/EXR 09/2019 RPR 1ST INGUN HRNA AGE 5 YRS/> REDUCIBLE 11/14/2019 Hernia repair, inguinal Social History Tobacco Use Smoking status: Current Every Day Smoker Packs/day: 0.50 Years: 11.00 Pack years: 5.50 Start date: 11/02/2008 Smokeless tobacco: Never Used Vaping Use Vaping Use: Never used Substance Use Topics Alcohol use: Yes Alcohol/week: 15.0 - 30.0 standard drinks Types: 6 - 12 Cans of Beer (12oz) per week Comment: every weekend Drug use: Never There is no problem list on file for this patient. Current Outpatient Medications Medication Sig Dispense Refill oxyCODONE-acetaminophen (PERCOCET) 5-325 mg tablet Take 1 tablet by mouth every 6 hours as needed for pain. 28 tablet 0 predniSONE (DELTASONE) 10 mg tablet Take 4 tabs daily for 3 days, then 2 tabs daily for 3 days, then 1 tab daily for 3 days with food. 21 tablet 0 cyclobenzaprine (FLEXERIL) 10 mg tablet Take 1 tablet by mouth three times daily as needed for muscle spasm. [address] (PROTONIX) 20 mg tablet Take 1 tablet by mouth daily before breakfast. Take on empty stomach, 1/2 hr before meal. 30 tablet 1 No current facility-administered medications for this visit. COVID-19 VACCINE(1) Never done HEPATITIS C SCREENING Never done HIV SCREENING Never done DTAP,TDAP,TD(1 - Tdap) Never done ONE PNEUMOVAX PRIOR TO AGE 66 Never done EXAM: BP 148/80 Pulse 116 Wt 60.3 kg (133 lb) SpO2 100% BMI 20.22 kg/m Pleasant young man in no acute distress. Alert and oriented all spheres. Normal affect and cognition. Speech normal. No deficits to learning or comprehension. Skin warm, dry, pink to lips and nailbeds. Normal turgor. Respirations regular and unlabored. Continues with cervical flexion to alleviate pain. Any attempts to neutral cause pain down the left arm. + tingling in fingers but no measurable deficit in sensation. Extrem: no clubbing or cyanosis. Edema: none. Extremities are warm and pink with prompt capillary refill. ASSESSMENT/PLAN: 1. Cervical disc disorder at C6-C7 level with radiculopathy - ICD9: 722.91, 723.4, ICD10: M50.123 (primary diagnosis) 2. Foraminal stenosis of cervical region - ICD9: 723.0, ICD10: M48.02 Will schedule outstanding consult Off work 2 weeks, recheck at that time Will continue pain management weekly check in on my chart. Aristides Black PA-C documented in this encounter [facility] 12-24-2021 Miscellaneous Notes Patient returned call and went over results, notes from Johnny PISANO, patient still having difficulties understanding all of this. Patient has appt on 12/26 with Johnny to follow up will discuss further with him at his appt. TC to pt, left message to return call to office. Girish Cheatham LPN Please advise CT demonstrates left paracentral/foraminal disc protrusion at C6-C7 contributing to severe left foraminal narrowing. This is consistent with his symptoms. I will place consult to spine surgery if he wants to consider surgical decompression due to pain. There is no clear evidence favoring surgical intervention over conservative measures: neck brace, no heavy lifting, physical therapy, medications. In younger patients surgery initially shows greater benefit, but not after 2 years in studies. Telephone on 12/24/21 CONSULT TO SPINE SURGERY Johnny Olivo PA-C documented in this encounter [facility] Evaluation note No assessment inform ation available [facility] Work Phone: Evaluation note Diagnosis Foraminal stenosis of cervical region- Primary Spinal stenosis in cervical region [facility] Diagnosis Cervical disc disorder at C6-C7 level with radiculopathy- Primary Foraminal stenosis of cervical region Spinal stenosis in cervical region [facility] Diagnosis Cervical disc disorder at C6-C7 level with radiculopathy Cervicalgia [facility] Diagnosis Cervical disc disorder at C6-C7 level with radiculopathy- Primary Foraminal stenosis of cervical region Spinal stenosis in cervical region [facility] Diagnosis Foraminal stenosis of cervical region- Primary Spinal stenosis in cervical region Radiculitis of left cervical region Brachial neuritis or radiculitis nos documented [facility] Diagnosis Cervical disc disorder at C6-C7 level with radiculopathy- Primary Foraminal stenosis of cervical region Spinal stenosis in cervical region [facility] Diagnosis Onset Date Resolution Status Herniated nucleus pulposus, C5-6 left acute [facility] Work Phone: Evaluation note* Diagnosis Cervical radiculitis- Primary Brachial neuritis or radiculitis nos documented [facility] Diagnosis Onset Date Resolution Status Herniated nucleus pulposus, C5-6 left acute Herniated nucleus pulposus, C5-6 left acute Herniated nucleus pulposus, C6-7 left acute Herniated nucleus pulposus, C6-7 left acute Herniated nucleus pulposus, C5-6 left acute Herniated nucleus pulposus, C6-7 left acute [facility] Work Phone: Evaluation note* Diagnosis RUQ abdominal pain- Primary Abdominal pain, right upper quadrant [facility] Diagnosis RUQ abdominal pain- Primary Abdominal pain, right upper quadrant Elevated alkaline phosphatase level Other nonspecific abnormal serum enzyme levels [facility] Diagnosis Left hand pain- Primary Pain in limb Fall down stairs, subsequent encounter [facility] Diagnosis Fall, initial encounter documented in this encounter [facility] for referral (narrative)* Diagnostic Procedure Only (Routine) - Authorized Specialty Diagnoses / Procedures Referred By Contac t Referred To Contact US IMAGING Diagnoses RUQ abdominal pain Procedures US ABD RT UPPER QUADRANT US ABDOMINAL REAL TIME W/IMAGE LIMITED Aristides Black PA-C [address] [place] [address] Us Imaging Referral ID Status Reason Start Date Expiration Date Visits Requested Visits Authorized [id number] Authorized Auto-Generat ed Referral 05/07/2022 06/06/2023 1 1 [facility] for referral (narrative)* Diagnostic Procedure Only (Urgent) - Closed Specialty Diagnoses / Procedures Referred By Contac t Referred To Contact XR IMAGING Diagnoses Fall, initial encounter Cervical disc disorder at C6-C7 level with radiculopathy Procedures XR CERV OTHER 4V AP/LAT/OBL RADEX SPINE CERVICAL 4 OR 5 VIEWS Marsha Sharpe APRN.COPYWRITER [address] [place] [address] [place] [address] Referral ID Status Reason Start Date Expiration Date V isits Requested Visits Authorized [id number] Closed Auto-Generate d Referral 02/16/2023 03/17/2024 1 1 * Diagnostic Procedure Only (Urgent) - Closed Specialty Diagnoses / Procedures Referred By Contac t Referred To Contact XR IMAGING Diagnoses Fall, initial encounter Hand pain, left Procedures XR HAND GENERAL 3V PA/LAT/OBL LEFT RADEX HAND MINIMUM 3 VIEWS Marsha Sharpe APRN.COPYWRITER [address] [place] [address] [place] [address] Referral ID Status Reason Start Date Expiration Date V isits Requested Visits Authorized [id number] Closed Auto-Generate d Referral 02/16/2023 03/17/2024 1 1 * Diagnostic Procedure Only (Urgent) - Closed Specialty Diagnoses / Procedures Referred By Contac t Referred To Contact XR IMAGING Diagnoses Fall, initial encounter Hand pain, left Procedures XR WRIST GENERAL 3V PA/LAT/OBL LEFT RADEX WRIST COMPLETE MINIMUM 3 VIEWS Marsha Sharpe APRN.COPYWRITER [address] [place] [address] [place] [address] Referral ID Status Reason Start Date Expiration Date V isits Requested Visits Authorized [id number] Closed Auto-Generate d Referral 02/16/2023 03/17/2024 [facility] Diagnostic Procedure Only (Urgent) - Closed Specialty Diagnoses / Procedures Referred By Contac t Referred To Contact XR IMAGING Diagnoses Fall, initial encounter Cervical disc disorder at C6-C7 level with radiculopathy Procedures XR CERV OTHER 4V AP/LAT/OBL RADEX SPINE CERVICAL 4 OR 5 VIEWS Marsha Sharpe APRN.COPYWRITER [address] [place] [address] [place] [address] Referral ID Status Reason Start Date Expiration Date V isits Requested Visits Authorized [id number] Closed Auto-Generate d Referral 02/16/2023 03/17/2024 1 1 [facility] Summary Purpose Family History No Family History Records FoundNo Family History Records FoundNo Family History Records FoundNo Family History Records Found Advance Directives Advance Directive Response Recorded Date/ Time Living Will No December 18, 2021 9:59am Power of Rubber Liner No December 18 9:59am Documents on File Type Date Recorded 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 Advance Directive(s) 11/14/2019 6:25 AM Documents on File Type Date Recorded 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 Advance Directive(s) 11/14/2019 6:25 AM Advance Directive Response Recorded Date/ Time Living Will No February 17, 2022 1 :08pm Power of Rubber Liner No February 17, 2022 1:08pm Chief Complaint and Reason for Visit Chief Complaint neck Chief Complaint neck CERVICAL SPINE HERNIATED NUCLEUS PULPOSUS, C5-6 Reason for Visit Herniated nucleus pu lposus, C5-6 left Chief Complaint neck CERVICAL SPINE HERNIATED NUCLEUS PULPOSUS, C5-6 cervical cervical ANTERIOR CERVICAL FUSION ANTERIOR CERVICAL FUSION ANTERIOR CERVICAL FUSION ANTERIOR CERVICAL FUSION ANTERIOR CERVICAL FUSION ANTERIOR CERVICAL FUSION Reason for Visit Herniated nucleus pu lposus, C5-6 left Herniated nucleus pulposus, C5-6 left Herniated nucleus pulposus, C6-7 left Herniated nucleus pulposus, C6-7 left Herniated nucleus pulposus, C5-6 left Herniated nucleus pulposus, C6-7 left Reason for Referral Specialty Diagnoses / Procedures Referred By Osmel t Referred To Contact Diagnoses Foraminal stenosis of cervical region Procedures CONSULT TO SPINE SURGERY OFFICE/OUTPATIENT [facility] [id number] MINUTES Aristides Black PA-C [address] [place] [address] Referral ID Status Reason Start Date Expiration Date Visits Requested Visits Authorized [id number] Authorized PCP Requested Referral 12/24/2021 12/24/2022 1 1 Additional Source Comments (unrecognized sect ion and content) No Status Records FoundNo Status Records FoundNo Status Records FoundNo Status Records Found INFORMATION SOURCE (unrecogn ized section and content) DATE CREATED AUTHOR 03/16/2018 [facility] DATE CREATED AUTHOR AUTHOR'S ORGANIZ ATION 2021 [facility] ([place] DATE CREATED AUTHOR AUTHOR'S ORGANIZ ATION 05/27/2022 [facility] DATE CREATED AUTHOR AUTHOR'S ORGANIZ ATION 03/19/[address] [facility] Goals (unrecognized section and content) Goals may be documented in a n alternate sectionGoals may be documented in an alternate sectionGoals may be documented in an alternate section Source Comments (unrecognize d section and content) In the event this informatio n is protected by the Federal Confidentiality of Alcohol and Drug Abuse Patient Records regulations: The Federal rules restrict any use of the information to criminally investigate or prosecute any alcohol or drug abuse patient.[facility] the event this information is protected by the Federal Confidentiality of Alcohol and Drug Abuse Patient Records regulations: The Federal rules restrict any use of the information to criminally investigate or prosecute any alcohol or drug abuse patient.[facility] Hospital[facility] the event this information is protected by the Federal Confidentiality of Alcohol and Drug Abuse Patient Records regulations: The Federal rules restrict any use of the information to criminally investigate or prosecute any alcohol or drug abuse patient.[facility] Hospital[facility] the event this information is protected by the Federal Confidentiality of Alcohol and Drug Abuse Patient Records regulations: The Federal rules restrict any use of the information to criminally investigate or prosecute any alcohol or drug abuse patient.[facility] Hospital[facility] the event this information is protected by the Federal Confidentiality of Alcohol and Drug Abuse Patient Records regulations: The Federal rules restrict any use of the information to criminally investigate or prosecute any alcohol or drug abuse patient.[facility] HospitalIn the event this information is protected by the Federal Confidentiality of Alcohol and Drug Abuse Patient Records regulations: The Federal rules restrict any use of the information to criminally investigate or prosecute any alcohol or drug abuse patient.[facility] HospitalIn the event this information is protected by the Federal Confidentiality of Alcohol and Drug Abuse Patient Records regulations: The Federal rules restrict any use of the information to criminally investigate or prosecute any alcohol or drug abuse patient.[facility] Hospital[facility] the event this information is protected by the Federal Confidentiality of Alcohol and Drug Abuse Patient Records regulations: The Federal rules restrict any use of the information to criminally investigate or prosecute any alcohol or drug abuse patient.[facility] Hospital[facility] the event this information is protected by the Federal Confidentiality of Alcohol and Drug Abuse Patient Records regulations: The Federal rules restrict any use of the information to criminally investigate or prosecute any alcohol or drug abuse patient.[facility] HospitalIn the event this information is protected by the Federal Confidentiality of Alcohol and Drug Abuse Patient Records regulations: The Federal rules restrict any use of the information to criminally investigate or prosecute any alcohol or drug abuse patient.[facility] HospitalIn the event this information is protected by the Federal Confidentiality of Alcohol and Drug Abuse Patient Records regulations: The Federal rules restrict any use of the information to criminally investigate or prosecute any alcohol or drug abuse patient.[facility] HospitalIn the event this information is protected by the Federal Confidentiality of Alcohol and Drug Abuse Patient Records regulations: The Federal rules restrict any use of the information to criminally investigate or prosecute any alcohol or drug abuse patient.[facility] HospitalIn the event this information is protected by the Federal Confidentiality of Alcohol and Drug Abuse Patient Records regulations: The Federal rules restrict any use of the information to criminally investigate or prosecute any alcohol or drug abuse patient.[facility] HospitalIn the event this information is protected by the Federal Confidentiality of Alcohol and Drug Abuse Patient Records regulations: The Federal rules restrict any use of the information to criminally investigate or prosecute any alcohol or drug abuse patient.[facility] HospitalIn the event this information is protected by the Federal Confidentiality of Alcohol and Drug Abuse Patient Records regulations: The Federal rules restrict any use of the information to criminally investigate or prosecute any alcohol or drug abuse patient.[facility] HospitalIn the event this information is protected by the Federal Confidentiality of Alcohol and Drug Abuse Patient Records regulations: The Federal rules restrict any use of the information to criminally investigate or prosecute any alcohol or drug abuse patient.[facility] HospitalIn the event this information is protected by the Federal Confidentiality of Alcohol and Drug Abuse Patient Records regulations: The Federal rules restrict any use of the information to criminally investigate or prosecute any alcohol or drug abuse patient.[facility] Reason for Visit (unrecogniz ed section and content) Reason Comments Physical Therapy Specialty Diagnoses / Procedures Referred By Osmel turner Referred To Contact [facility] Diagnoses Cervical disc disorder at C6-C7 level with radiculopathy Foraminal stenosis of cervical region Procedures CONSULT TO PHYSICAL THERAPY PHYSICAL THERAPY EVALUATION HIGH COMPLEX 45 MINS Aristides Black PA-C [address] [place] [address] [facility] [address] [place] [address] Referral ID Status Reason Start Date Expiration Date Visits Requested Visits Authorized [id number] Authorized Auto-Generat ed Referral 12/26/2021 09/26/2022 60 60 Reason Comments Results Reason Onset Date Comments Refill Request 12/29/2021 Reason Comments PT Eval Reason Comments Follow Up Neck pain Reason Comments Orders Reason Comments Forms Reason Comments disc request Reason Comments Abdominal Pain RUQ, 1 month Reason Comments Results Reason Comments New Fracture Reason Comments Patient Question Needing FMLA paperwo rk Care Teams (unrecognized sec tion and content) Cascara Bark Cutter Relationship Specialty Start Date End Date Aristides Black PA-C [address], [place] [id number] PCP - General Family Practice 09/12/19 Cascara Bark Cutter Relationship Specialty Start Date End Date Aritsides Black PA-C [address] [place], [place] [id number] PCP - General Family Practice 09/12/19 Cascara Bark Cutter Relationship Specialty Start Date End Date Aristides Black PA-C [address], [place] [id number] PCP - General Family Practice 09/12/19 Cascara Bark Cutter Relationship Specialty Start Date End Date Aristides Black PA-C [address] [place] [address] PCP - General Family Practice 09/12/19 Cascara Bark Cutter Relationship Specialty Start Date End Date Aristides Black PA-C [address] [place] [address] PCP - General Family Practice 09/12/19 Cascara Bark Cutter Relationship Specialty Start Date End Date Aristides Black PA-C [address] [place] [address] PCP - General Family Practice 09/12/19 Cascara Bark Cutter Relationship Specialty Start Date End Date Aristides Black PA-C [address] [place] [address] PCP - General Family Practice 09/12/19 Cascara Bark Cutter Relationship Specialty Start Date End Date Aristides Black PA-C [address] [place] [address] PCP - General Family Practice 09/12/19 Cascara Bark Cutter Relationship Specialty Start Date End Date Aristides Black PA-C [address] [place] [address] PCP - General Family Practice 09/12/19 Cascara Bark Cutter Relationship Specialty Start Date End Date Aristides Black PA-C [address] [place] [address] PCP - General Family Practice 09/12/19 Cascara Bark Cutter Relationship Specialty Start Date End Date Aristides Black PA-C [id number] [place] [address] PCP - General Family Practice 09/12/19 Cascara Bark Cutter Relationship Specialty Start Date End Date Aristides Black PA-C [address] [place] [address] PCP - General Family Practice 09/12/19 Cascara Bark Cutter Relationship Specialty Start Date End Date Aristides Black PA-C [address], [place] [address] PCP - General Family [facility] 09/12/19 Cascara Bark Cutter Relationship Specialty Start Date End Date Aristides Black PA-C [address], [place] [id number] PCP - [facility] 09/12/19 Cascara Bark Cutter Relationship Specialty Start Date End Date Aristides Black PA-C [address], [place] [id number] PCP - [facility] 09/12/19 Cascara Bark Cutter Relationship Specialty Start Date End Date Aristides Black PA-C [address] [place] [address] PCP - General Family [facility] 09/12/19 FOR RECORDS PERTAINING TO PATIENTS WHO ARE OR HAVE BEEN ENROLLED IN A CHEMICAL DEPENDENCY/SUBSTANCEABUSE PROGRAM, SOME INFORMATION MAY BE OMITTED. This clinical summary was aggregated from multiple sources. Caution should be exercised in using it in the provision of clinical care. This summary normalizes information from multiple sources, and as a consequence, information in this document may materially change the coding, format and clinical context of patient data. In addition, data may be omitted in some cases. CLINICAL DECISIONS SHOULD BE BASED ON THE PRIMARY CLINICAL RECORDS. [employer] [facility]. provides no warranty or guarantee of the accuracy or completeness of information in this document.
--- NOTE | 2025-05-19 16:40 | CM.ED ---
Date of referral: 05/19/25 Reason for referral: No Primary Care Physician Referred by: Social Work Identification Patient provided consent for visit. Patient confirmed he does not currently have a PCP. Drying Room Attendant offered patient a written handout to the [facility] which patient accepted and expressed appreciation for. Marie Del Rio, TALENT AGENT, SPRING LAYER
[2025-05-19 16:48] VITALS: BP 133/91; PULSE 72; RESP 16; TEMP 37.2; O2SAT 100
== END 2025-05-19 16:50 | disposition home or self-care (01) ==
PROVIDERS: Emergency Provider Emergency Medicine; Visit Provider Emergency Medicine
DX: S60.221A Contusion of right hand, initial encounter (principal); S63.601A Unspecified sprain of right thumb, initial encounter; F17.210 Nicotine dependence, cigarettes, uncomplicated; W18.30XA Fall on same level, unspecified, initial encounter; Y92.410 Unspecified street and highway as the place of occurrence of the external cause
CPT/HCPCS: 73130; 99283

== ENCOUNTER 2025-07-08 15:49 | Emergency (ER) | payer BC, SELFPAY ==
[2025-07-08 15:49] VITALS: BP 138/100; PULSE 122; RESP 20; TEMP 36.8; O2SAT 98
--- NOTE | 2025-07-08 16:23 | CM.ED ---
Social Work Date of referral: 07/08/25 Reason for referral: No Primary Care Physician (PCP) on file. Referred by: Social Work Identification. Patient provided consent to social work visit. Patient stated he used to see a PCP however the PCP left to go to the [facility] which social welfare administrator provided him a written hand-out for. Film Printer educated patient on the importance of getting connected to a PCP as well as routine scheduled visits which patient verbalized understanding of. Patient expressed appreciation. Marie Del Rio, MUSIC LEADER, PORCELAIN ENAMEL SPRAYER
[2025-07-08 16:45] VITALS: BMI 19.2
--- NOTE | 2025-07-08 17:19 | EDS_ITS ---
HPI History of Present Illness HPI Narrative: Patient presents with right foot injury that occurred yesterday. Patient states he was running and felt a pop. Patient is unsure if he stepped in a small hole. Patient states pain became worse today. Patient describes the pain as sharp. Patient states the pain is worse with weightbearing. Patient admits to occasional tingling over the top of his foot. Patient denies any weakness. Patient denies falling. Patient denies any other injuries. Chief Complaint: Lower Extremity Injury Informant: patient Onset/Context/Timing Onset: Yesterday Context: Sudden Onset Timing: Continuous Quality of Pain: Sharp Location: Right foot Worsened by: Weightbearing Relieved by: Nothing Associated Symptoms Associated Symptoms: Positive for Parasthesia PFSH [facility] Medical History Anxiety Alcohol use History of steroid therapy Arthritis Excessive bleeding Injury of head and neck Heartburn Smoker Neck ache Allergy/AdvReac Type Severity Reaction Status Date / Time Penicillins Allergy Hives Verified 07/08/25 15:52 horseradish AdvReac PT UNSURE Verified 07/08/25 15:52 OF REACTION tramadol (From Ultram) AdvReac Swelling Verified 07/08/25 15:52 Family History no significant family his Surgical History Hx of wisdom tooth extraction Hx of inguinal hernia surgery Social History Smoking Status: Current every day smoker tobacco type: cigarettes ROS ROS ED Constitutional Constitutional ED: Denies chills or fever(s) Eyes Eyes: Denies blurry vision or change in vision ENT ENT ED: Denies rhinorrhea or sore throat Cardiovascular Cardiovascular: Denies chest pain or palpitations Respiratory/Chest Respiratory/Chest: Denies cough or dyspnea Gastrointestinal Gastrointestinal: Denies nausea or vomiting Genitourinary Genitourinary ED: Denies dysuria or hematuria Musculoskeletal Musculoskeletal: Denies back pain or neck pain Integumentary Denies abscess or rash Neurologic Neurologic: Denies headache(s) or weakness Allergic/Immunologic Allergic/Immunologic ED: Denies mouth swelling or urticaria EXAM Physical Exam Const Vital Signs: 07/08/25 15:49 07/08/25 18:51 Temperature 98.2 F 97.6 F L Temperature Source Oral Pulse Rate 122 H 105 H Respiratory Rate 20 H 19 H Blood Pressure 138/100 H 130/99 H Blood Pressure Mean 112 109 Pulse Ox 98 100 Oxygen Delivery Method Room Air Positive well nourished and well developed Constitutional Narrative: BMI is 19.3. General Appearance ED: well developed and NAD HEENT Reports moist mucous membranes Neck full ROM Extremity Extremity Narrative: There is tenderness to palpation over the dorsal aspect of the right foot. There is no obvious deformity noted. There is some mild edema. There is no ecchymosis. Range of motion was limited in all motions of the right foot secondary to pain. Sensation was intact to light touch in all digits. Capillary refill was less than 2 seconds in all digits. Pedal pulses are equal bilaterally. Neuro oriented x3, CN's II-XII intact bilaterally, moves all extremities and no sensory deficits noted Sensorium / Orientation: alert Motor Exam: strength 5/5 throughout Psych mental status grossly normal MDM MDM MDM Narrative Medical decision making narrative: Differential diagnose includes fracture, sprain, and contusion. X-rays of the right foot will be obtained to assess for fracture. Radiography Diagnostic Testing: Clinical Impression(s) from Imaging Studies Foot X-Ray 07/08/25 17:33 IMPRESSION: 1. Soft tissue swelling without acute fracture. 2. If symptoms persist, repeat radiograph in 10-14 days recommended. Reading Location: [facility] X-rays of the right foot were obtained. There are 3 views. On my independent interpretation, there is no acute fracture or dislocation noted. There is mild soft tissue swelling noted. Radiologist also interpreted the x-rays and agrees. Treatment and Re-Evaluation Narrative: Patient is given a dose of ibuprofen here. Patient was advised of his findings. Patient given a postop shoe. Patient has crutches already. Patient was instructed to use these as needed to help with weightbearing. Patient was instructed to ice and elevate the right foot. Patient was instructed continue ibuprofen or Tylenol as needed for pain. Patient was instructed to follow-up with his primary care physician in 5 to 7 days. Patient was instructed to return if worse in any way. Patient understood and was agreeable with the plan. All questions were answered. Discharge Plan Triage Chief Complaint: Lower Extremity Injury ED Provider: Nathanael Méndez Dx/Rx/DC Orders Clinical Impression: Sprain of left foot, Tobacco use Instructions: ED Foot Sprain Primary Care Provider: Care Physician,No Primary Referrals: Leslie Marks DO [Med Staff - Active Staff, Family Practice] - 5-7 Days Care Physician,No Primary [Primary Care Provider, Medical] Print Language: Bolivian Disposition Disposition: Home, Self Care Discharge Date/Time: 07/08/25 18:52
--- NOTE | 2025-07-08 17:33 | RAD_ITS ---
EXAM: XR Right Foot Complete, 3 or More Views CLINICAL INDICATION: INJURY/PAIN TECHNIQUE: Frontal, lateral and oblique views of the right foot. COMPARISON: No relevant prior studies available. FINDINGS: BONES/JOINTS: See below. SOFT TISSUES: Soft tissue swelling without acute fracture. RAD/Foot min 3 Views IMPRESSION: 1. Soft tissue swelling without acute fracture. 2. If symptoms persist, repeat radiograph in 10-14 days recommended. Reading Location: [id number]
[2025-07-08 18:51] VITALS: BP 130/99; PULSE 105; RESP 19; TEMP 36.4; O2SAT 100
== END 2025-07-08 18:52 | disposition home or self-care (01) ==
PROVIDERS: Emergency Provider Emergency Medicine; Visit Provider Emergency Medicine
DX: S93.602A Unspecified sprain of left foot, initial encounter (principal); X58.XXXA Exposure to other specified factors, initial encounter; Y93.02 Activity, running; F17.210 Nicotine dependence, cigarettes, uncomplicated
CPT/HCPCS: 73630; 99283